=== PATIENT | female | born 1940 | race Caucasian/White ===

== ENCOUNTER 2018-02-16 16:31 | Observation (INO) | payer MEDICAID, MEDICARE ==
[2018-02-16] MEDS ORDERED: Sodium Chloride 0.9% 10 ML Syringe FLUSH PRN (17:21)
[2018-02-16] MEDS ORDERED: Sodium Chloride 0.9% 1,000 ML IV SCH (17:30)
[2018-02-16] MEDS ORDERED: Ondansetron 4 MG/2 ML SDV IV PRN (18:19)
--- NOTE | 2018-02-16 18:19 | EDM.PDOC ---
ED HPI GENERAL MEDICAL PROBLEM - General Chief Complaint: Cardiovascular Problem Stated Complaint: DIZZY,FALL Time Seen by Provider: 02/16/18 16:31 Source of Information: Reports: Patient, Family History Limitations: Reports: Physical Impairment - History of Present Illness INITIAL COMMENTS - FREE TEXT/NARRATIVE: 77 y.o.w.f with newly diagnosed Breast CA, came to the ed by EMS after she fell at home. Pt denies any pain. "i just got suddenly weak and fell on by budd and head. Before she fell she got lightheaded. Pt denied LOC denies any kind of pain. She had thsi never happen before. She lives by herself and gets meals on wheels. She take Coumadin because she had a blood clot in Her abdomen(?)10 or more years ago. She take potassium at home, denied any kidney issues. no other acute medical issues. Pt is a poor historian, poor hygiene, Daughter is present. BP 117/74 Pulse ox 95% on RA RR 18, Temp 36.8 Onset Date: 02/16/18 Onset Time: 12:00 Duration: Hour(s): Location: Reports: Back Severity: Mild Improves with: Reports: Rest Worsens with: Reports: Movement Context: Reports: Other (Fall) butt Pain Score (Numeric/FACES): 3 - Related Data Allergies Allergy/AdvReac Type Severity Reaction Status Date / Time No Known Allergies Allergy Verified 02/16/18 17:32 Home Meds: Home Meds Calcium Carbonate/Vitamin D3 [Calcium 600 + Vit D 200] 1 tab PO BID 02/16/18 [ History] Cholestyramine (With Sugar) [Cholestyramine Powder] 1 scoop PO BID 02/16/18 [ History] Diphenoxylate HCl/Atropine [Lomotil] 1 tab PO BID PRN 02/16/18 [History] Doxepin [SINEquan] 25 mg PO BEDTIME 02/16/18 [History] Doxepin [SINEquan] 100 mg PO BEDTIME 02/16/18 [History] Enalapril [Vasotec] 5 mg PO DAILY 02/16/18 [History] Hydrochlorothiazide 12.5 mg PO DAILY 02/16/18 [History] LORazepam 0.5 mg PO BEDTIME PRN 02/16/18 [History] Latanoprost 1 drop EYEBOTH BEDTIME 02/16/18 [History] Levothyroxine 112 mcg PO DAILY 02/16/18 [History] Worthing Carbonate 300 mg PO BEDTIME 02/16/18 [History] Metoprolol Succinate [Toprol Xl] 50 mg PO DAILY 02/16/18 [History] Multivitamin [Multivitamins] 1 tab PO DAILY 02/16/18 [History] Pantoprazole Sodium 40 mg PO BID 02/16/18 [History] Potassium Chloride 10 meq PO DAILY 02/16/18 [History] Triamcinolone Acetonide [Triamcinolone Acetonide 0.1% Crm] 1 applic TOP BID [History] Warfarin Sodium [Jantoven] 2.5 mg PO DAILY 02/16/18 [History] amLODIPine Besylate [Norvasc] 2.5 mg PO DAILY 02/16/18 [History] atorvaSTATin Calcium [Atorvastatin Calcium] 20 mg PO BEDTIME 02/16/18 [History] ED ROS GENERAL - Review of Systems Review Of Systems: See Below Constitutional: Reports: Weakness, Fatigue HEENT: Reports: Other (dry mucosal membrane) Respiratory: Reports: No Symptoms Cardiovascular: Reports: Lightheadedness, Palpitations, Syncope Endocrine: Reports: No Symptoms GI/Abdominal: Reports: No Symptoms : Reports: No Symptoms Musculoskeletal: Reports: No Symptoms Skin: Reports: No Symptoms Neurological: Reports: Dizziness, Other (posible near syncopy) Psychiatric: Reports: No Symptoms Hematologic/Lymphatic: Reports: No Symptoms Immunologic: Reports: No Symptoms ED EXAM, GENERAL - Physical Exam Exam: See Below Exam Limited By: Altered Mental Status General Appearance: Alert, WD/WN, Mild Distress Eye Exam: Bilateral Eye: Normal Inspection Ears: Normal External Exam Ear Exam: Bilateral Ear: Auricle Normal Throat/Mouth: Normal Lips, Normal Gums, No Airway Compromise, Other (dry mucosal mmebrane) Head: Other (tender left occiput) Neck: Supple, Non-Tender, Full Range of Motion Respiratory/Chest: No Respiratory Distress, Lungs Clear, Normal Breath Sounds Cardiovascular: Other (Mobitz Typ II arrythmia) Peripheral Pulses: 1+: Brachial (R) GI/Abdominal: Normal Bowel Sounds, Soft, Non-Tender, No Organomegaly (Female) Exam: Deferred Rectal (Female) Exam: Deferred Back Exam: Normal Inspection, Full Range of Motion Extremities: Normal Inspection, Normal Range of Motion, Non-Tender, No Pedal Edema Neurological: Alert, Oriented, CN II-XII Intact, Normal Cognition, Other ( unsteady gate) Psychiatric: Normal Affect, Anxious Skin Exam: Warm, Dry, Other (possible psoriasis abd. wall) Lymphatic: No Adenopathy EKG INTERPRETATION EKG Date: 02/16/18 Time: 17:10 Rhythm: NSR Rate (Beats/Min): 92 [place]: Normal P-Wave: Present QRS: Normal ST-T: Normal QT: Prolonged (603) Comparison: NA - No Prior EKG EKG Interpretation Comments: Mobitz Typ II arrhythmia Course - Vital Signs Text/Narrative:: 77 y.o.w.f with newly diagnosed Breast CA, came to the ed by EMS after she fell at home. Pt denies any pain. "i just got suddenly weak and fell on by budd and head. Before she fell she got lightheaded. Pt denied LOC denies any kind of pain. She had thsi never happen before. She lives by herself and gets meals on wheels. She take Coumadin because she had a blood clot in Her abdomen(?)10 or more years ago. She take potassium at home, denied any kidney issues. no other acute medical issues. Pt is a poor historian, poor hygiene, Daughter is present. BP 117/74 Pulse ox 95% on RA RR 18, Temp 36.8 PE: WNWD W F came to the ED by EMS after she had a possible near syncope at home , poor historian. Imaging: CT head: NAD CXR: NAD, official report is pending Labs: Na 137 K 2.4 Cr. 2.2 BUN 31 INR 3.99 WBC 15.3 GFR 22 CK 199 UA pos for UTI ( was pending at time of admision) Impression: Renal insuff, Hypokalemia, Hypertherapeutic INR, H/O DVT, Mobits Typ II Arrythmia, Fall. Breast CA (newly diagnosed), possible near syncope. UTI Tx: NS, Cipro (started 02/17/2018 11 am), hold Coumadine 6.08pm Consultation: Dr. Light< hospitalist: Admit pt to tele Plan: Admit Last Recorded V/S: Last Vital Signs Temp 36.5 C 02/17/18 08:19 Pulse 90 02/17/18 08:19 Resp 18 02/17/18 08:19 BP 118/66 02/17/18 08:19 Pulse Ox 93 L 02/17/18 10:16 - Orders/Labs/Meds Orders: Active Orders 24 hr Category Date Time Status Chest 1V Frontal [CR] Stat Exams 02/16/18 17:21 Taken UA W/MICROSCOPIC [URIN] Stat Lab 02/17/18 00:25 Ordered Sodium Chloride 0.9% [Saline Flush] Med 02/16/18 17:21 Active 10 ml FLUSH ASDIRECTED PRN Peripheral IV Insertion Adult [OM.PC] Routine Oth 02/16/18 17:21 Ordered EKG 12 Lead [EK] Routine Ther 02/16/18 17:00 Ordered Medication Orders Amlodipine Besylate (Norvasc) 2.5 mg PO DAILY ARYAN Last Admin: 02/17/18 10:51 Dose: 2.5 mg Doxepin HCl (Sinequan) 25 mg PO BEDTIME ARYAN Doxepin HCl (Sinequan) 100 mg PO BEDTIME ARYAN Enalapril Maleate (Vasotec) 5 mg PO DAILY ARYAN Potassium Chloride/Sodium Chloride (Normal Saline With 20 Meq Kcl) 1,000 mls @ 125 mls/hr IV ASDIRECTED ARYAN Last Admin: 02/17/18 08:25 Dose: 125 mls/hr Infusion: 02/17/18 08:23 Dose: 125 mls/hr Admin: 02/17/18 00:23 Dose: 125 mls/hr Levothyroxine Sodium (Levothyroxine) 112 mcg PO DAILY ARYAN Last Admin: 02/17/18 10:51 Dose: 112 mcg [place] Carbonate (Eskalith) 300 mg PO BEDTIME ARYAN Lorazepam (Ativan) 0.5 mg PO BEDTIME PRN PRN Reason: Insomnia Metoprolol Succinate (Toprol Xl) 50 mg PO DAILY ARYAN Ondansetron HCl (Zofran) 4 mg IV Q4H PRN PRN Reason: Nausea/Vomiting Pantoprazole Sodium (Protonix) 40 mg PO BID [facility] Potassium Chloride (Klor-Con 10) 10 meq PO DAILY [facility] Sodium Chloride (Saline Flush) 10 ml FLUSH ASDIRECTED PRN PRN Reason: Keep Vein Open Last Admin: 02/16/18 17:30 Dose: 10 ml Labs: Laboratory Tests 02/16/18 02/16/18 02/16/18 Range/Units 17:35 17:35 17:35 WBC 15.1 H (4.5-12.0) X10-3/uL RBC 4.37 (3.23-5.20) x10(6)uL Hgb 13.4 (11.5-15.5) g/dL Hct 39.2 (30.0-51.3) % MCV 89.8 (80-96) fL MCH 30.6 (27.7-33.6) pg MCHC 34.1 (32.2-35.4) g/dL RDW 14.8 (11.5-15.5) % Plt Count 402 H (125-369) X10(3)uL MPV 8.1 (7.4-10.4) fL Add Manual Diff Yes Neutrophils % (Manual) 78 (46-82) % Band Neutrophils % 5 (0-6) % Lymphocytes % (Manual) 8 L (13-37) % Monocytes % (Manual) 9 (4-12) % PT 41.4 H* (8.7-11.1) INR 3.99 H (0.89-1.13) Sodium 139 (135-145) mmol/L Potassium 2.4 L* (3.5-5.3) mmol/L Chloride 103 (100-110) mmol/L Carbon Dioxide 24 (21-32) mmol/L BUN 31 H (7-18) mg/dL Creatinine 2.2 H* (0.55-1.02) mg/dL Est Cr Clr Drug Dosing TNP Estimated GFR (MDRD) 22 L (>60) BUN/Creatinine Ratio 14.1 (9-20) Glucose 103 (80-116) mg/dL Calcium 9.5 (8.6-10.2) mg/dL Creatine Kinase 199 H (60-160) IU/L Troponin I (<0.017-0.056) ng/mL 02/16/18 Range/Units 17:35 WBC (4.5-12.0) X10-3/uL RBC (3.23-5.20) x10(6)uL Hgb (11.5-15.5) g/dL Hct (30.0-51.3) % MCV (80-96) fL MCH (27.7-33.6) pg MCHC (32.2-35.4) g/dL RDW (11.5-15.5) % Plt Count (125-369) X10(3)uL MPV (7.4-10.4) fL Add Manual Diff Neutrophils % (Manual) (46-82) % Band Neutrophils % (0-6) % Lymphocytes % (Manual) (13-37) % Monocytes % (Manual) (4-12) % PT (8.7-11.1) INR (0.89-1.13) Sodium (135-145) mmol/L Potassium (3.5-5.3) mmol/L Chloride (100-110) mmol/L Carbon Dioxide (21-32) mmol/L BUN (7-18) mg/dL Creatinine (0.55-1.02) mg/dL Est Cr Clr Drug Dosing Estimated GFR (MDRD) (>60) BUN/Creatinine Ratio (9-20) Glucose (80-116) mg/dL Calcium (8.6-10.2) mg/dL Creatine Kinase (60-160) IU/L Troponin I < 0.017 L (<0.017-0.056) ng/mL Meds: Medications Generic Name Dose Route Start Last Admin Trade Name Mary PRN Reason Stop Dose Admin Amlodipine Besylate 2.5 mg 02/17/18 10:42 02/17/18 10:51 Norvasc PO 2.5 mg DAILY ARYAN Administration Doxepin HCl 25 mg 02/17/18 21:00 Sinequan PO BEDTIME ARYAN Doxepin HCl 100 mg 02/17/18 21:00 Sinequan PO BEDTIME ARYAN Enalapril Maleate 5 mg 02/18/18 09:00 Vasotec PO DAILY ARYAN Potassium Chloride/Sodium Chloride 1,000 mls @ 125 mls/hr 02/16/18 23:30 12/06 08:25 Normal Saline With 20 Meq Kcl IV 125 mls/hr ASDIRECTED ARYAN Administration Levothyroxine Sodium 112 mcg 02/17/18 10:00 02/17/18 10:51 Levothyroxine PO 112 mcg DAILY ARYAN Administration Worthing Carbonate 300 mg 02/17/18 21:00 Eskalith PO BEDTIME ARYAN Lorazepam 0.5 mg 02/17/18 09:50 Ativan PO BEDTIME PRN Insomnia Metoprolol Succinate 50 mg 02/18/18 09:00 Toprol Xl PO DAILY [facility] Ondansetron HCl 4 mg 02/16/18 18:19 Zofran IV Q4H PRN Nausea/Vomiting Pantoprazole Sodium 40 mg 02/17/18 21:00 Protonix PO BID ARYAN Potassium Chloride 10 meq 02/18/18 09:00 Klor-Con 10 PO DAILY ARYAN Sodium Chloride 10 ml 02/16/18 17:21 02/16/18 17:30 Saline Flush FLUSH 10 ml ASDIRECTED PRN Administration Keep Vein Open Discontinued Medications Generic Name Dose Route Start Last Admin Trade Name Freq PRN Reason Stop Dose Admin Amlodipine Besylate 2.5 mg 02/17/18 10:00 02/17/18 10:54 Norvasc PO Not Given DAILY ARYAN Amlodipine Besylate Confirm 02/17/18 10:32 02/17/18 10:48 Norvasc Administered 02/17/18 10:33 Not Given Dose 5 mg .ROUTE .STK-MED ONE Ciprofloxacin 500 mg 02/17/18 10:45 02/17/18 10:51 Ciprofloxacin Hcl PO 02/17/18 10:46 500 mg ONETIME STA Administration Enalapril Maleate 5 mg 02/17/18 10:00 02/17/18 10:54 Vasotec PO Not Given DAILY [facility] Enalapril Maleate Confirm 02/17/18 10:33 02/17/18 10:48 Vasotec Administered 02/17/18 10:34 Not Given Dose 5 mg .ROUTE .STK-MED ONE Enalapril Maleate 5 mg 02/17/18 10:45 02/17/18 10:51 Vasotec PO 02/17/18 10:46 5 mg ONETIME ONE Administration Sodium Chloride 1,000 mls @ 125 mls/hr 02/16/18 17:30 02/16/18 17:30 Normal Saline IV 125 mls/hr ASDIRECTED [facility] Administration Potassium Chloride 40 meq 02/16/18 23:25 02/17/18 00:20 Klor-Con M20 PO 02/16/18 23:26 40 meq ONETIME ONE Administration Departure - Departure Time of Disposition: 19:00 Disposition: Admitted As Inpatient 67 Condition: Fair Clinical Impression: Near syncope, Palpitations, Mobitz (type) II atrioventricular block Fall Qualifiers: Encounter type: initial encounter Qualified Code(s): W19.XXXA - Unspecified fall, initial encounter - My Orders Last 24 Hours: My Active Orders 02/16/18 17:00 EKG 12 Lead [EK] Routine 02/16/18 17:21 Chest 1V Frontal [CR] Stat Sodium Chloride 0.9% [Saline Flush] 10 ml FLUSH ASDIRECTED PRN Peripheral IV Insertion Adult [OM.PC] Routine 02/17/18 00:25 UA W/MICROSCOPIC [URIN] Stat - Assessment/Plan Last 24 Hours: My Active Orders 02/16/18 17:00 EKG 12 Lead [EK] Routine 02/16/18 17:21 Chest 1V Frontal [CR] Stat Sodium Chloride 0.9% [Saline Flush] 10 ml FLUSH ASDIRECTED PRN Peripheral IV Insertion Adult [OM.PC] Routine 02/17/18 00:25 UA W/MICROSCOPIC [URIN] Stat
[2018-02-16] MEDS ORDERED: Potassium Chloride 20 MEQ Tab.ER PO ONE (23:25)
[2018-02-17] MEDS: NS + KCl 20mEq/L 1,000 ML IV SCH ×2 (00:23→08:25)
[2018-02-17] MEDS ORDERED: LORazepam 0.5 MG Tab PO PRN (09:50)
[2018-02-17] MEDS ORDERED: amLODIPine 2.5 MG Tab PO SCH (10:00)
[2018-02-17] MEDS ORDERED: Enalapril 5 MG Tab PO SCH (10:00)
[2018-02-17] MEDS ORDERED: amLODIPine 5 MG Tab ONE (10:32)
[2018-02-17] MEDS ORDERED: amLODIPine 5 MG Tab PO SCH (10:42)
[2018-02-17] MEDS ORDERED: Ciprofloxacin 500 MG Tab PO STA (10:45)
[2018-02-17] MEDS: Levothyroxine 112 MCG Tab PO SCH (10:51)
--- NOTE | 2018-02-17 13:17 | HP ---
ADMISSION DATE: 02/16/2018 HISTORY OF PRESENT ILLNESS: Verenice Marcano is a 77-year-old female from [facility]. She was seen at [place] [facility]. She had a weak spell, sense of unsteadiness, and took a fall in her home in the bathroom. Luckily, her daughter attended her through the day. She denies chest pain, respiratory difficulty, or loss of consciousness. She was seen at [place] [facility]. Chest x-ray performed, no major pathology. CT normal by my observations. Laboratory studies were reviewed revealed INR 3.99, white count 15,100, platelet count 402,000, GFR 22, creatinine 2.2. Hypokalemia was treated, was admitted to the hospital, under present therapy. MEDICATIONS: Please see med recon list at length. ALLERGIES: No medication, environmental, or latex allergies. PAST MEDICAL HISTORY: Significant for right breast mastectomy for breast cancer 18 years ago, cholecystectomy for gallbladder disease. No other operative procedures, hospitalizations, unusual childhood diseases, major injuries, or fractures. Chronic illnesses include hypertension; atrial fibrillation, rate controlled on warfarin therapy; and mood disorder. 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 Three daughters, 1 son, 14 grandchildren. Nonsmoker. No alcohol consumption. No illicit drug use. REVIEW OF SYSTEMS: Please see HPI. EYES: Wears corrective glasses. OROPHARYNX: Upper and lower dentures. CARDIOVASCULAR: Denies chest pain, palpitations, or syncope. RESPIRATORY: Denies cough, respiratory difficulty, or hemoptysis. GASTROINTESTINAL: Regular predictable stools, no blood in stools. GENITOURINARY: Good voiding pattern. No blood in urine. SKIN: No open sores or lesions. ENDOCRINE: No excessive thirst or urination. ALLERGIC: No chronic cough, wheeze, or congestion. PHYSICAL EXAMINATION: VITAL SIGNS: Stable and documented. GENERAL: Elderly, cooperative, conversant, a bit whimsical with the conversation. Speech was fluent. EYES: Funduscopic benign. Conjunctivae clear. EARS: Bright tympanic membranes. Decreased hearing. NOSE: Clear nasal discharge. MOUTH AND OROPHARYNX: Clear. No intraoral lesions. NECK: Benign. Thyroid small. No carotid bruits. CHEST: Clear in all lung spencer. No adventitious sounds. HEART: Regular without ectopy or murmur. BREASTS: Right breast absent. Surgical site with Steri-Strips. Left breast 10 o'clock reviewed. ABDOMEN: Benign. Surgical scars well healed. GENITOURINARY AND RECTAL: Deferred. EXTREMITIES: Well perfused. Reflex symmetric. LABORATORY STUDIES: As above. ASSESSMENT: Recent fall, origin undetermined, intact brain, elevated INR. PLAN: We will withhold Coumadin at this time, intervention and care, close observation. Treatment as appropriate. Expectations accordingly. /[id number] /MARTHA
[2018-02-17] MEDS: Potassium Chloride 20 MEQ Tab.ER PO SCH (20:56)
[2018-02-17] MEDS: Pantoprazole 40 MG Tab.CR PO SCH (20:57)
[2018-02-17] MEDS ORDERED: Lithium Carbonate 300 MG Cap PO SCH (21:00)
[2018-02-17] MEDS ORDERED: Doxepin 25 MG Cap PO SCH ×2 (21:00)
[2018-02-18] MEDS ORDERED: Potassium Chloride 10 MEQ Tab.ER PO SCH (09:00)
[2018-02-18] MEDS ORDERED: Metoprolol Succinate 50 MG Tab.ER PO SCH (09:00)
[2018-02-18] MEDS ORDERED: Enalapril 5 MG Tab PO SCH (09:00)
[2018-02-18] MEDS: Pantoprazole 40 MG Tab.CR PO SCH (09:25)
[2018-02-18] MEDS: Levothyroxine 112 MCG Tab PO SCH (09:25)
[2018-02-18] MEDS: Potassium Chloride 20 MEQ Tab.ER PO SCH (10:22)
[2018-02-18] MEDS ORDERED: Ciprofloxacin 500 MG Tab PO SCH (11:00)
--- NOTE | 2018-02-18 14:05 | CR ---
INDICATION: Breast CA, fall. CHEST: An AP portable view of the chest was obtained upright, 02/16/2018, and revealed the heart to be within normal limits in size to slightly prominent, emphasized by rotation of the patient to the left. The aorta is tortuous with minimal calcification in the arch. Overlying EKG leads are noted. A definite active infiltrate or effusion was not identified, with decreased density in the right lung due to rotation of the patient to the left. Evidence of exogenous obesity is noted. Axillary node dissection and evidence of breast surgery is noted on the right. No definite metastatic disease process was suggested. IMPRESSION: 1. No definite acute process. 2. Probable ASHD. 3. Findings compatible with breast CA and axillary node dissection on the right are noted without definite evidence of metastatic disease. MTDD
--- NOTE | 2018-02-19 09:28 | DISCH ---
DISCHARGE DATE: 02/18/2018 DISCHARGE DIAGNOSES: 1. Marked hyponatremia with cardiac arrhythmia. 2. Elevated pro-time/INR. 3. Fall without consequence. HOSPITAL COURSE: Verenice Marcano is a 77-year-old, female, who lives independently. She had taken a fall in her home in her bathroom, was attended to her by her daughter and brought to the hospital. Diagnostic studies were unremarkable. Chest x-ray, no major pathology. CT normal by age, markedly elevated INR at 3.99, and potassium at 2.4. She had some mild atrial dysrhythmia without pathologic findings. Admitted to the hospital for intervention. Telemetry was satisfactory, minimal bradycardia, no complicating issues. She is scheduled to have surgery for a recent biopsy-proven right breast cancer. Dr. Drew, provider of record, [facility]. Potassium was replaced, symptoms improved, rhythm was stabilized. Discharged home with potassium 3.5. On a host of blood pressure pills. Will discontinue the hydrochlorothiazide, continue potassium orally, increase high potassium foods, and intervention. PHYSICAL EXAMINATION ON DISCHARGE: VITAL SIGNS: Temperature 36.4, pulse 80, blood pressure 116/55, respirations 20, O2 saturations 98%. GENERAL: Cooperative, conversant. Soft spoken. NECK: Benign. Thyroid small. CHEST: Clear in all lung spencer. HEART: Regular without ectopy or murmur. ABDOMEN: Benign. Absent right breast, biopsy site medial aspect right breast, Steri-Strips in place. PLAN: Discharge home with recommendations as above. Followup appointment with Dr. Drew. Surgery under consideration - delayed per patient's discussion. Follow up with Dr. Molina in 2 weeks' time. Recheck hospital visit and potassium level. /[id number] /MARTHA CC: Donaldo Drew MD
== END 2018-02-18 10:55 | disposition home or self-care (01) ==
LOC: FB.ED 16:31 → FB.MS 18:19 → FB.ED 19:05
PROVIDERS: ADMIT Family Medicine; ATTEND Family Medicine
DX: E87.1 Hypo-osmolality and hyponatremia (principal); I49.9 Cardiac arrhythmia, unspecified; R79.1 Abnormal coagulation profile; E87.6 Hypokalemia; I10 Essential (primary) hypertension; I48.91 Unspecified atrial fibrillation; W19.XXXA Unspecified fall, initial encounter; Z90.11 Acquired absence of right breast and nipple; Z85.3 Personal history of malignant neoplasm of breast; Z79.01 Long term (current) use of anticoagulants; Z79.899 Other long term (current) drug therapy
CPT/HCPCS: 36415; 70450; 71045; 80048; 81001; 82550; 83605; 84132; 84484; 85025; 85610; 87086; 93005; 96360; 96361; 99285; A9270; J2405; J3480; J7040; J7050; 96375; G0378

== ENCOUNTER → 2019-10-01 | Outpatient (CLI) | payer MEDICARE, BC | LOC: FB.CLBR 08:00 | PROVIDERS: ATTEND Nurse Practitioner Family | DX: S51.851A Open bite of right forearm, initial encounter (principal); W54.0XXA Bitten by dog, initial encounter | CPT/HCPCS: 99213 ==

== ENCOUNTER 2019-11-07 15:59 | Emergency (ER) | payer MEDICARE, MEDICAID ==
--- NOTE | 2019-11-07 16:27 | EDM.PDOC ---
ED HPI GENERAL MEDICAL PROBLEM - General Chief Complaint: Cardiovascular Problem Stated Complaint: HIGH BP Time Seen by Provider: 11/07/19 16:15 Source of Information: Reports: Patient History Limitations: Reports: No Limitations - History of Present Illness INITIAL COMMENTS - FREE TEXT/NARRATIVE: 78-year-old female with history of high blood pressure who apparently was seen in clinic yesterday telemedicine psychiatry's noted to have an elevated blood pressure on 3 different readings. She was seen by the physician executive marketing assistant who consulted with Dr. Molina and it was felt that the patient was having anxiety- type problems and the patient was given Ativan as well as being placed on Seroquel. It should be noted that the patient had no chest pain, shortness of breath, headaches at that time, just elevated blood pressure. Apparently today at the [facility] living, her blood pressure was rechecked and it was noted to be elevated again in the 190-200 systolic range. She again denies any chest pain, shortness of breath, headache, abdominal pain, urinary symptoms, confusion or any other symptoms. After having 3 abnormal readings, it was recommended that she come to the emergency department for evaluation. She has been eating and drinking normally. She has been taking her medications as directed. She did take an Ativan today after her first abnormal blood pressure reading and it did not seem to have any effect. She denies any pain at present. She rates her pain as a 0/10. There are no other associated signs or symptoms. There are no other modifying factors. Onset: Other (Yesterday) Duration: Constant Location: Reports: Other (No pain. No symptoms.) Quality: Reports: Other (That applicable) Improves with: Reports: None Worsens with: Reports: None Context: Reports: Other (As above) Associated Symptoms: Reports: No Other Symptoms (No symptoms. Just elevated blood pressure.) Treatments SECRETARY RECEPTIONIST: Reports: Other Medication(s) (Ativan) - Related Data Allergies Allergy/AdvReac Type Severity Reaction Status Date / Time No Known Allergies Allergy Verified 02/24/19 09:02 Home Meds: Home Meds Cholestyramine (With Sugar) [Cholestyramine Powder] 1 scoop PO BID 02/16/18 [ History] LORazepam 0.5 mg PO DAILY PRN 02/16/18 [History] Levothyroxine 112 mcg PO DAILY 02/16/18 [History] Y[place]y Carbonate 300 mg PO BEDTIME 02/16/18 [History] Metoprolol Succinate [Toprol Xl] 25 mg PO DAILY 02/16/18 [History] Potassium Chloride 10 meq PO DAILY 02/16/18 [History] Alendronate Sodium 70 mg PO WE 10/20/18 [History] Furosemide [Lasix] 20 mg PO DAILY #20 tab 10/20/18 [Rx] Warfarin Sodium [Jantoven] 2.5 mg PO DAILY 10/20/18 [History] Anastrozole [Arimidex] 1 mg PO DAILY 11/07/19 [History] Calcium Carbonate/Vitamin D3 [Caltrate 600+D 1500 MG-400 Units] 1 tab PO DAILY 11/07/19 [History] Diphenoxylate HCl/Atropine [Lomotil] 1 tab PO DAILY PRN 11/07/19 [History] Enalapril Maleate 20 mg PO DAILY 11/07/19 [History] Latanoprost [Xalatan] 1 drop EYEBOTH BEDTIME 11/07/19 [History] Multivit-Min/FA/Lycopen/Lutein [Certavite Sr-Antioxidant Tab] 1 tab PO DAILY [History] Phytonadione [Vitamin K] 100 mg PO DAILY 11/07/19 [History] QUEtiapine Fumarate [Quetiapine Fumarate] 100 mg PO BEDTIME 11/07/19 [History] amLODIPine [Norvasc] 5 mg PO DAILY #30 tab 11/07/19 [Rx] Past Medical History Cardiovascular History: Reports: Heart Failure, High Cholesterol, Hypertension Other MENDER HAND History: Musculoskeletal History: Reports: Arthritis, Other (See Below) (Lower extremity DVTs) Endocrine/Metabolic History: Reports: Hypothyroidism Hematologic History: Reports: Anticoagulation Therapy Oncologic (Cancer) History: Reports: Breast - Infectious Disease History Infectious Disease History: Reports: Chicken Pox, Mumps, Other (See Below) Other Infectious Disease History: Unsure if she had Measles or Rubella as a child. - Past Surgical History HEENT Surgical History: Reports: Tonsillectomy GI Surgical History: Reports: Cholecystectomy Female Surgical History: Reports: Section, Mastectomy (Bilateral) Oncologic Surgical History: Reports: Mastectomy Other Oncologic Surgeries/Procedures: Right mastectomy 18 years ago. May need left breast surgery for discovery of lumps. Social & Family History - Tobacco Use Smoking Status *Q: Former Smoker (Quit 8 years ago) - Caffeine Use Caffeine Use: Reports: Coffee, Soda - Alcohol Use Alcohol Use History: No - Living Situation & Occupation Living situation: Reports: Assisted Living Occupation: Retired Social History Comment: She is here with her daughter. ED ROS GENERAL - Review of Systems Review Of Systems: See Below Constitutional: Reports: No Symptoms HEENT: Reports: No Symptoms Respiratory: Reports: No Symptoms Cardiovascular: Reports: Blood Pressure Problem (Blood pressure reading was elevated, but no symptoms.) Endocrine: Reports: No Symptoms GI/Abdominal: Reports: No Symptoms : Reports: No Symptoms Musculoskeletal: Reports: Other (Chronic edema in both legs.) Skin: Reports: No Symptoms Neurological: Reports: No Symptoms Hematologic/Lymphatic: Reports: Easy Bleeding, Easy Bruising, Other ( Chronically anticoagulated with Coumadin.) Immunologic: Reports: No Symptoms ED EXAM, GENERAL - Physical Exam Exam: See Below Exam Limited By: No Limitations General Appearance: Alert, WD/WN, No Apparent Distress Eye Exam: Bilateral Eye: EOMI, Normal Inspection Ears: Normal External Exam, Hearing Grossly Normal Ear Exam: Bilateral Ear: Auricle Normal Nose: Normal Inspection, Normal Mucosa, No Blood Throat/Mouth: Normal Inspection, Normal Lips, Normal Oropharynx, Normal Voice, No Airway Compromise Head: Atraumatic, Normocephalic Neck: Normal Inspection, Supple, Non-Tender, Full Range of Motion Respiratory/Chest: No Respiratory Distress, Lungs Clear, Normal Breath Sounds, No Accessory Muscle Use, Chest Non-Tender Cardiovascular: Normal Peripheral Pulses, Regular Rate, Rhythm, No JVD, No Murmur Peripheral Pulses: 2+: Radial (L), Radial (R) GI/Abdominal: Normal Bowel Sounds, Soft, Non-Tender, No Mass Back Exam: Normal Inspection, Full Range of Motion Extremities: Normal Range of Motion, Non-Tender, Normal Capillary Refill Neurological: Alert, Oriented, CN II-XII Intact, Normal Cognition, No Motor/ Sensory Deficits Psychiatric: Normal Affect Skin Exam: Warm, Dry, Intact, Normal Color, No Rash Course - Vital Signs Last Recorded V/S: Last Vital Signs Temp 37.1 C 11/07/19 15:59 Pulse 84 11/07/19 16:57 Resp 16 11/07/19 15:59 BP 221/91 H 11/07/19 16:57 Pulse Ox 96 11/07/19 15:59 - Orders/Labs/Meds Meds: Medications Discontinued Medications Generic Name Dose Route Start Last Admin Trade Name Mary PRN Reason Stop Dose Admin Amlodipine Besylate 5 mg 11/08/19 16:46 Norvasc PO 11/08/19 16:47 ONETIME ONE Amlodipine Besylate 5 mg 11/07/19 16:49 11/07/19 16:57 Norvasc PO 11/07/19 16:50 5 mg ONETIME ONE Administration Metoprolol Tartrate 25 mg 11/07/19 16:45 11/07/19 16:57 Lopressor PO 11/07/19 16:46 25 mg ONETIME ONE Administration - Re-Assessments/Exams Free Text/Narrative Re-Assessment/Exam: 11/07/19 16:40: I discussed the patient's case with Dr. Molina, the patient's primary provider, as he had consulted with the PA who saw the patient yesterday in clinic and he recommends placing the patient back on amlodipine 5 mg daily and increasing the patient's metoprolol to 25 mg by mouth twice daily. He does not feel that any workup is needed at this time. He recommends that the patient follow-up in clinic with them in the next week or so. He eels that the patient is safe for discharge following the above. The patient is completely asymptomatic now. I discussed this with the patient and with her daughter and they are in agreement with this plan. Departure - Departure Time of Disposition: 17:05 Disposition: Home, Self-Care 01 Condition: Good Clinical Impression: Hypertension, uncontrolled Prescriptions: amLODIPine [Norvasc] 5 mg PO DAILY #30 tab Instructions: Hypertension, [id number], Managing Your Hypertension Referrals: Giovanny Molina MD [Primary Care Provider] - Forms: ED Department Discharge Additional Instructions: Your blood pressure is elevated. I discussed your case with Dr. Molina and he recommended adding new medication for your blood pressure. Change your metoprolol to 25 mg by mouth daily (you are now taking it once daily). New medication as prescribed (amlodipine 5 mg). You were given a dose of each of these today. You should have your blood pressure checked daily and keep a record of this to take with you when you follow-up with your doctor. You will need to follow-up with your primary provider in the next 1-2 weeks for recheck. Back to the emergency department for chest pain, trouble breathing, headache, vomiting, confusion, localized area of weakness or any other concerning sign or symptom. Sepsis Event Note - Focused Exam Vital Signs: Vital Signs Temp Pulse Pulse Resp BP BP Pulse Ox 11/07/19 16:57 84 221/91 H 11/07/19 15:59 37.1 C 84 16 221/91 H 96 Date Exam was Performed: 11/07/19 Time Exam was Performed: 17:43
[2019-11-07] MEDS ORDERED: Metoprolol Tartrate 25 MG Tab PO ONE (16:45)
[2019-11-07] MEDS ORDERED: amLODIPine 5 MG Tab PO ONE (16:49)
[2019-11-08] MEDS ORDERED: amLODIPine 5 MG Tab PO ONE (16:46)
== END 2019-11-07 17:30 | disposition home or self-care (01) ==
LOC: FB.ED 15:59
DX: I11.0 Hypertensive heart disease with heart failure (principal); I50.9 Heart failure, unspecified; E78.00 Pure hypercholesterolemia, unspecified; E03.9 Hypothyroidism, unspecified; Z79.899 Other long term (current) drug therapy; Z79.890 Hormone replacement therapy; Z79.01 Long term (current) use of anticoagulants; Z87.891 Personal history of nicotine dependence
CPT/HCPCS: 99283; A9270-GY

== ENCOUNTER 2021-10-23 09:00 | Inpatient (IN) | payer BC, MEDICARE ==
--- NOTE | 2021-10-23 09:40 | EDM.PDOC ---
ED HPI GENERAL MEDICAL PROBLEM - General Chief Complaint: General Stated Complaint: FALL Time Seen by Provider: 10/23/21 09:20 Source of Information: Reports: Patient, Family History Limitations: Reports: Other (Patient is a poor historian) - History of Present Illness INITIAL COMMENTS - FREE TEXT/NARRATIVE: 80-year-old lady brought to the emergency department by her daughter after being found on the floor at [facility]. Patient was seen in the walk-in clinic at [place], [place] on 10/19/2021. Lab analysis showed that she did not have a urinary tract infection at the time. At the time that I saw her I thought that she possibly was suffering from polypharmacy including the use of lorazepam, Fosamax, amlodipine, lithium ca rbonate, and quetiapine. Patient also takes propranolol, Lasix, Mihaela. Patient was seen in the walk-in clinic with the complaint of a 2 to 3-day history of increased weakness and confusion. She had had the symptoms in the past associated with UTI but she was not found to have UTI in the walk-in clinic. She was seen again yesterday at a different walk-in clinic and was restarted on her lorazepam. This morning she was trying to empty the garbage and thinks she must of just become weak and fell to the ground. She does not remember falling, she does not remember passing out. She has no physical aches or pains and no complaints. She does have some cough and congestion. She does not have fever, nausea, vomiting, chest pain. She does not complain of head pain, neck pain and has no other orthopedic complaints. - Related Data Allergies Allergy/AdvReac Type Severity Reaction Status Date / Time No Known Allergies Allergy Verified 02/24/19 09:02 Home Meds: Home Meds Cholestyramine (With Sugar) [Cholestyramine Powder] 1 scoop PO BID 02/16/18 [History] LORazepam 0.5 mg PO BID PRN 02/16/18 [History] Levothyroxine 112 mcg PO DAILY 02/16/18 [History] [place] Carbonate 300 mg PO BEDTIME 02/16/18 [History] Potassium Chloride 10 meq PO DAILY 02/16/18 [History] Alendronate Sodium 70 mg PO WE 10/20/18 [History] Anastrozole [Arimidex] 1 mg PO DAILY 11/07/19 [History] Calcium Carbonate/Vitamin D3 [Caltrate 600+D 1500 MG-400 Units] 1 tab PO BID 11/07/19 [History] Diphenoxylate HCl/Atropine [Lomotil] 1 tab PO DAILY PRN 11/07/19 [History] Enalapril Maleate 20 mg PO DAILY 11/07/19 [History] Multivit-Min/FA/Lycopen/Lutein [Certavite Senior Tablet] 1 tab PO DAILY 11/07/19 [History] Phytonadione [Vitamin K] 100 mcg PO DAILY 11/07/19 [History] QUEtiapine Fumarate [Quetiapine Fumarate] 100 mg PO BEDTIME 11/07/19 [History] amLODIPine [Norvasc] 5 mg PO DAILY #30 tab 11/07/19 [Rx] Clobetasol [Clobetasol Propionate 0.05%] 1 applic TOP BID 10/23/21 [History] Fexofenadine [Mihaela] 180 mg PO DAILY PRN 10/23/21 [History] Fluticasone Propionate [Flonase] 2 spray DEMARCUS DAILY 10/23/21 [History] Propranolol HCl [Inderal LA] 80 mg PO DAILY 10/23/21 [History] Warfarin Sodium [Jantoven] 0 mg PO MO 10/23/21 [History] Past Medical History Cardiovascular History: Reports: Heart Failure, High Cholesterol, Hypertension DATA INPUT CLERK History: Reports: Other DATA INPUT CLERK History: Musculoskeletal History: Reports: Arthritis, Other (See Below) (Lower extremity DVTs) Endocrine/Metabolic History: Reports: Hypothyroidism Hematologic History: Reports: Anticoagulation Therapy Oncologic (Cancer) History: Reports: Breast - Infectious Disease History Infectious Disease History: Reports: Chicken Pox, Mumps, Other (See Below) Other Infectious Disease History: Unsure if she had Measles or Rubella as a child. - Past Surgical History HEENT Surgical History: Reports: Tonsillectomy GI Surgical History: Reports: Cholecystectomy Female Surgical History: Reports: Section, Mastectomy (Bilateral) Oncologic Surgical History: Reports: Mastectomy Other Oncologic Surgeries/Procedures: Right mastectomy 18 years ago. May need left breast surgery for discovery of lumps. Social & Family History - Family History Family Medical History: No Pertinent Family History - Caffeine Use Caffeine Use: Reports: Coffee, Soda - Living Situation & Occupation Living situation: Reports: Assisted Living Occupation: Retired ED ROS GENERAL - Review of Systems Review Of Systems: See Below Constitutional: Reports: Weakness HEENT: Reports: Rhinitis Respiratory: Reports: Cough Cardiovascular: Reports: No Symptoms Endocrine: Reports: No Symptoms GI/Abdominal: Reports: No Symptoms : Reports: No Symptoms Musculoskeletal: Reports: No Symptoms Skin: Reports: No Symptoms Neurological: Reports: Confusion, Difficulty Walking, Weakness Psychiatric: Reports: Other (History of bipolar) Hematologic/Lymphatic: Reports: No Symptoms Immunologic: Reports: No Symptoms ED EXAM, GENERAL - Physical Exam Exam: See Below Exam Limited By: No Limitations General Appearance: Alert, No Apparent Distress Eye Exam: Bilateral Eye: EOMI Head: Atraumatic, Normocephalic Neck: Normal Inspection, Non-Tender, Full Range of Motion Respiratory/Chest: Decreased Breath Sounds, Crackles Cardiovascular: Regular Rate, Rhythm GI/Abdominal: Normal Bowel Sounds Back Exam: Normal Inspection Extremities: Pedal Edema Neurological: Alert Psychiatric: Normal Affect, Normal Mood Skin Exam: Warm, Dry Course - Vital Signs Text/Narrative:: Review of lab analysis shows that the patient has a test that is positive for COVID-19. She also has mild acute kidney injury likely secondary to dehydration. Patient will be admitted to observation for further evaluation and treatment. - Orders/Labs/Meds Orders: Active Orders 24 hr Category Date Time Status CXR [Chest 2V] [CR] Stat Exams 10/23/21 09:27 Taken Labs: Laboratory Tests 10/23/21 10/23/21 10/23/21 Range/Units 09:45 09:45 10:19 WBC 7.3 (3.0-10.3) x10-3/uL RBC 3.92 (3.60-5.20) x10(6)uL Hgb 12.7 (11.4-15.5) g/dL Hct 38.4 (34.2-48.2) % MCV 98.0 (76.7-100.5) fL MCH 32.5 (23.9-33.9) pg MCHC 33.1 (31.9-34.8) g/dL RDW 13.7 (12.3-16.5) % Plt Count 257 (151-488) x10(3)uL MPV 6.9 L (7.1-12.4) fL Neut % (Auto) 76.0 (30.8-76.2) % Lymph % (Auto) 17.7 L (18.4-52.1) % [place] % (Auto) 5.4 (4.4-15.7) % Eos % (Auto) 0.5 L (0.6-8.1) % Baso % (Auto) 0.4 (0.2-1.5) % Neut # (Auto) 5.5 (1.5-6.3) x10-3/uL Lymph # (Auto) 1.3 (1.0-4.4) x10-3/uL [place] # (Auto) 0.4 (0.3-1.0) x10-3/uL Eos # (Auto) 0.0 (0.0-0.8) x10-3/uL Baso # (Auto) 0.0 (0.0-0.1) x10-3/uL Sodium 138 (135-145) mmol/L Potassium 3.9 (3.5-5.3) mmol/L Chloride 104 (100-110) mmol/L Carbon Dioxide 26 (21-32) mmol/L BUN 13 (7-18) mg/dL Creatinine 1.3 H (0.55-1.02) mg/dL Est Cr Clr Drug Dosing TNP Estimated GFR (MDRD) 40 L (>60) BUN/Creatinine Ratio 10.0 (9-20) Glucose 121 H (80-116) mg/dL Calcium 10.0 (8.6-10.2) mg/dL Magnesium 2.0 (1.8-2.5) mg/dL Total Bilirubin 0.3 (0.1-1.3) mg/dL AST 11 (5-25) IU/L ALT 26 D (12-36) U/L Alkaline Phosphatase 90 (56-112) IU/L Total Protein 7.0 (6.0-8.0) g/dL Albumin 3.0 L (3.2-4.6) g/dL Globulin 4.0 g/dL Albumin/Globulin Ratio 0.8 Urine Color Yellow (YELLOW) Urine Appearance Clear (CLEAR) Urine pH 5.0 (5.0-6.5) Ur Specific [place] 1.010 (1.010-1.025) Urine Protein Negative (NEGATIVE) mg/dL Urine Glucose (UA) Normal (NORMAL) mg/dL Urine Ketones Negative (NEGATIVE) mg/dL Urine Occult Blood Negative (NEGATIVE) Urine Nitrite Negative (NEGATIVE) Urine Bilirubin Negative (NEGATIVE) Urine Urobilinogen Normal (NEGATIVE) mg/dL Ur Leukocyte Esterase Negative (NEGATIVE) Urine RBC 0-5 (0-5) Urine WBC 0-5 (0-5) Ur Squamous Epith Cells Few H (NS,R,O) Urine Bacteria Occasional H (NS) SARS-CoV-2 RNA (ROBERT) (NEGATIVE) 10/23/21 Range/Units 10:19 WBC (3.0-10.3) x10-3/uL RBC (3.60-5.20) x10(6)uL Hgb (11.4-15.5) g/dL Hct (34.2-48.2) % MCV (76.7-100.5) fL MCH (23.9-33.9) pg MCHC (31.9-34.8) g/dL RDW (12.3-16.5) % Plt Count (151-488) x10(3)uL MPV (7.1-12.4) fL Neut % (Auto) (30.8-76.2) % Lymph % (Auto) (18.4-52.1) % [place] % (Auto) (4.4-15.7) % Eos % (Auto) (0.6-8.1) % Baso % (Auto) (0.2-1.5) % Neut # (Auto) (1.5-6.3) x10-3/uL Lymph # (Auto) (1.0-4.4) x10-3/uL [place] # (Auto) (0.3-1.0) x10-3/uL Eos # (Auto) (0.0-0.8) x10-3/uL Baso # (Auto) (0.0-0.1) x10-3/uL Sodium (135-145) mmol/L Potassium (3.5-5.3) mmol/L Chloride (100-110) mmol/L Carbon Dioxide (21-32) mmol/L BUN (7-18) mg/dL Creatinine (0.55-1.02) mg/dL Est Cr Clr Drug Dosing Estimated GFR (MDRD) (>60) BUN/Creatinine Ratio (9-20) Glucose (80-116) mg/dL Calcium (8.6-10.2) mg/dL Magnesium (1.8-2.5) mg/dL Total Bilirubin (0.1-1.3) mg/dL AST (5-25) IU/L ALT (12-36) U/L Alkaline Phosphatase (56-112) IU/L Total Protein (6.0-8.0) g/dL Albumin (3.2-4.6) g/dL Globulin g/dL Albumin/Globulin Ratio Urine Color (YELLOW) Urine Appearance (CLEAR) Urine pH (5.0-6.5) Ur Specific [place] (1.010-1.025) Urine Protein (NEGATIVE) mg/dL Urine Glucose (UA) (NORMAL) mg/dL Urine Ketones (NEGATIVE) mg/dL Urine Occult Blood (NEGATIVE) Urine Nitrite (NEGATIVE) Urine Bilirubin (NEGATIVE) Urine Urobilinogen (NEGATIVE) mg/dL Ur Leukocyte Esterase (NEGATIVE) Urine RBC (0-5) Urine WBC (0-5) Ur Squamous Epith Cells (NS,R,O) Urine Bacteria (NS) SARS-CoV-2 RNA (ROBERT) Positive H (NEGATIVE) Meds: Medications Discontinued Medications Generic Name Dose Route Start Last Admin Trade Name Freq PRN Reason Stop Dose Admin Lactated Ringer's 1,000 mls @ 999 mls/hr 10/23/21 11:11 Ringers, Lactated IV 10/23/21 12:11 BOLUS ONE Departure - Departure Time of Disposition: 13:35 Disposition: Refer to Observation Condition: Fair Clinical Impression: COVID, Acute kidney injury - Discharge Information *PRESCRIPTION DRUG MONITORING PROGRAM REVIEWED*: Not Applicable *COPY OF PRESCRIPTION DRUG MONITORING REPORT IN PATIENT GILMAR: Not Applicable Referrals: Lilia Burrows NP [Primary Care Provider] - Forms: ED Department Discharge - My Orders Last 24 Hours: My Active Orders 10/23/21 09:27 CXR [Chest 2V] [CR] Stat - Assessment/Plan Last 24 Hours: My Active Orders 10/23/21 09:27 CXR [Chest 2V] [CR] Stat
[2021-10-23] MEDS ORDERED: Lactated Ringers 1,000 ML IV ONE (11:11)
--- NOTE | 2021-10-23 13:16 | PCM.SN.2 ---
- Free Text/Narrative Note: [facility] Date: 10/23/2021 Time: 1204 to 1231 DX: POSSIBLE COVID needing Fluids and possible Remdesivir Infusion and Poor Peripheral Venous Access RX: Obtain Peripheral Vascular Access I was called by the ED physician about this patient. Upon arrival, the ENTRY LEVEL TRUCK DRIVER had tried without success. I tried her left hand with success but the vein ruptured when i flushed it. I found a vein in her right middle ACF area and prepped it with Chlora-Prep which dried. Using a BD Insyte AutoGuard BC Winged 22 Ga. X 1.00 In. Catheter, I inserted it times 1 attempt without complications and advanced it. I flushed it with 10 ml's of Normal Saline and applied an Op-Site dressing. I used proper COVID Possible precautions. Yoni Garcia CRNA, A
--- NOTE | 2021-10-23 16:09 | PCM.HP.2 ---
H&P History of Present Illness - General Date of Service: 10/23/21 Admit Problem/Dx: Admission Diagnosis/Problem Admission Diagnosis/Problem Weakness Source of Information: Patient, Family History Limitations: Reports: No Limitations - History of Present Illness Initial Comments - Free Text/Narative: This is a 80-year-old female patient that came to the emergency room for pr ofound weakness. She lives at [facility] and fell and was found on the floor today. She is very weak and brought in. She was seen x2 this last week at walk-in clinic and was checked for UTI which she commonly has it was negative. The doctor thought she is at problems with polypharmacy. She also is in transition for primary care. And she was out of her Ativan. She did just get it refilled. They thought maybe some of her symptoms were withdrawal. She is basically felt weak all over. She denies fevers, chills. Starting to have a cough today that is productive. She does not have any shortness of breath. The daughter says she is wheezing. She denies loss of taste or smell, fevers, chills. She does have some chronic rhinorrhea that has not changed. No sore throat. She is not immunized. He was found to have Covid and acute kidney injury. - Related Data Allergies/Adverse Reactions: Allergies Allergy/AdvReac Type Severity Reaction Status Date / Time No Known Allergies Allergy Verified 02/24/19 09:02 Home Medications: Home Meds Cholestyramine (With Sugar) [Cholestyramine Powder] 1 scoop PO BID 02/16/18 [History] LORazepam 0.5 mg PO BID PRN 02/16/18 [History] Levothyroxine 112 mcg PO DAILY 02/16/18 [History] [place] Carbonate 300 mg PO BEDTIME 02/16/18 [History] Potassium Chloride 10 meq PO DAILY 02/16/18 [History] Alendronate Sodium 70 mg PO WE 10/20/18 [History] Anastrozole [Arimidex] 1 mg PO DAILY 11/07/19 [History] Calcium Carbonate/Vitamin D3 [Caltrate 600+D 1500 MG-400 Units] 1 tab PO BID 11/07/19 [History] Diphenoxylate HCl/Atropine [Lomotil] 1 tab PO DAILY PRN 11/07/19 [History] Enalapril Maleate 20 mg PO DAILY 11/07/19 [History] Multivit-Min/FA/Lycopen/Lutein [Certavite Senior Tablet] 1 tab PO DAILY 11/07/19 [History] Phytonadione [Vitamin K] 100 mcg PO DAILY 11/07/19 [History] QUEtiapine Fumarate [Quetiapine Fumarate] 100 mg PO BEDTIME 11/07/19 [History] amLODIPine [Norvasc] 5 mg PO DAILY #30 tab 11/07/19 [Rx] Clobetasol [Clobetasol Propionate 0.05%] 1 applic TOP BID 10/23/21 [History] Fexofenadine [Mihaela] 180 mg PO DAILY PRN 10/23/21 [History] Fluticasone Propionate [Flonase] 2 spray DEMARCUS DAILY 10/23/21 [History] Propranolol HCl [Inderal LA] 80 mg PO DAILY 10/23/21 [History] Warfarin Sodium [Jantoven] 0 mg PO MO 10/23/21 [History] Past Medical History Cardiovascular History: Reports: Heart Failure, High Cholesterol, Hypertension, Other (See Below) (Hyperlipidemia) 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 - Past Surgical History HEENT Surgical History: Reports: Tonsillectomy GI Surgical History: Reports: Cholecystectomy Female Surgical History: Reports: Section, Mastectomy (Bilateral) Oncologic Surgical History: Reports: Mastectomy Other Oncologic Surgeries/Procedures: Right mastectomy 18 years ago. May need left breast surgery for discovery of lumps. Social & Family History - Family History Family Medical History: No Pertinent Family History - Caffeine Use Caffeine Use: Reports: Coffee, Soda - Living Situation & Occupation Living situation: Reports: Assisted Living Occupation: Retired H&P Review of Systems - Review of Systems: Review Of Systems: See Below General: Reports: Weakness, Decreased Appetite. Denies: Chills HEENT: Reports: Sinus Congestion Pulmonary: Reports: Wheezing, Cough, Sputum. Denies: Shortness of Breath Cardiovascular: Reports: No Symptoms Gastrointestinal: Reports: No Symptoms Genitourinary: Reports: No Symptoms Musculoskeletal: Reports: No Symptoms Skin: Reports: Rash (History of physis.) Psychiatric: Reports: No Symptoms Neurological: Reports: No Symptoms Hematologic/Lymphatic: Reports: No Symptoms Immunologic: Reports: No Symptoms Exam - Exam Exam: See Below - Vital Signs Vital Signs: Last Vital Signs Temp 98 F 10/23/21 09:00 Pulse 91 10/23/21 09:00 Resp 18 10/23/21 09:00 BP 178/88 H 10/23/21 09:00 Pulse Ox 90 L 10/23/21 09:00 Weight: 150 lb - Exam General: Alert, Oriented, Cooperative HEENT: PERRLA, Hearing Intact, Posterior Pharynx Clear, TMs Clear Neck: Supple, Trachea Midline Lungs: Clear to Auscultation, Normal Respiratory Effort. No: Crackles, Rales, Rhonchi, Wheezing Cardiovascular: Regular Rate, Regular Rhythm, Normal S1, Normal S2. No: Systolic Murmur, Diastolic Murmur GI/Abdominal Exam: Normal Bowel Sounds, Soft, Non-Tender, No Distention Back Exam: Normal Inspection Extremities: Pedal Edema (Very mild bilateral ankles) Skin: Warm, Rash Neuro Extensive - Mental Status: Alert, Oriented x3, Normal Mood/Affect Psychiatric: Alert, Normal Affect, Normal Mood - Patient Data Lab Results Last 24 hrs: Laboratory Results - last 24 hr 10/23/21 10/23/21 10/23/21 Range/Units 09:45 09:45 10:19 WBC 7.3 (3.0-10.3) x10-3/uL RBC 3.92 (3.60-5.20) x10(6)uL Hgb 12.7 (11.4-15.5) g/dL Hct 38.4 (34.2-48.2) % MCV 98.0 (76.7-100.5) fL MCH 32.5 (23.9-33.9) pg MCHC 33.1 (31.9-34.8) g/dL RDW 13.7 (12.3-16.5) % Plt Count 257 (151-488) x10(3)uL MPV 6.9 L (7.1-12.4) fL Neut % (Auto) 76.0 (30.8-76.2) % Lymph % (Auto) 17.7 L (18.4-52.1) % Crisp % (Auto) 5.4 (4.4-15.7) % Eos % (Auto) 0.5 L (0.6-8.1) % Baso % (Auto) 0.4 (0.2-1.5) % Neut # (Auto) 5.5 (1.5-6.3) x10-3/uL Lymph # (Auto) 1.3 (1.0-4.4) x10-3/uL Crisp # (Auto) 0.4 (0.3-1.0) x10-3/uL Eos # (Auto) 0.0 (0.0-0.8) x10-3/uL Baso # (Auto) 0.0 (0.0-0.1) x10-3/uL Sodium 138 (135-145) mmol/L Potassium 3.9 (3.5-5.3) mmol/L Chloride 104 (100-110) mmol/L Carbon Dioxide 26 (21-32) mmol/L BUN 13 (7-18) mg/dL Creatinine 1.3 H (0.55-1.02) mg/dL Est Cr Clr Drug Dosing TNP Estimated GFR (MDRD) 40 L (>60) BUN/Creatinine Ratio 10.0 (9-20) Glucose 121 H (80-116) mg/dL Calcium 10.0 (8.6-10.2) mg/dL Magnesium 2.0 (1.8-2.5) mg/dL Total Bilirubin 0.3 (0.1-1.3) mg/dL AST 11 (5-25) IU/L ALT 26 D (12-36) U/L Alkaline Phosphatase 90 (56-112) IU/L Total Protein 7.0 (6.0-8.0) g/dL Albumin 3.0 L (3.2-4.6) g/dL Globulin 4.0 g/dL Albumin/Globulin Ratio 0.8 Urine Color Yellow (YELLOW) Urine Appearance Clear (CLEAR) Urine pH 5.0 (5.0-6.5) Ur Specific [place] 1.010 (1.010-1.025) Urine Protein Negative (NEGATIVE) mg/dL Urine Glucose (UA) Normal (NORMAL) mg/dL Urine Ketones Negative (NEGATIVE) mg/dL Urine Occult Blood Negative (NEGATIVE) Urine Nitrite Negative (NEGATIVE) Urine Bilirubin Negative (NEGATIVE) Urine Urobilinogen Normal (NEGATIVE) mg/dL Ur Leukocyte Esterase Negative (NEGATIVE) Urine RBC 0-5 (0-5) Urine WBC 0-5 (0-5) Ur Squamous Epith Cells Few H (NS,R,O) Urine Bacteria Occasional H (NS) SARS-CoV-2 RNA (ROBERT) (NEGATIVE) 10/23/21 Range/Units 10:19 WBC (3.0-10.3) x10-3/uL RBC (3.60-5.20) x10(6)uL Hgb (11.4-15.5) g/dL Hct (34.2-48.2) % MCV (76.7-100.5) fL MCH (23.9-33.9) pg MCHC (31.9-34.8) g/dL RDW (12.3-16.5) % Plt Count (151-488) x10(3)uL MPV (7.1-12.4) fL Neut % (Auto) (30.8-76.2) % Lymph % (Auto) (18.4-52.1) % Crisp % (Auto) (4.4-15.7) % Eos % (Auto) (0.6-8.1) % Baso % (Auto) (0.2-1.5) % Neut # (Auto) (1.5-6.3) x10-3/uL Lymph # (Auto) (1.0-4.4) x10-3/uL Crisp # (Auto) (0.3-1.0) x10-3/uL Eos # (Auto) (0.0-0.8) x10-3/uL Baso # (Auto) (0.0-0.1) x10-3/uL Sodium (135-145) mmol/L Potassium (3.5-5.3) mmol/L Chloride (100-110) mmol/L Carbon Dioxide (21-32) mmol/L BUN (7-18) mg/dL Creatinine (0.55-1.02) mg/dL Est Cr Clr Drug Dosing Estimated GFR (MDRD) (>60) BUN/Creatinine Ratio (9-20) Glucose (80-116) mg/dL Calcium (8.6-10.2) mg/dL Magnesium (1.8-2.5) mg/dL Total Bilirubin (0.1-1.3) mg/dL AST (5-25) IU/L ALT (12-36) U/L Alkaline Phosphatase (56-112) IU/L Total Protein (6.0-8.0) g/dL Albumin (3.2-4.6) g/dL Globulin g/dL Albumin/Globulin Ratio Urine Color (YELLOW) Urine Appearance (CLEAR) Urine pH (5.0-6.5) Ur Specific [place] (1.010-1.025) Urine Protein (NEGATIVE) mg/dL Urine Glucose (UA) (NORMAL) mg/dL Urine Ketones (NEGATIVE) mg/dL Urine Occult Blood (NEGATIVE) Urine Nitrite (NEGATIVE) Urine Bilirubin (NEGATIVE) Urine Urobilinogen (NEGATIVE) mg/dL Ur Leukocyte Esterase (NEGATIVE) Urine RBC (0-5) Urine WBC (0-5) Ur Squamous Epith Cells (NS,R,O) Urine Bacteria (NS) SARS-CoV-2 RNA (ROBERT) Positive H (NEGATIVE) Result Diagrams: 10/23/21 09:45 10/23/21 09:45 Imaging Impressions Last 24 hrs: Covid positive Chest x-ray-poor inspiration and she is kyphotic so very difficult to see. Cannot rule out little infiltrate. Wait for radiology interpretation. Sepsis Event Note - Evaluation Sepsis Screening Result: No Definite Risk - Focused Exam Vital Signs: Vital Signs Temp Pulse Resp BP Pulse Ox 10/23/21 09:00 98 F 91 18 178/88 H 90 L - Problem List (1) Palliative care status SNOMED Code(s): 988126948 ICD Code: Z51.5 - ENCOUNTER FOR PALLIATIVE CARE Status: Acute Current Visit: Yes (2) Hypoxia SNOMED Code(s): 340056577 ICD Code: R09.02 - HYPOXEMIA Status: Acute Current Visit: Yes (3) Acute kidney injury SNOMED Code(s): 40415366, 97885684 ICD Code: N17.9 - ACUTE KIDNEY FAILURE, UNSPECIFIED Status: Acute Current Visit: Yes (4) COVID SNOMED Code(s): 145675583 ICD Code: U07.1 - COVID-19 Status: Acute Current Visit: Yes (5) Congestive heart failure SNOMED Code(s): 98159455 ICD Code: I50.9 - HEART FAILURE, UNSPECIFIED Status: Acute Current Visit: No Qualifiers: Heart failure type: diastolic Heart failure chronicity: chronic Qualified Code(s): I50.32 - Chronic diastolic (congestive) heart failure (6) Fall SNOMED Code(s): 9999147, 054111086 ICD Code: W19.XXXA - UNSPECIFIED FALL, INITIAL ENCOUNTER Status: Acute Current Visit: No Qualifiers: Encounter type: initial encounter Qualified Code(s): W19.XXXA - Unspecified fall, initial encounter (7) Hypertension SNOMED Code(s): 85900685 ICD Code: I10 - ESSENTIAL (PRIMARY) HYPERTENSION Status: Acute Current Visit: No Qualifiers: Hypertension type: renovascular hypertension Qualified Code(s): I15.0 - Renovascular hypertension (8) Hypothyroidism SNOMED Code(s): 20175373 ICD Code: E03.9 - HYPOTHYROIDISM, UNSPECIFIED Status: Acute Current Visit: No Qualifiers: Hypothyroidism type: acquired Qualified Code(s): E03.9 - Hypothyroidism, unspecified Problem List Initiated/Reviewed/Updated: Yes Orders Last 24hrs: Active Orders 24 hr Category Date Time Status Patient Status Manage Transfer [TRANSFER] Routine ADT 10/23/21 14:20 Active Patient Status [ADT] Routine ADT 10/23/21 14:27 Active Antiembolic Devices [RC] .Routine Care 10/23/21 14:28 Active Pulse Oximetry [RC] PRN Care 10/23/21 14:27 Active VTE/DVT Education [RC] Click to Edit Care 10/23/21 14:28 Active Vital Signs [RC] Q4H Care 10/23/21 14:27 Active Regular Diet [DIET] Diet 10/23/21 Dinner Ordered CXR [Chest 2V] [CR] Stat Exams 10/23/21 09:27 Taken DVT/VTE Prophylaxis Reflex [OM.PC] Per Unit Routine Oth 10/23/21 14:27 Ordered Resuscitation Status Routine Resus Stat 10/23/21 14:27 Ordered Assessment/Plan Comment:: 1. The ER doc admitted her for observation. But I am going to place her on rems then appears home and put her inpatient. 2. Check D-dimer, CRP 2. Regular diet, 3. Isolation 4. Dexamethasone 5. Continue her warfarin for anticoagulation. Pharmacy to manage 6. Up with assist. 7. PT/OT eval 8. Continue oral meds. 9. Oxygen to keep her saturations greater than 90%. - Mortality Measure Prognosis:: Good
[2021-10-23] MEDS ORDERED: REMDESIVIR 200 MG in Sodium Chloride 0.9% 250 ML IV ONE (16:12)
[2021-10-23] MEDS ORDERED: Acetaminophen 325 MG Tab PO PRN (16:12)
[2021-10-23] MEDS ORDERED: Dexamethasone 4 MG Tab PO SCH (16:15)
[2021-10-23] MEDS ORDERED: LORazepam 0.5 MG Tab PO PRN (16:17)
[2021-10-23] MEDS ORDERED: Atropine/Diphenoxylate 0.025-2.5 MG Tab PO PRN (16:17)
[2021-10-23] MEDS: Lactated Ringers 1,000 ML IV SCH (17:43)
[2021-10-23 20:23] LABS: BASE EXCESS VENOUS,POC -1 mmol/L (-2 - 3+); PCO2 VENOUS,POC 61 mmHg (41-51); PH VENOUS,POC 7.27 pH Units (7.32-7.43)
[2021-10-23] MEDS ORDERED: CLOBETASOL 0.05% TOP SCH (21:00)
[2021-10-23] MEDS ORDERED: Warfarin 5 MG Tab PO ONE (21:15)
[2021-10-23] MEDS: QUEtiapine 100 MG Tab PO SCH (21:22)
[2021-10-23] MEDS: Calcium Carbonate 500 MG Tablet PO SCH (21:22)
[2021-10-23] MEDS: Cholestyramine/Sucrose Powder 4 GM Packet PO SCH (21:22)
[2021-10-23] MEDS: Lithium Carbonate 300 MG Cap PO SCH (21:23)
[2021-10-24] MEDS: Lactated Ringers 1,000 ML IV SCH (05:45)
[2021-10-24] MEDS ORDERED: Levothyroxine 112 MCG Tab PO SCH (07:00)
[2021-10-24] MEDS ORDERED: Warfarin Sliding Scale PO ONE (08:00)
[2021-10-24] MEDS: Cholestyramine/Sucrose Powder 4 GM Packet PO SCH ×2 (08:19→20:20)
[2021-10-24] MEDS: Phytonadione 100 MCG Tab PO SCH (08:21)
[2021-10-24] MEDS: Dexamethasone 2 MG Tab PO SCH (08:21)
[2021-10-24] MEDS: Multivitamins with Iron/Calcium/Folic Acid/Minerals Tab PO SCH (08:21)
[2021-10-24] MEDS: Calcium Carbonate 500 MG Tablet PO SCH ×2 (08:21→20:23)
[2021-10-24] MEDS: Anastrozole 1 MG Tab PO SCH (08:21)
[2021-10-24] MEDS: amLODIPine 5 MG Tab PO SCH (08:22)
[2021-10-24] MEDS: Fluticasone Propionate Nasal Spray 16 GM Bottle NAS SCH (08:22)
[2021-10-24] MEDS: Potassium Chloride 10 MEQ Tab.ER PO SCH (08:22)
[2021-10-24] MEDS: Clobetasol 0.05% Crm 15 GM Tube TOP SCH ×2 (08:25→20:22)
--- NOTE | 2021-10-24 08:28 | PCM.PN ---
- General Info Date of Service: 10/24/21 Admission Dx/Problem (Free Text): Patient states she feels a little weak and off balance. But she denies fevers, chills, chest pain, shortness of breath, nausea, vomiting, body aches or loss of taste or smell. - Patient Data Vitals - Most Recent: Last Vital Signs Temp 98.9 F 10/24/21 04:00 Pulse 63 10/24/21 04:00 Resp 18 10/24/21 04:00 BP 136/74 10/24/21 08:22 Pulse Ox 95 10/24/21 04:00 Weight - Most Recent: 150 lb 14.4 oz I&O - Last 24 Hours: Intake & Output 10/23/21 10/24/21 10/24/21 22:59 06:59 14:59 Intake Total 1836 583 Balance 1836 583 Lab Results Last 24 Hours: Laboratory Results - last 24 hr 10/23/21 10/23/21 10/23/21 Range/Units 09:45 09:45 09:45 WBC 7.3 (3.0-10.3) x10-3/uL RBC 3.92 (3.60-5.20) x10(6)uL Hgb 12.7 (11.4-15.5) g/dL Hct 38.4 (34.2-48.2) % MCV 98.0 (76.7-100.5) fL MCH 32.5 (23.9-33.9) pg MCHC 33.1 (31.9-34.8) g/dL RDW 13.7 (12.3-16.5) % Plt Count 257 (151-488) x10(3)uL MPV 6.9 L (7.1-12.4) fL Neut % (Auto) 76.0 (30.8-76.2) % Lymph % (Auto) 17.7 L (18.4-52.1) % Mcminn % (Auto) 5.4 (4.4-15.7) % Eos % (Auto) 0.5 L (0.6-8.1) % Baso % (Auto) 0.4 (0.2-1.5) % Neut # (Auto) 5.5 (1.5-6.3) x10-3/uL Lymph # (Auto) 1.3 (1.0-4.4) x10-3/uL [place] # (Auto) 0.4 (0.3-1.0) x10-3/uL Eos # (Auto) 0.0 (0.0-0.8) x10-3/uL Baso # (Auto) 0.0 (0.0-0.1) x10-3/uL PT (9.0-11.1) sec INR (1.00-1.24) D-Dimer, Quantitative (0.0-0.59) mg/LFEU POC VBG pH (7.32-7.43) pH Units POC VBG pCO2 (41-51) mmHg POC VBG HCO3 (22-29) mmol/L VBG Base Excess (-2 - 3+) mmol/L O2 Delivery Device Sodium 138 (135-145) mmol/L Potassium 3.9 (3.5-5.3) mmol/L Chloride 104 (100-110) mmol/L Carbon Dioxide 26 (21-32) mmol/L BUN 13 (7-18) mg/dL Creatinine 1.3 H (0.55-1.02) mg/dL Est Cr Clr Drug Dosing TNP Estimated GFR (MDRD) 40 L (>60) BUN/Creatinine Ratio 10.0 (9-20) Glucose 121 H (80-116) mg/dL Lactic Acid (0.4-2.0) mmol/L Calcium 10.0 (8.6-10.2) mg/dL Magnesium 2.0 (1.8-2.5) mg/dL Total Bilirubin 0.3 0.3 (0.1-1.3) mg/dL Direct Bilirubin 0.13 (0.10-0.20) mg/dL AST 11 12 (5-25) IU/L ALT 26 D 27 (12-36) U/L Alkaline Phosphatase 90 91 (56-112) IU/L Lactate Dehydrogenase 160 (81-234) U/L C-Reactive Protein (0.5-0.9) mg/dL Total Protein 7.0 7.1 (6.0-8.0) g/dL Albumin 3.0 L 3.1 L (3.2-4.6) g/dL Globulin 4.0 g/dL Albumin/Globulin Ratio 0.8 Urine Color (YELLOW) Urine Appearance (CLEAR) Urine pH (5.0-6.5) Ur Specific Bow (1.010-1.025) Urine Protein (NEGATIVE) mg/dL Urine Glucose (UA) (NORMAL) mg/dL Urine Ketones (NEGATIVE) mg/dL Urine Occult Blood (NEGATIVE) Urine Nitrite (NEGATIVE) Urine Bilirubin (NEGATIVE) Urine Urobilinogen (NEGATIVE) mg/dL Ur Leukocyte Esterase (NEGATIVE) Urine RBC (0-5) Urine WBC (0-5) Ur Squamous Epith Cells (NS,R,O) Urine Bacteria (NS) SARS-CoV-2 RNA (ROBERT) (NEGATIVE) 10/23/21 10/23/21 10/23/21 Range/Units 10:19 10:19 19:55 WBC (3.0-10.3) x10-3/uL RBC (3.60-5.20) x10(6)uL Hgb (11.4-15.5) g/dL Hct (34.2-48.2) % MCV (76.7-100.5) fL MCH (23.9-33.9) pg MCHC (31.9-34.8) g/dL RDW (12.3-16.5) % Plt Count (151-488) x10(3)uL MPV (7.1-12.4) fL Neut % (Auto) (30.8-76.2) % Lymph % (Auto) (18.4-52.1) % Mcminn % (Auto) (4.4-15.7) % Eos % (Auto) (0.6-8.1) % Baso % (Auto) (0.2-1.5) % Neut # (Auto) (1.5-6.3) x10-3/uL Lymph # (Auto) (1.0-4.4) x10-3/uL Mcminn # (Auto) (0.3-1.0) x10-3/uL Eos # (Auto) (0.0-0.8) x10-3/uL Baso # (Auto) (0.0-0.1) x10-3/uL PT 24.8 H (9.0-11.1) sec INR 2.44 H (1.00-1.24) D-Dimer, Quantitative 0.28 (0.0-0.59) mg/LFEU POC VBG pH (7.32-7.43) pH Units POC VBG pCO2 (41-51) mmHg POC VBG HCO3 (22-29) mmol/L VBG Base Excess (-2 - 3+) mmol/L O2 Delivery Device Sodium (135-145) mmol/L Potassium (3.5-5.3) mmol/L Chloride (100-110) mmol/L Carbon Dioxide (21-32) mmol/L BUN (7-18) mg/dL Creatinine (0.55-1.02) mg/dL Est Cr Clr Drug Dosing Estimated GFR (MDRD) (>60) BUN/Creatinine Ratio (9-20) Glucose (80-116) mg/dL Lactic Acid (0.4-2.0) mmol/L Calcium (8.6-10.2) mg/dL Magnesium (1.8-2.5) mg/dL Total Bilirubin (0.1-1.3) mg/dL Direct Bilirubin (0.10-0.20) mg/dL AST (5-25) IU/L ALT (12-36) U/L Alkaline Phosphatase (56-112) IU/L Lactate Dehydrogenase (81-234) U/L C-Reactive Protein (0.5-0.9) mg/dL Total Protein (6.0-8.0) g/dL Albumin (3.2-4.6) g/dL Globulin g/dL Albumin/Globulin Ratio Urine Color Yellow (YELLOW) Urine Appearance Clear (CLEAR) Urine pH 5.0 (5.0-6.5) Ur Specific Bow 1.010 (1.010-1.025) Urine Protein Negative (NEGATIVE) mg/dL Urine Glucose (UA) Normal (NORMAL) mg/dL Urine Ketones Negative (NEGATIVE) mg/dL Urine Occult Blood Negative (NEGATIVE) Urine Nitrite Negative (NEGATIVE) Urine Bilirubin Negative (NEGATIVE) Urine Urobilinogen Normal (NEGATIVE) mg/dL Ur Leukocyte Esterase Negative (NEGATIVE) Urine RBC 0-5 (0-5) Urine WBC 0-5 (0-5) Ur Squamous Epith Cells Few H (NS,R,O) Urine Bacteria Occasional H (NS) SARS-CoV-2 RNA (ROBERT) Positive H (NEGATIVE) 10/23/21 10/23/21 10/24/21 Range/Units 19:55 19:55 06:55 WBC 5.4 (3.0-10.3) x10-3/uL RBC 3.98 (3.60-5.20) x10(6)uL Hgb 12.9 (11.4-15.5) g/dL Hct 39.0 (34.2-48.2) % MCV 98.1 (76.7-100.5) fL MCH 32.4 (23.9-33.9) pg MCHC 33.0 (31.9-34.8) g/dL RDW 13.6 (12.3-16.5) % Plt Count 260 (151-488) x10(3)uL MPV 7.2 (7.1-12.4) fL Neut % (Auto) 80.9 H (30.8-76.2) % Lymph % (Auto) 14.2 L (18.4-52.1) % Mcminn % (Auto) 4.8 (4.4-15.7) % Eos % (Auto) 0.0 L (0.6-8.1) % Baso % (Auto) 0.1 L (0.2-1.5) % Neut # (Auto) 4.4 (1.5-6.3) x10-3/uL Lymph # (Auto) 0.8 L (1.0-4.4) x10-3/uL Mcminn # (Auto) 0.3 (0.3-1.0) x10-3/uL Eos # (Auto) 0.0 (0.0-0.8) x10-3/uL Baso # (Auto) 0.0 (0.0-0.1) x10-3/uL PT (9.0-11.1) sec INR (1.00-1.24) D-Dimer, Quantitative (0.0-0.59) mg/LFEU POC VBG pH 7.27 L (7.32-7.43) pH Units POC VBG pCO2 61 H (41-51) mmHg POC VBG HCO3 28 (22-29) mmol/L VBG Base Excess -1 (-2 - 3+) mmol/L O2 Delivery Device Nasal cannula Sodium (135-145) mmol/L Potassium (3.5-5.3) mmol/L Chloride (100-110) mmol/L Carbon Dioxide (21-32) mmol/L BUN (7-18) mg/dL Creatinine (0.55-1.02) mg/dL Est Cr Clr Drug Dosing Estimated GFR (MDRD) (>60) BUN/Creatinine Ratio (9-20) Glucose (80-116) mg/dL Lactic Acid 1.0 (0.4-2.0) mmol/L Calcium (8.6-10.2) mg/dL Magnesium (1.8-2.5) mg/dL Total Bilirubin (0.1-1.3) mg/dL Direct Bilirubin (0.10-0.20) mg/dL AST (5-25) IU/L ALT (12-36) U/L Alkaline Phosphatase (56-112) IU/L Lactate Dehydrogenase (81-234) U/L C-Reactive Protein (0.5-0.9) mg/dL Total Protein (6.0-8.0) g/dL Albumin (3.2-4.6) g/dL Globulin g/dL Albumin/Globulin Ratio Urine Color (YELLOW) Urine Appearance (CLEAR) Urine pH (5.0-6.5) Ur Specific Bow (1.010-1.025) Urine Protein (NEGATIVE) mg/dL Urine Glucose (UA) (NORMAL) mg/dL Urine Ketones (NEGATIVE) mg/dL Urine Occult Blood (NEGATIVE) Urine Nitrite (NEGATIVE) Urine Bilirubin (NEGATIVE) Urine Urobilinogen (NEGATIVE) mg/dL Ur Leukocyte Esterase (NEGATIVE) Urine RBC (0-5) Urine WBC (0-5) Ur Squamous Epith Cells (NS,R,O) Urine Bacteria (NS) SARS-CoV-2 RNA (ROBERT) (NEGATIVE) 10/24/21 10/24/21 10/24/21 Range/Units 06:55 06:55 06:55 WBC (3.0-10.3) x10-3/uL RBC (3.60-5.20) x10(6)uL Hgb (11.4-15.5) g/dL Hct (34.2-48.2) % MCV (76.7-100.5) fL MCH (23.9-33.9) pg MCHC (31.9-34.8) g/dL RDW (12.3-16.5) % Plt Count (151-488) x10(3)uL MPV (7.1-12.4) fL Neut % (Auto) (30.8-76.2) % Lymph % (Auto) (18.4-52.1) % Mcminn % (Auto) (4.4-15.7) % Eos % (Auto) (0.6-8.1) % Baso % (Auto) (0.2-1.5) % Neut # (Auto) (1.5-6.3) x10-3/uL Lymph # (Auto) (1.0-4.4) x10-3/uL Mcminn # (Auto) (0.3-1.0) x10-3/uL Eos # (Auto) (0.0-0.8) x10-3/uL Baso # (Auto) (0.0-0.1) x10-3/uL PT 24.6 H (9.0-11.1) sec INR 2.42 H (1.00-1.24) D-Dimer, Quantitative (0.0-0.59) mg/LFEU POC VBG pH (7.32-7.43) pH Units POC VBG pCO2 (41-51) mmHg POC VBG HCO3 (22-29) mmol/L VBG Base Excess (-2 - 3+) mmol/L O2 Delivery Device Sodium 140 (135-145) mmol/L Potassium 3.8 (3.5-5.3) mmol/L Chloride 106 (100-110) mmol/L Carbon Dioxide 27 (21-32) mmol/L BUN 11 (7-18) mg/dL Creatinine 1.1 H (0.55-1.02) mg/dL Est Cr Clr Drug Dosing 29.79 Estimated GFR (MDRD) 48 L (>60) BUN/Creatinine Ratio 10.0 (9-20) Glucose 120 H (80-116) mg/dL Lactic Acid (0.4-2.0) mmol/L Calcium 9.2 (8.6-10.2) mg/dL Magnesium (1.8-2.5) mg/dL Total Bilirubin 0.2 (0.1-1.3) mg/dL Direct Bilirubin 0.12 (0.10-0.20) mg/dL AST 10 D (5-25) IU/L ALT 27 (12-36) U/L Alkaline Phosphatase 87 (56-112) IU/L Lactate Dehydrogenase (81-234) U/L C-Reactive Protein 2.6 H* (0.5-0.9) mg/dL Total Protein 6.6 (6.0-8.0) g/dL Albumin 2.8 L (3.2-4.6) g/dL Globulin 3.8 g/dL Albumin/Globulin Ratio 0.7 Urine Color (YELLOW) Urine Appearance (CLEAR) Urine pH (5.0-6.5) Ur Specific Bow (1.010-1.025) Urine Protein (NEGATIVE) mg/dL Urine Glucose (UA) (NORMAL) mg/dL Urine Ketones (NEGATIVE) mg/dL Urine Occult Blood (NEGATIVE) Urine Nitrite (NEGATIVE) Urine Bilirubin (NEGATIVE) Urine Urobilinogen (NEGATIVE) mg/dL Ur Leukocyte Esterase (NEGATIVE) Urine RBC (0-5) Urine WBC (0-5) Ur Squamous Epith Cells (NS,R,O) Urine Bacteria (NS) SARS-CoV-2 RNA (ROBERT) (NEGATIVE) Med Orders - Current: Current Medications Acetaminophen (Acetaminophen 325 Mg Tab) 650 mg PO Q4H PRN PRN Reason: Fever Greater Than 101 Alendronate Sodium (Alendronate 70 Mg Tab) 70 mg PO We@0600 [facility] Amlodipine Besylate (Amlodipine 5 Mg Tab) 5 mg PO DAILY [facility] Last Admin: 10/24/21 08:22 Dose: 5 mg Documented by: Anastrozole (Anastrozole 1 Mg Tab) 1 mg PO DAILY [facility] Last Admin: 10/24/21 08:21 Dose: 1 mg Documented by: Calcium Carbonate/Glycine (Calcium Carbonate 500 Mg Tablet) 500 mg PO BID [facility] Last Admin: 10/24/21 08:21 Dose: 500 mg Documented by: Cholestyramine Resin (Cholestyramine/Sucrose Powder 4 Gm Packet) 4 gm PO BID [facility] Last Admin: 10/24/21 08:19 Dose: 4 gm Documented by: Clobetasol Propionate (Clobetasol 0.05% Crm 15 Gm Tube) 0 gm TOP BID [facility] Dexamethasone (Dexamethasone 2 Mg Tab) 6 mg PO DAILY [facility] Stop: 11/01/21 09:01 Last Admin: 10/24/21 08:21 Dose: 6 mg Documented by: Diphenoxylate HCl/Atropine (Atropine/Diphenoxylate 0.025-2.5 Mg Tab) 1 tab PO DAILY PRN PRN Reason: Diarrhea Enalapril Maleate (Enalapril 10 Mg Tab) 20 mg PO DAILY [facility] Last Admin: 10/24/21 08:21 Dose: 20 mg Documented by: Fexofenadine HCl (Fexofenadine 180 Mg Tab) 180 mg PO DAILY PRN PRN Reason: Allergies Fluticasone Propionate (Fluticasone Propionate Nasal [place] 16 Gm Bottle) 0 gm DEMARCUS DAILY [facility] Last Admin: 10/24/21 08:22 Dose: 2 spray Documented by: Remdesivir 100 mg/ Sodium (Chloride) 100 mls @ 100 mls/hr IV Q24H [facility] Stop: 10/27/21 16:59 Lactated Ringer's (Ringers, Lactated) 1,000 mls @ 100 mls/hr IV ASDIRECTED [facility] Last Admin: 10/24/21 05:45 Dose: 100 mls/hr Documented by: Levothyroxine Sodium (Levothyroxine 125 Mcg Tab) 125 mcg PO DAILY@0700 [facility] Gibbs Carbonate (Gibbs Carbonate 300 Mg Cap) 300 mg PO BEDTIME [facility] Last Admin: 10/23/21 21:23 Dose: 300 mg Documented by: Lorazepam (Lorazepam 0.5 Mg Tab) 0.5 mg PO BID PRN PRN Reason: Anxiety Multivitamins/Minerals (Multivitamins With Iron/Calcium/Folic Acid/Minerals Tab) 1 tab PO DAILY [facility] Last Admin: 10/24/21 08:21 Dose: 1 tab Documented by: Phytonadione (Phytonadione 100 Mcg Tab) 100 mcg PO DAILY [facility] Last Admin: 10/24/21 08:21 Dose: 100 mcg Documented by: Potassium Chloride (Potassium Chloride 10 Meq Tab.Er) 10 meq PO DAILY [facility] Last Admin: 10/24/21 08:22 Dose: 10 meq Documented by: Propranolol HCl (Propranolol 80 Mg Cap.Er) 80 mg PO BEDTIME [facility] Quetiapine Fumarate (Quetiapine 100 Mg Tab) 100 mg PO BEDTIME [facility] Last Admin: 10/23/21 21:22 Dose: 100 mg Documented by: Warfarin Sodium (Warfarin Sliding Scale) 1 each PO ONETIME ONE Stop: 10/24/21 08:01 Discontinued Medications Clobetasol Propionate (Clobetasol 0.05% Crm 45 Gm Tube) 0 gm TOP BID [facility] Last Admin: 10/23/21 21:24 Dose: 1 applic Documented by: Dexamethasone (Dexamethasone 4 Mg Tab) 6 mg PO DAILY [facility] Stop: 11/01/21 09:01 Last Admin: 10/23/21 17:46 Dose: 6 mg Documented by: Lactated Ringer's (Ringers, Lactated) 1,000 mls @ 999 mls/hr IV BOLUS ONE Stop: 10/23/21 12:11 Last Infusion: 10/23/21 12:30 Dose: 125 mls/hr Documented by: Remdesivir 200 mg/ Sodium (Chloride) 250 mls @ 200 mls/hr IV ONETIME ONE Stop: 10/23/21 17:26 Last Admin: 10/23/21 20:16 Dose: 200 mls/hr Documented by: Levothyroxine Sodium (Levothyroxine 112 Mcg Tab) 112 mcg PO DAILY@0700 [facility] Last Admin: 10/24/21 06:05 Dose: 112 mcg Documented by: Warfarin Sodium (Warfarin 5 Mg Tab) 5 mg PO ONETIME ONE Stop: 10/23/21 21:16 Last Admin: 10/23/21 22:14 Dose: 5 mg Documented by: - Exam General: Alert, Oriented, Cooperative Neck: Supple Lungs: Clear to Auscultation, Normal Respiratory Effort. No: Crackles, Rales, Rhonchi Cardiovascular: Regular Rate, Regular Rhythm, No Murmurs Extremities: Pedal Edema (Very mild bilateral) - Patient Data Lab Results Last 24 hrs: Laboratory Results - last 24 hr 10/23/21 10/23/21 10/23/21 Range/Units 09:45 09:45 09:45 WBC 7.3 (3.0-10.3) x10-3/uL RBC 3.92 (3.60-5.20) x10(6)uL Hgb 12.7 (11.4-15.5) g/dL Hct 38.4 (34.2-48.2) % MCV 98.0 (76.7-100.5) fL MCH 32.5 (23.9-33.9) pg MCHC 33.1 (31.9-34.8) g/dL RDW 13.7 (12.3-16.5) % Plt Count 257 (151-488) x10(3)uL MPV 6.9 L (7.1-12.4) fL Neut % (Auto) 76.0 (30.8-76.2) % Lymph % (Auto) 17.7 L (18.4-52.1) % Mcminn % (Auto) 5.4 (4.4-15.7) % Eos % (Auto) 0.5 L (0.6-8.1) % Baso % (Auto) 0.4 (0.2-1.5) % Neut # (Auto) 5.5 (1.5-6.3) x10-3/uL Lymph # (Auto) 1.3 (1.0-4.4) x10-3/uL Mcminn # (Auto) 0.4 (0.3-1.0) x10-3/uL Eos # (Auto) 0.0 (0.0-0.8) x10-3/uL Baso # (Auto) 0.0 (0.0-0.1) x10-3/uL PT (9.0-11.1) sec INR (1.00-1.24) D-Dimer, Quantitative (0.0-0.59) mg/LFEU POC VBG pH (7.32-7.43) pH Units POC VBG pCO2 (41-51) mmHg POC VBG HCO3 (22-29) mmol/L VBG Base Excess (-2 - 3+) mmol/L O2 Delivery Device Sodium 138 (135-145) mmol/L Potassium 3.9 (3.5-5.3) mmol/L Chloride 104 (100-110) mmol/L Carbon Dioxide 26 (21-32) mmol/L BUN 13 (7-18) mg/dL Creatinine 1.3 H (0.55-1.02) mg/dL Est Cr Clr Drug Dosing TNP Estimated GFR (MDRD) 40 L (>60) BUN/Creatinine Ratio 10.0 (9-20) Glucose 121 H (80-116) mg/dL Lactic Acid (0.4-2.0) mmol/L Calcium 10.0 (8.6-10.2) mg/dL Magnesium 2.0 (1.8-2.5) mg/dL Total Bilirubin 0.3 0.3 (0.1-1.3) mg/dL Direct Bilirubin 0.13 (0.10-0.20) mg/dL AST 11 12 (5-25) IU/L ALT 26 D 27 (12-36) U/L Alkaline Phosphatase 90 91 (56-112) IU/L Lactate Dehydrogenase 160 (81-234) U/L C-Reactive Protein (0.5-0.9) mg/dL Total Protein 7.0 7.1 (6.0-8.0) g/dL Albumin 3.0 L 3.1 L (3.2-4.6) g/dL Globulin 4.0 g/dL Albumin/Globulin Ratio 0.8 Urine Color (YELLOW) Urine Appearance (CLEAR) Urine pH (5.0-6.5) Ur Specific Bow (1.010-1.025) Urine Protein (NEGATIVE) mg/dL Urine Glucose (UA) (NORMAL) mg/dL Urine Ketones (NEGATIVE) mg/dL Urine Occult Blood (NEGATIVE) Urine Nitrite (NEGATIVE) Urine Bilirubin (NEGATIVE) Urine Urobilinogen (NEGATIVE) mg/dL Ur Leukocyte Esterase (NEGATIVE) Urine RBC (0-5) Urine WBC (0-5) Ur Squamous Epith Cells (NS,R,O) Urine Bacteria (NS) SARS-CoV-2 RNA (ROBERT) (NEGATIVE) 10/23/21 10/23/21 10/23/21 Range/Units 10:19 10:19 19:55 WBC (3.0-10.3) x10-3/uL RBC (3.60-5.20) x10(6)uL Hgb (11.4-15.5) g/dL Hct (34.2-48.2) % MCV (76.7-100.5) fL MCH (23.9-33.9) pg MCHC (31.9-34.8) g/dL RDW (12.3-16.5) % Plt Count (151-488) x10(3)uL MPV (7.1-12.4) fL Neut % (Auto) (30.8-76.2) % Lymph % (Auto) (18.4-52.1) % Mcminn % (Auto) (4.4-15.7) % Eos % (Auto) (0.6-8.1) % Baso % (Auto) (0.2-1.5) % Neut # (Auto) (1.5-6.3) x10-3/uL Lymph # (Auto) (1.0-4.4) x10-3/uL Mcminn # (Auto) (0.3-1.0) x10-3/uL Eos # (Auto) (0.0-0.8) x10-3/uL Baso # (Auto) (0.0-0.1) x10-3/uL PT 24.8 H (9.0-11.1) sec INR 2.44 H (1.00-1.24) D-Dimer, Quantitative 0.28 (0.0-0.59) mg/LFEU POC VBG pH (7.32-7.43) pH Units POC VBG pCO2 (41-51) mmHg POC VBG HCO3 (22-29) mmol/L VBG Base Excess (-2 - 3+) mmol/L O2 Delivery Device Sodium (135-145) mmol/L Potassium (3.5-5.3) mmol/L Chloride (100-110) mmol/L Carbon Dioxide (21-32) mmol/L BUN (7-18) mg/dL Creatinine (0.55-1.02) mg/dL Est Cr Clr Drug Dosing Estimated GFR (MDRD) (>60) BUN/Creatinine Ratio (9-20) Glucose (80-116) mg/dL Lactic Acid (0.4-2.0) mmol/L Calcium (8.6-10.2) mg/dL Magnesium (1.8-2.5) mg/dL Total Bilirubin (0.1-1.3) mg/dL Direct Bilirubin (0.10-0.20) mg/dL AST (5-25) IU/L ALT (12-36) U/L Alkaline Phosphatase (56-112) IU/L Lactate Dehydrogenase (81-234) U/L C-Reactive Protein (0.5-0.9) mg/dL Total Protein (6.0-8.0) g/dL Albumin (3.2-4.6) g/dL Globulin g/dL Albumin/Globulin Ratio Urine Color Yellow (YELLOW) Urine Appearance Clear (CLEAR) Urine pH 5.0 (5.0-6.5) Ur Specific Bow 1.010 (1.010-1.025) Urine Protein Negative (NEGATIVE) mg/dL Urine Glucose (UA) Normal (NORMAL) mg/dL Urine Ketones Negative (NEGATIVE) mg/dL Urine Occult Blood Negative (NEGATIVE) Urine Nitrite Negative (NEGATIVE) Urine Bilirubin Negative (NEGATIVE) Urine Urobilinogen Normal (NEGATIVE) mg/dL Ur Leukocyte Esterase Negative (NEGATIVE) Urine RBC 0-5 (0-5) Urine WBC 0-5 (0-5) Ur Squamous Epith Cells Few H (NS,R,O) Urine Bacteria Occasional H (NS) SARS-CoV-2 RNA (ROBERT) Positive H (NEGATIVE) 10/23/21 10/23/21 10/24/21 Range/Units 19:55 19:55 06:55 WBC 5.4 (3.0-10.3) x10-3/uL RBC 3.98 (3.60-5.20) x10(6)uL Hgb 12.9 (11.4-15.5) g/dL Hct 39.0 (34.2-48.2) % MCV 98.1 (76.7-100.5) fL MCH 32.4 (23.9-33.9) pg MCHC 33.0 (31.9-34.8) g/dL RDW 13.6 (12.3-16.5) % Plt Count 260 (151-488) x10(3)uL MPV 7.2 (7.1-12.4) fL Neut % (Auto) 80.9 H (30.8-76.2) % Lymph % (Auto) 14.2 L (18.4-52.1) % Mcminn % (Auto) 4.8 (4.4-15.7) % Eos % (Auto) 0.0 L (0.6-8.1) % Baso % (Auto) 0.1 L (0.2-1.5) % Neut # (Auto) 4.4 (1.5-6.3) x10-3/uL Lymph # (Auto) 0.8 L (1.0-4.4) x10-3/uL Mcminn # (Auto) 0.3 (0.3-1.0) x10-3/uL Eos # (Auto) 0.0 (0.0-0.8) x10-3/uL Baso # (Auto) 0.0 (0.0-0.1) x10-3/uL PT (9.0-11.1) sec INR (1.00-1.24) D-Dimer, Quantitative (0.0-0.59) mg/LFEU POC VBG pH 7.27 L (7.32-7.43) pH Units POC VBG pCO2 61 H (41-51) mmHg POC VBG HCO3 28 (22-29) mmol/L VBG Base Excess -1 (-2 - 3+) mmol/L O2 Delivery Device Nasal cannula Sodium (135-145) mmol/L Potassium (3.5-5.3) mmol/L Chloride (100-110) mmol/L Carbon Dioxide (21-32) mmol/L BUN (7-18) mg/dL Creatinine (0.55-1.02) mg/dL Est Cr Clr Drug Dosing Estimated GFR (MDRD) (>60) BUN/Creatinine Ratio (9-20) Glucose (80-116) mg/dL Lactic Acid 1.0 (0.4-2.0) mmol/L Calcium (8.6-10.2) mg/dL Magnesium (1.8-2.5) mg/dL Total Bilirubin (0.1-1.3) mg/dL Direct Bilirubin (0.10-0.20) mg/dL AST (5-25) IU/L ALT (12-36) U/L Alkaline Phosphatase (56-112) IU/L Lactate Dehydrogenase (81-234) U/L C-Reactive Protein (0.5-0.9) mg/dL Total Protein (6.0-8.0) g/dL Albumin (3.2-4.6) g/dL Globulin g/dL Albumin/Globulin Ratio Urine Color (YELLOW) Urine Appearance (CLEAR) Urine pH (5.0-6.5) Ur Specific Bow (1.010-1.025) Urine Protein (NEGATIVE) mg/dL Urine Glucose (UA) (NORMAL) mg/dL Urine Ketones (NEGATIVE) mg/dL Urine Occult Blood (NEGATIVE) Urine Nitrite (NEGATIVE) Urine Bilirubin (NEGATIVE) Urine Urobilinogen (NEGATIVE) mg/dL Ur Leukocyte Esterase (NEGATIVE) Urine RBC (0-5) Urine WBC (0-5) Ur Squamous Epith Cells (NS,R,O) Urine Bacteria (NS) SARS-CoV-2 RNA (ROBERT) (NEGATIVE) 10/24/21 10/24/21 10/24/21 Range/Units 06:55 06:55 06:55 WBC (3.0-10.3) x10-3/uL RBC (3.60-5.20) x10(6)uL Hgb (11.4-15.5) g/dL Hct (34.2-48.2) % MCV (76.7-100.5) fL MCH (23.9-33.9) pg MCHC (31.9-34.8) g/dL RDW (12.3-16.5) % Plt Count (151-488) x10(3)uL MPV (7.1-12.4) fL Neut % (Auto) (30.8-76.2) % Lymph % (Auto) (18.4-52.1) % Mcminn % (Auto) (4.4-15.7) % Eos % (Auto) (0.6-8.1) % Baso % (Auto) (0.2-1.5) % Neut # (Auto) (1.5-6.3) x10-3/uL Lymph # (Auto) (1.0-4.4) x10-3/uL Mcminn # (Auto) (0.3-1.0) x10-3/uL Eos # (Auto) (0.0-0.8) x10-3/uL Baso # (Auto) (0.0-0.1) x10-3/uL PT 24.6 H (9.0-11.1) sec INR 2.42 H (1.00-1.24) D-Dimer, Quantitative (0.0-0.59) mg/LFEU POC VBG pH (7.32-7.43) pH Units POC VBG pCO2 (41-51) mmHg POC VBG HCO3 (22-29) mmol/L VBG Base Excess (-2 - 3+) mmol/L O2 Delivery Device Sodium 140 (135-145) mmol/L Potassium 3.8 (3.5-5.3) mmol/L Chloride 106 (100-110) mmol/L Carbon Dioxide 27 (21-32) mmol/L BUN 11 (7-18) mg/dL Creatinine 1.1 H (0.55-1.02) mg/dL Est Cr Clr Drug Dosing 29.79 Estimated GFR (MDRD) 48 L (>60) BUN/Creatinine Ratio 10.0 (9-20) Glucose 120 H (80-116) mg/dL Lactic Acid (0.4-2.0) mmol/L Calcium 9.2 (8.6-10.2) mg/dL Magnesium (1.8-2.5) mg/dL Total Bilirubin 0.2 (0.1-1.3) mg/dL Direct Bilirubin 0.12 (0.10-0.20) mg/dL AST 10 D (5-25) IU/L ALT 27 (12-36) U/L Alkaline Phosphatase 87 (56-112) IU/L Lactate Dehydrogenase (81-234) U/L C-Reactive Protein 2.6 H* (0.5-0.9) mg/dL Total Protein 6.6 (6.0-8.0) g/dL Albumin 2.8 L (3.2-4.6) g/dL Globulin 3.8 g/dL Albumin/Globulin Ratio 0.7 Urine Color (YELLOW) Urine Appearance (CLEAR) Urine pH (5.0-6.5) Ur Specific Bow (1.010-1.025) Urine Protein (NEGATIVE) mg/dL Urine Glucose (UA) (NORMAL) mg/dL Urine Ketones (NEGATIVE) mg/dL Urine Occult Blood (NEGATIVE) Urine Nitrite (NEGATIVE) Urine Bilirubin (NEGATIVE) Urine Urobilinogen (NEGATIVE) mg/dL Ur Leukocyte Esterase (NEGATIVE) Urine RBC (0-5) Urine WBC (0-5) Ur Squamous Epith Cells (NS,R,O) Urine Bacteria (NS) SARS-CoV-2 RNA (ROBERT) (NEGATIVE) Result Diagrams: 10/24/21 06:55 10/24/21 06:55 Sepsis Event Note - Evaluation Sepsis Screening Result: No Definite Risk - Focused Exam Vital Signs: Vital Signs Temp Pulse Resp BP BP Pulse Ox 10/24/21 08:22 136/74 10/24/21 08:21 136/74 10/24/21 04:00 98.9 F 63 18 134/70 95 10/24/21 00:00 98.0 F 59 L 18 136/77 97 - Problem List & Annotations (1) Palliative care status SNOMED Code(s): 100209653 Code(s): Z51.5 - ENCOUNTER FOR PALLIATIVE CARE Status: Acute Current Visit: Yes (2) Hypoxia SNOMED Code(s): 438043438 Code(s): R09.02 - HYPOXEMIA Status: Acute Current Visit: Yes (3) Acute kidney injury SNOMED Code(s): 54384944, 66332189 Code(s): N17.9 - ACUTE KIDNEY FAILURE, UNSPECIFIED Status: Acute Current Visit: Yes (4) COVID SNOMED Code(s): 475812117 Code(s): U07.1 - COVID-19 Status: Acute Current Visit: Yes (5) Congestive heart failure SNOMED Code(s): 82043580 Code(s): I50.9 - HEART FAILURE, UNSPECIFIED Status: Acute Current Visit: No Qualifiers: Heart failure type: diastolic Heart failure chronicity: chronic Qualified Code(s): I50.32 - Chronic diastolic (congestive) heart failure (6) Fall SNOMED Code(s): 4612672, 462270518 Code(s): W19.XXXA - UNSPECIFIED FALL, INITIAL ENCOUNTER Status: Acute Current Visit: No Qualifiers: Encounter type: initial encounter Qualified Code(s): W19.XXXA - Unspecified fall, initial encounter (7) Hypertension SNOMED Code(s): 13755850 Code(s): I10 - ESSENTIAL (PRIMARY) HYPERTENSION Status: Acute Current Visit: No Qualifiers: Hypertension type: renovascular hypertension Qualified Code(s): I15.0 - Renovascular hypertension (8) Hypothyroidism SNOMED Code(s): 99400041 Code(s): E03.9 - HYPOTHYROIDISM, UNSPECIFIED Status: Acute Current Visit: No Qualifiers: Hypothyroidism type: acquired Qualified Code(s): E03.9 - Hypothyroidism, unspecified - Problem List Review Problem List Initiated/Reviewed/Updated: Yes - My Orders Last 24 Hours: My Active Orders 10/23/21 16:12 Acetaminophen [TylenoL] 650 mg PO Q4H PRN Isolation [COMM] Stat 10/23/21 16:15 Patient Status [ADT] Routine 10/23/21 16:17 Atropine/Diphenoxylate [Lomotil 0.025-2.5 MG] 1 tab PO DAILY PRN Fexofenadine [Mihaela] 180 mg PO DAILY PRN LORazepam [Ativan] 0.5 mg PO BID PRN 10/23/21 17:15 Lactated Ringers [Ringers, Lactated] 1,000 ml IV ASDIRECTED 10/23/21 19:55 LITHIUM (ESKALITH(R)), SERUM Routine PROCALCITONIN Routine 10/23/21 21:00 Calcium Carbonate [Oyster Shell Calcium] 500 mg PO BID Cholestyramine/Sucrose [Cholestyramine Packet] 4 gm PO BID Gibbs Carbonate [Eskalith] 300 mg PO BEDTIME QUEtiapine [SEROqueL] 100 mg PO BEDTIME 10/24/21 02:48 Code Status [Resuscitation Status] Routine 10/24/21 08:00 Warfarin Sliding Scale [Coumadin Sliding Scale] 1 each PO ONETIME ONE 10/24/21 09:00 Anastrozole [Arimidex] 1 mg PO DAILY Clobetasol [Clobetasol Propionate 0.05%] 0 gm TOP BID Enalapril [Vasotec] 20 mg PO DAILY Fluticasone Propionate [Flonase] 0 gm DEMARCUS DAILY Multivitamins w-Iron/Ca/FA/Min [Thera M Plus] 1 tab PO DAILY Phytonadione [Vitamin K] 100 mcg PO DAILY Potassium Chloride [Klor-Con 10] 10 meq PO DAILY amLODIPine [Norvasc] 5 mg PO DAILY dexAMETHasone 6 mg PO DAILY 10/24/21 16:00 Remdesivir 100 mg Sodium Chloride 0.9% [Normal Saline] 100 ml IV Q24H 10/24/21 21:00 Propranolol [Inderal LA] 80 mg PO BEDTIME 10/25/21 07:00 Levothyroxine 125 mcg PO DAILY@0700 10/25/21 16:15 HEPATIC FUNCTION PANEL,HFP [CHEM] DAILY 10/26/21 06:00 Alendronate [Fosamax] 70 mg PO We@0600 10/26/21 16:15 HEPATIC FUNCTION PANEL,HFP [CHEM] DAILY 10/27/21 16:15 HEPATIC FUNCTION PANEL,HFP [CHEM] DAILY - Plan Plan:: 1. She was on 3 L oxygen but now is off this morning according to the nurse and she has normal O2 sats. 2. X-ray reviewed and very poor inspiration. I do not see a reason to cover antibiotics for secondary bacterial infection at this point. Wait for radiology interpretation x-ray. 3. Hold Lasix for now. 4. PT/OT for strengthening. 5. Continue anti-viral and dexamethasone. 6. ABGs reviewed pH is a little low and PCO2 is little high. Patient clinically is better so I am not can repeat ABGs at this time. 7. Repeat labs in a.m.
[2021-10-24] MEDS ORDERED: Levothyroxine 125 MCG Tab PO SCH (09:00)
[2021-10-24] MEDS: Sodium Chloride 0.9% 10 ML Syringe FLUSH PRN ×5 (14:20→17:05)
[2021-10-24] MEDS ORDERED: Warfarin 5 MG Tab PO SCH (16:00)
[2021-10-24] MEDS ORDERED: Warfarin 2.5 MG Tab PO SCH (16:00)
[2021-10-24] MEDS: REMDESIVIR 100 MG in Sodium Chloride 0.9% 100 ML IV SCH (16:06)
[2021-10-24] MEDS: Lithium Carbonate 300 MG Cap PO SCH (20:21)
[2021-10-24] MEDS: Propranolol 80 MG Cap.ER PO SCH (20:23)
[2021-10-24] MEDS: QUEtiapine 100 MG Tab PO SCH (20:24)
[2021-10-25] MEDS: Levothyroxine 125 MCG Tab PO SCH (06:10)
[2021-10-25] MEDS: Anastrozole 1 MG Tab PO SCH (08:05)
[2021-10-25] MEDS: Cholestyramine/Sucrose Powder 4 GM Packet PO SCH ×2 (08:05→20:05)
[2021-10-25] MEDS: Clobetasol 0.05% Crm 15 GM Tube TOP SCH ×2 (08:06→20:04)
[2021-10-25] MEDS: Dexamethasone 2 MG Tab PO SCH (08:06)
[2021-10-25] MEDS: Fluticasone Propionate Nasal Spray 16 GM Bottle NAS SCH (08:06)
[2021-10-25] MEDS: Potassium Chloride 10 MEQ Tab.ER PO SCH (08:07)
[2021-10-25] MEDS: amLODIPine 5 MG Tab PO SCH (08:07)
[2021-10-25] MEDS: Calcium Carbonate 500 MG Tablet PO SCH ×2 (08:08→20:06)
[2021-10-25] MEDS: Multivitamins with Iron/Calcium/Folic Acid/Minerals Tab PO SCH (08:08)
[2021-10-25] MEDS: Phytonadione 100 MCG Tab PO SCH (08:09)
--- NOTE | 2021-10-25 08:33 | PCM.PN ---
- General Info Date of Service: 10/25/21 Admission Dx/Problem (Free Text): This is 80-year-old female patient in for Covid. She has a little cough with white sputum now. She denies shortness of breath, fevers, chills, body aches, loss of taste or smell. Strength is improved. Nurses report that she transferred herself today. - Patient Data Vitals - Most Recent: Last Vital Signs Temp 98.2 F 10/25/21 04:00 Pulse 51 L 10/25/21 04:00 Resp 17 10/25/21 04:00 BP 130/78 10/25/21 08:08 Pulse Ox 92 L 10/25/21 04:00 Weight - Most Recent: 150 lb 14.4 oz Lab Results Last 24 Hours: Laboratory Results - last 24 hr 10/25/21 10/25/21 10/25/21 Range/Units 06:45 06:45 06:45 WBC 5.7 (3.0-10.3) x10-3/uL RBC 3.86 (3.60-5.20) x10(6)uL Hgb 12.4 (11.4-15.5) g/dL Hct 37.7 (34.2-48.2) % MCV 97.8 (76.7-100.5) fL MCH 32.1 (23.9-33.9) pg MCHC 32.8 (31.9-34.8) g/dL RDW 13.6 (12.3-16.5) % Plt Count 276 (151-488) x10(3)uL MPV 7.3 (7.1-12.4) fL Neut % (Auto) 74.7 (30.8-76.2) % Lymph % (Auto) 17.3 L (18.4-52.1) % Price % (Auto) 7.5 (4.4-15.7) % Eos % (Auto) 0.2 L (0.6-8.1) % Baso % (Auto) 0.3 (0.2-1.5) % Neut # (Auto) 4.3 (1.5-6.3) x10-3/uL Lymph # (Auto) 1.0 (1.0-4.4) x10-3/uL Price # (Auto) 0.4 (0.3-1.0) x10-3/uL Eos # (Auto) 0.0 (0.0-0.8) x10-3/uL Baso # (Auto) 0.0 (0.0-0.1) x10-3/uL PT (9.0-11.1) sec INR (1.00-1.24) Sodium (135-145) mmol/L Potassium (3.5-5.3) mmol/L Chloride (100-110) mmol/L Carbon Dioxide (21-32) mmol/L BUN (7-18) mg/dL Creatinine (0.55-1.02) mg/dL Est Cr Clr Drug Dosing mL/min Estimated GFR (MDRD) (>60) BUN/Creatinine Ratio (9-20) Glucose (80-116) mg/dL Calcium (8.6-10.2) mg/dL Total Bilirubin 0.2 (0.1-1.3) mg/dL Direct Bilirubin 0.06 L (0.10-0.20) mg/dL AST 11 (5-25) IU/L ALT 22 D (12-36) U/L Alkaline Phosphatase 77 (56-112) IU/L C-Reactive Protein 0.9 (0.5-0.9) mg/dL Total Protein 6.3 (6.0-8.0) g/dL Albumin 2.5 L (3.2-4.6) g/dL 10/25/21 10/25/21 Range/Units 06:45 06:45 WBC (3.0-10.3) x10-3/uL RBC (3.60-5.20) x10(6)uL Hgb (11.4-15.5) g/dL Hct (34.2-48.2) % MCV (76.7-100.5) fL MCH (23.9-33.9) pg MCHC (31.9-34.8) g/dL RDW (12.3-16.5) % Plt Count (151-488) x10(3)uL MPV (7.1-12.4) fL Neut % (Auto) (30.8-76.2) % Lymph % (Auto) (18.4-52.1) % Price % (Auto) (4.4-15.7) % Eos % (Auto) (0.6-8.1) % Baso % (Auto) (0.2-1.5) % Neut # (Auto) (1.5-6.3) x10-3/uL Lymph # (Auto) (1.0-4.4) x10-3/uL Price # (Auto) (0.3-1.0) x10-3/uL Eos # (Auto) (0.0-0.8) x10-3/uL Baso # (Auto) (0.0-0.1) x10-3/uL PT 29.2 H (9.0-11.1) sec INR 2.89 H (1.00-1.24) Sodium 143 (135-145) mmol/L Potassium 3.7 (3.5-5.3) mmol/L Chloride 108 (100-110) mmol/L Carbon Dioxide 30 (21-32) mmol/L BUN 13 (7-18) mg/dL Creatinine 1.1 H (0.55-1.02) mg/dL Est Cr Clr Drug Dosing 29.79 mL/min Estimated GFR (MDRD) 48 L (>60) BUN/Creatinine Ratio 11.8 (9-20) Glucose 83 (80-116) mg/dL Calcium 9.4 (8.6-10.2) mg/dL Total Bilirubin (0.1-1.3) mg/dL Direct Bilirubin (0.10-0.20) mg/dL AST (5-25) IU/L ALT (12-36) U/L Alkaline Phosphatase (56-112) IU/L C-Reactive Protein (0.5-0.9) mg/dL Total Protein (6.0-8.0) g/dL Albumin (3.2-4.6) g/dL Med Orders - Current: Current Medications Acetaminophen (Acetaminophen 325 Mg Tab) 650 mg PO Q4H PRN PRN Reason: Fever Greater Than 101 Alendronate Sodium (Alendronate 70 Mg Tab) 70 mg PO We@0600 [facility] Amlodipine Besylate (Amlodipine 5 Mg Tab) 5 mg PO DAILY [facility] Last Admin: 10/25/21 08:07 Dose: 5 mg Documented by: Anastrozole (Anastrozole 1 Mg Tab) 1 mg PO DAILY [facility] Last Admin: 10/25/21 08:05 Dose: 1 mg Documented by: Calcium Carbonate/Glycine (Calcium Carbonate 500 Mg Tablet) 500 mg PO BID [facility] Last Admin: 10/25/21 08:08 Dose: 500 mg Documented by: Cholestyramine Resin (Cholestyramine/Sucrose Powder 4 Gm Packet) 4 gm PO BID [facility] Last Admin: 10/25/21 08:05 Dose: 4 gm Documented by: Clobetasol Propionate (Clobetasol 0.05% Crm 15 Gm Tube) 0 gm TOP BID [facility] Last Admin: 10/25/21 08:06 Dose: 1 applic Documented by: Dexamethasone (Dexamethasone 2 Mg Tab) 6 mg PO DAILY [facility] Stop: 11/01/21 09:01 Last Admin: 10/25/21 08:06 Dose: 6 mg Documented by: Diphenoxylate HCl/Atropine (Atropine/Diphenoxylate 0.025-2.5 Mg Tab) 1 tab PO DAILY PRN PRN Reason: Diarrhea Enalapril Maleate (Enalapril 10 Mg Tab) 20 mg PO DAILY [facility] Last Admin: 10/25/21 08:08 Dose: 20 mg Documented by: Fexofenadine HCl (Fexofenadine 180 Mg Tab) 180 mg PO DAILY PRN PRN Reason: Allergies Fluticasone Propionate (Fluticasone Propionate Nasal [place] 16 Gm Bottle) 0 gm DEMARCUS DAILY [facility] Last Admin: 10/25/21 08:06 Dose: 2 spray Documented by: Remdesivir 100 mg/ Sodium (Chloride) 100 mls @ 100 mls/hr IV Q24H [facility] Stop: 10/27/21 16:59 Last Admin: 10/24/21 16:06 Dose: 100 mls/hr Documented by: Levothyroxine Sodium (Levothyroxine 125 Mcg Tab) 125 mcg PO DAILY@0700 [facility] Last Admin: 10/25/21 06:10 Dose: 125 mcg Documented by: [place] Carbonate ([place] Carbonate 300 Mg Cap) 300 mg PO BEDTIME [facility] Last Admin: 10/24/21 20:21 Dose: 300 mg Documented by: Lorazepam (Lorazepam 0.5 Mg Tab) 0.5 mg PO BID PRN PRN Reason: Anxiety Multivitamins/Minerals (Multivitamins With Iron/Calcium/Folic Acid/Minerals Tab) 1 tab PO DAILY [facility] Last Admin: 10/25/21 08:08 Dose: 1 tab Documented by: Phytonadione (Phytonadione 100 Mcg Tab) 100 mcg PO DAILY [facility] Last Admin: 10/25/21 08:09 Dose: 100 mcg Documented by: Potassium Chloride (Potassium Chloride 10 Meq Tab.Er) 10 meq PO DAILY [facility] Last Admin: 10/25/21 08:07 Dose: 10 meq Documented by: Propranolol HCl (Propranolol 80 Mg Cap.Er) 80 mg PO BEDTIME [facility] Last Admin: 10/24/21 20:23 Dose: 80 mg Documented by: Quetiapine Fumarate (Quetiapine 100 Mg Tab) 100 mg PO BEDTIME [facility] Last Admin: 10/24/21 20:24 Dose: 100 mg Documented by: Sodium Chloride (Sodium Chloride 0.9% 10 Ml Syringe) 10 ml FLUSH ASDIRECTED PRN PRN Reason: flush med Last Admin: 10/24/21 17:05 Dose: 10 ml Documented by: Warfarin Sodium (Warfarin Sliding Scale) 1 each PO ONETIME ONE Stop: 10/24/21 08:01 Warfarin Sodium (Warfarin 2.5 Mg Tab) 2.5 mg PO Mo@1600 [facility] Last Admin: 10/24/21 16:06 Dose: 2.5 mg Documented by: Warfarin Sodium (Warfarin 5 Mg Tab) 5 mg PO SuTuWeThFrSa@1600 [facility] Discontinued Medications Clobetasol Propionate (Clobetasol 0.05% Crm 45 Gm Tube) 0 gm TOP BID [facility] Last Admin: 10/23/21 21:24 Dose: 1 applic Documented by: Dexamethasone (Dexamethasone 4 Mg Tab) 6 mg PO DAILY [facility] Stop: 11/01/21 09:01 Last Admin: 10/23/21 17:46 Dose: 6 mg Documented by: Lactated Ringer's (Ringers, Lactated) 1,000 mls @ 999 mls/hr IV BOLUS ONE Stop: 10/23/21 12:11 Last Infusion: 10/23/21 12:30 Dose: 125 mls/hr Documented by: Remdesivir 200 mg/ Sodium (Chloride) 250 mls @ 200 mls/hr IV ONETIME ONE Stop: 10/23/21 17:26 Last Admin: 10/23/21 20:16 Dose: 200 mls/hr Documented by: Lactated Ringer's (Ringers, Lactated) 1,000 mls @ 100 mls/hr IV ASDIRECTED [facility] Last Admin: 10/24/21 05:45 Dose: 100 mls/hr Documented by: Levothyroxine Sodium (Levothyroxine 112 Mcg Tab) 112 mcg PO DAILY@0700 [facility] Last Admin: 10/24/21 06:05 Dose: 112 mcg Documented by: Warfarin Sodium (Warfarin 5 Mg Tab) 5 mg PO ONETIME ONE Stop: 10/23/21 21:16 Last Admin: 10/23/21 22:14 Dose: 5 mg Documented by: - Exam General: Alert, Oriented, Cooperative Lungs: Clear to Auscultation, Normal Respiratory Effort. No: Crackles, Rales, Rhonchi Cardiovascular: Regular Rate, Regular Rhythm, No Murmurs Extremities: No Pedal Edema - Patient Data Lab Results Last 24 hrs: Laboratory Results - last 24 hr 10/25/21 10/25/21 10/25/21 Range/Units 06:45 06:45 06:45 WBC 5.7 (3.0-10.3) x10-3/uL RBC 3.86 (3.60-5.20) x10(6)uL Hgb 12.4 (11.4-15.5) g/dL Hct 37.7 (34.2-48.2) % MCV 97.8 (76.7-100.5) fL MCH 32.1 (23.9-33.9) pg MCHC 32.8 (31.9-34.8) g/dL RDW 13.6 (12.3-16.5) % Plt Count 276 (151-488) x10(3)uL MPV 7.3 (7.1-12.4) fL Neut % (Auto) 74.7 (30.8-76.2) % Lymph % (Auto) 17.3 L (18.4-52.1) % Price % (Auto) 7.5 (4.4-15.7) % Eos % (Auto) 0.2 L (0.6-8.1) % Baso % (Auto) 0.3 (0.2-1.5) % Neut # (Auto) 4.3 (1.5-6.3) x10-3/uL Lymph # (Auto) 1.0 (1.0-4.4) x10-3/uL Price # (Auto) 0.4 (0.3-1.0) x10-3/uL Eos # (Auto) 0.0 (0.0-0.8) x10-3/uL Baso # (Auto) 0.0 (0.0-0.1) x10-3/uL PT (9.0-11.1) sec INR (1.00-1.24) Sodium (135-145) mmol/L Potassium (3.5-5.3) mmol/L Chloride (100-110) mmol/L Carbon Dioxide (21-32) mmol/L BUN (7-18) mg/dL Creatinine (0.55-1.02) mg/dL Est Cr Clr Drug Dosing mL/min Estimated GFR (MDRD) (>60) BUN/Creatinine Ratio (9-20) Glucose (80-116) mg/dL Calcium (8.6-10.2) mg/dL Total Bilirubin 0.2 (0.1-1.3) mg/dL Direct Bilirubin 0.06 L (0.10-0.20) mg/dL AST 11 (5-25) IU/L ALT 22 D (12-36) U/L Alkaline Phosphatase 77 (56-112) IU/L C-Reactive Protein 0.9 (0.5-0.9) mg/dL Total Protein 6.3 (6.0-8.0) g/dL Albumin 2.5 L (3.2-4.6) g/dL 10/25/21 10/25/21 Range/Units 06:45 06:45 WBC (3.0-10.3) x10-3/uL RBC (3.60-5.20) x10(6)uL Hgb (11.4-15.5) g/dL Hct (34.2-48.2) % MCV (76.7-100.5) fL MCH (23.9-33.9) pg MCHC (31.9-34.8) g/dL RDW (12.3-16.5) % Plt Count (151-488) x10(3)uL MPV (7.1-12.4) fL Neut % (Auto) (30.8-76.2) % Lymph % (Auto) (18.4-52.1) % Price % (Auto) (4.4-15.7) % Eos % (Auto) (0.6-8.1) % Baso % (Auto) (0.2-1.5) % Neut # (Auto) (1.5-6.3) x10-3/uL Lymph # (Auto) (1.0-4.4) x10-3/uL Price # (Auto) (0.3-1.0) x10-3/uL Eos # (Auto) (0.0-0.8) x10-3/uL Baso # (Auto) (0.0-0.1) x10-3/uL PT 29.2 H (9.0-11.1) sec INR 2.89 H (1.00-1.24) Sodium 143 (135-145) mmol/L Potassium 3.7 (3.5-5.3) mmol/L Chloride 108 (100-110) mmol/L Carbon Dioxide 30 (21-32) mmol/L BUN 13 (7-18) mg/dL Creatinine 1.1 H (0.55-1.02) mg/dL Est Cr Clr Drug Dosing 29.79 mL/min Estimated GFR (MDRD) 48 L (>60) BUN/Creatinine Ratio 11.8 (9-20) Glucose 83 (80-116) mg/dL Calcium 9.4 (8.6-10.2) mg/dL Total Bilirubin (0.1-1.3) mg/dL Direct Bilirubin (0.10-0.20) mg/dL AST (5-25) IU/L ALT (12-36) U/L Alkaline Phosphatase (56-112) IU/L C-Reactive Protein (0.5-0.9) mg/dL Total Protein (6.0-8.0) g/dL Albumin (3.2-4.6) g/dL Result Diagrams: 10/25/21 06:45 10/25/21 06:45 Sepsis Event Note - Evaluation Sepsis Screening Result: No Definite Risk - Focused Exam Vital Signs: Vital Signs Temp Pulse Resp BP BP Pulse Ox 10/25/21 08:08 130/78 10/25/21 08:07 130/78 10/25/21 04:00 98.2 F 51 L 17 134/77 92 L - Problem List & Annotations (1) Palliative care status SNOMED Code(s): 436772821 Code(s): Z51.5 - ENCOUNTER FOR PALLIATIVE CARE Status: Acute Current Visit: Yes (2) Hypoxia SNOMED Code(s): 606838823 Code(s): R09.02 - HYPOXEMIA Status: Acute Current Visit: Yes (3) Acute kidney injury SNOMED Code(s): 90117361, 23292007 Code(s): N17.9 - ACUTE KIDNEY FAILURE, UNSPECIFIED Status: Acute Current Visit: Yes (4) COVID SNOMED Code(s): 116801434 Code(s): U07.1 - COVID-19 Status: Acute Current Visit: Yes (5) Congestive heart failure SNOMED Code(s): 54377235 Code(s): I50.9 - HEART FAILURE, UNSPECIFIED Status: Acute Current Visit: No Qualifiers: Heart failure type: diastolic Heart failure chronicity: chronic Qualified Code(s): I50.32 - Chronic diastolic (congestive) heart failure (6) Fall SNOMED Code(s): 1760720, 157186317 Code(s): W19.XXXA - UNSPECIFIED FALL, INITIAL ENCOUNTER Status: Acute Current Visit: No Qualifiers: Encounter type: initial encounter Qualified Code(s): W19.XXXA - Unspecified fall, initial encounter (7) Hypertension SNOMED Code(s): 83900591 Code(s): I10 - ESSENTIAL (PRIMARY) HYPERTENSION Status: Acute Current Visit: No Qualifiers: Hypertension type: renovascular hypertension Qualified Code(s): I15.0 - Renovascular hypertension (8) Hypothyroidism SNOMED Code(s): 72154163 Code(s): E03.9 - HYPOTHYROIDISM, UNSPECIFIED Status: Acute Current Visit: No Qualifiers: Hypothyroidism type: acquired Qualified Code(s): E03.9 - Hypothyroidism, unspecified - Problem List Review Problem List Initiated/Reviewed/Updated: Yes - My Orders Last 24 Hours: My Active Orders 10/24/21 08:00 Warfarin Sliding Scale [Coumadin Sliding Scale] 1 each PO ONETIME ONE 10/24/21 08:28 Consult to Occupational Therapy [OT Evaluation and Treatment] [CONS] Routine Consult to Physical Therapy [PT Evaluation and Treatment] [CONS] Routine 10/24/21 09:00 Anastrozole [Arimidex] 1 mg PO DAILY Clobetasol [Clobetasol Propionate 0.05%] 0 gm TOP BID Enalapril [Vasotec] 20 mg PO DAILY Fluticasone Propionate [Flonase] 0 gm DEMARCUS DAILY Multivitamins w-Iron/Ca/FA/Min [Thera M Plus] 1 tab PO DAILY Phytonadione [Vitamin K] 100 mcg PO DAILY Potassium Chloride [Klor-Con 10] 10 meq PO DAILY amLODIPine [Norvasc] 5 mg PO DAILY dexAMETHasone 6 mg PO DAILY 10/24/21 14:17 Convert IV to Saline Lock [OM.PC] Routine 10/24/21 14:20 Sodium Chloride 0.9% [Saline Flush] 10 ml FLUSH ASDIRECTED PRN 10/24/21 16:00 Remdesivir 100 mg Sodium Chloride 0.9% [Normal Saline] 100 ml IV Q24H Warfarin [Coumadin] 2.5 mg PO Mo@1600 10/24/21 21:00 Propranolol [Inderal LA] 80 mg PO BEDTIME 10/25/21 07:00 Levothyroxine 125 mcg PO DAILY@0700 10/25/21 16:00 Warfarin [Coumadin] 5 mg PO SuTuWeThFrSa@1600 10/26/21 06:00 INR,PT,PROTHROMBIN TIME [COAG] DAILY Alendronate [Fosamax] 70 mg PO We@0600 10/26/21 16:15 HEPATIC FUNCTION PANEL,HFP [CHEM] DAILY 10/27/21 06:00 INR,PT,PROTHROMBIN TIME [COAG] DAILY 10/27/21 16:15 HEPATIC FUNCTION PANEL,HFP [CHEM] DAILY - Plan Plan:: 1. Continue the full course of aromas Denavir for the full course of 5 days which would be last day on 2 days from now. 2. Continue the dexamethasone for 5 days. 3. Start evaluating if the patient can go back to [facility] if they can do isolation or will we need to do swing bed possibly or Sunday if all goes well. 4. Still waiting for chest x-ray report. This has been reported to the head nurse who said she would call radiology and find out when we can get it.
[2021-10-25] MEDS: REMDESIVIR 100 MG in Sodium Chloride 0.9% 100 ML IV SCH (15:40)
[2021-10-25] MEDS ORDERED: Warfarin 2.5 MG Tab PO ONE (16:00)
[2021-10-25] MEDS ORDERED: Warfarin 2.5 MG Tab PO SCH (16:00)
[2021-10-25] MEDS ORDERED: Warfarin 5 MG Tab PO SCH (16:00)
[2021-10-25] MEDS: Sodium Chloride 0.9% 10 ML Syringe FLUSH PRN ×3 (16:45→16:47)
[2021-10-25] MEDS: Lithium Carbonate 300 MG Cap PO SCH (20:05)
[2021-10-25] MEDS: Propranolol 80 MG Cap.ER PO SCH (20:05)
[2021-10-25] MEDS: QUEtiapine 100 MG Tab PO SCH (20:06)
[2021-10-26] MEDS ORDERED: Alendronate 70 MG Tab PO SCH (06:00)
[2021-10-26 06:04] LABS: BASE EXCESS VENOUS,POC -1 mmol/L (-2 - 3+); PCO2 VENOUS,POC 61 mmHg (41-51); PH VENOUS,POC 7.27 pH Units (7.32-7.43)
[2021-10-26] MEDS: Levothyroxine 125 MCG Tab PO SCH (07:07)
--- NOTE | 2021-10-26 08:01 | PCM.PN ---
- General Info Date of Service: 10/26/21 Admission Dx/Problem (Free Text): States she has a little cough in the morning but it is white and clear. No shortness of breath, aches, fevers, chills, shortness of breath. Her strength is getting better. - Patient Data Vitals - Most Recent: Last Vital Signs Temp 98.7 F 10/26/21 04:00 Pulse 54 L 10/26/21 04:00 Resp 19 10/26/21 04:00 BP 128/81 10/26/21 04:00 Pulse Ox 92 L 10/26/21 04:00 Weight - Most Recent: 150 lb 14.4 oz I&O - Last 24 Hours: Intake & Output 10/25/21 10/26/21 10/26/21 22:59 06:59 14:59 Intake Total 100 Balance 100 Lab Results Last 24 Hours: Laboratory Results - last 24 hr 10/23/21 10/23/21 10/26/21 Range/Units 19:55 20:09 06:35 PT (9.0-11.1) sec INR (1.00-1.24) POC VBG pH 7.27 L (7.32-7.43) pH Units POC VBG pCO2 61 H (41-51) mmHg POC VBG HCO3 28 (22-29) mmol/L VBG Base Excess -1 (-2 - 3+) mmol/L O2 Delivery Device Nasal cannula Oxygen Flow Rate 2 LPM Total Bilirubin 0.2 (0.1-1.3) mg/dL Direct Bilirubin 0.09 L (0.10-0.20) mg/dL AST 11 (5-25) IU/L ALT 20 (12-36) U/L Alkaline Phosphatase 70 (56-112) IU/L Total Protein 6.1 (6.0-8.0) g/dL Albumin 2.5 L (3.2-4.6) g/dL [place] 0.7 (0.5-1.2) mmol/L 10/26/21 Range/Units 06:35 PT 29.5 H (9.0-11.1) sec INR 2.93 H (1.00-1.24) POC VBG pH (7.32-7.43) pH Units POC VBG pCO2 (41-51) mmHg POC VBG HCO3 (22-29) mmol/L VBG Base Excess (-2 - 3+) mmol/L O2 Delivery Device Oxygen Flow Rate LPM Total Bilirubin (0.1-1.3) mg/dL Direct Bilirubin (0.10-0.20) mg/dL AST (5-25) IU/L ALT (12-36) U/L Alkaline Phosphatase (56-112) IU/L Total Protein (6.0-8.0) g/dL Albumin (3.2-4.6) g/dL [place] (0.5-1.2) mmol/L Med Orders - Current: Current Medications Acetaminophen (Acetaminophen 325 Mg Tab) 650 mg PO Q4H PRN PRN Reason: Fever Greater Than 101 Alendronate Sodium (Alendronate 70 Mg Tab) 70 mg PO We@0600 [facility] Last Admin: 10/26/21 05:50 Dose: 70 mg Documented by: Amlodipine Besylate (Amlodipine 5 Mg Tab) 5 mg PO DAILY [facility] Last Admin: 10/25/21 08:07 Dose: 5 mg Documented by: Anastrozole (Anastrozole 1 Mg Tab) 1 mg PO DAILY [facility] Last Admin: 10/25/21 08:05 Dose: 1 mg Documented by: Calcium Carbonate/Glycine (Calcium Carbonate 500 Mg Tablet) 500 mg PO BID [facility] Last Admin: 10/25/21 20:06 Dose: 500 mg Documented by: Cholestyramine Resin (Cholestyramine/Sucrose Powder 4 Gm Packet) 4 gm PO BID [facility] Last Admin: 10/25/21 20:05 Dose: 4 gm Documented by: Clobetasol Propionate (Clobetasol 0.05% Crm 15 Gm Tube) 0 gm TOP BID [facility] Last Admin: 10/25/21 20:04 Dose: 1 applic Documented by: Dexamethasone (Dexamethasone 2 Mg Tab) 6 mg PO DAILY [facility] Stop: 11/01/21 09:01 Last Admin: 10/25/21 08:06 Dose: 6 mg Documented by: Diphenoxylate HCl/Atropine (Atropine/Diphenoxylate 0.025-2.5 Mg Tab) 1 tab PO DAILY PRN PRN Reason: Diarrhea Enalapril Maleate (Enalapril 10 Mg Tab) 20 mg PO DAILY [facility] Last Admin: 10/25/21 08:08 Dose: 20 mg Documented by: Fexofenadine HCl (Fexofenadine 180 Mg Tab) 180 mg PO DAILY PRN PRN Reason: Allergies Fluticasone Propionate (Fluticasone Propionate Nasal [place] 16 Gm Bottle) 0 gm DEMARCUS DAILY [facility] Last Admin: 10/25/21 08:06 Dose: 2 spray Documented by: Remdesivir 100 mg/ Sodium (Chloride) 100 mls @ 100 mls/hr IV Q24H [facility] Stop: 10/27/21 16:59 Last Admin: 10/25/21 15:40 Dose: 100 mls/hr Documented by: Levothyroxine Sodium (Levothyroxine 125 Mcg Tab) 125 mcg PO DAILY@0700 [facility] Last Admin: 10/26/21 07:07 Dose: 125 mcg Documented by: [place] Carbonate ([place] Carbonate 300 Mg Cap) 300 mg PO BEDTIME [facility] Last Admin: 10/25/21 20:05 Dose: 300 mg Documented by: Lorazepam (Lorazepam 0.5 Mg Tab) 0.5 mg PO BID PRN PRN Reason: Anxiety Multivitamins/Minerals (Multivitamins With Iron/Calcium/Folic Acid/Minerals Tab) 1 tab PO DAILY [facility] Last Admin: 10/25/21 08:08 Dose: 1 tab Documented by: Phytonadione (Phytonadione 100 Mcg Tab) 100 mcg PO DAILY [facility] Last Admin: 10/25/21 08:09 Dose: 100 mcg Documented by: Potassium Chloride (Potassium Chloride 10 Meq Tab.Er) 10 meq PO DAILY [facility] Last Admin: 10/25/21 08:07 Dose: 10 meq Documented by: Propranolol HCl (Propranolol 80 Mg Cap.Er) 80 mg PO BEDTIME [facility] Last Admin: 10/25/21 20:05 Dose: 80 mg Documented by: Quetiapine Fumarate (Quetiapine 100 Mg Tab) 100 mg PO BEDTIME [facility] Last Admin: 10/25/21 20:06 Dose: 100 mg Documented by: Sodium Chloride (Sodium Chloride 0.9% 10 Ml Syringe) 10 ml FLUSH ASDIRECTED PRN PRN Reason: flush med Last Admin: 10/25/21 16:47 Dose: 10 ml Documented by: Warfarin Sodium (Warfarin Sliding Scale) 1 each PO ONETIME ONE Stop: 10/24/21 08:01 Warfarin Sodium (Warfarin 2.5 Mg Tab) 2.5 mg PO Mo@1600 [facility] Last Admin: 10/24/21 16:06 Dose: 2.5 mg Documented by: Warfarin Sodium (Warfarin 5 Mg Tab) 5 mg PO SuTuWeThFrSa@1600 [facility] Discontinued Medications Clobetasol Propionate (Clobetasol 0.05% Crm 45 Gm Tube) 0 gm TOP BID [facility] Last Admin: 10/23/21 21:24 Dose: 1 applic Documented by: Dexamethasone (Dexamethasone 4 Mg Tab) 6 mg PO DAILY [facility] Stop: 11/01/21 09:01 Last Admin: 10/23/21 17:46 Dose: 6 mg Documented by: Lactated Ringer's (Ringers, Lactated) 1,000 mls @ 999 mls/hr IV BOLUS ONE Stop: 10/23/21 12:11 Last Infusion: 10/23/21 12:30 Dose: 125 mls/hr Documented by: Remdesivir 200 mg/ Sodium (Chloride) 250 mls @ 200 mls/hr IV ONETIME ONE Stop: 10/23/21 17:26 Last Admin: 10/23/21 20:16 Dose: 200 mls/hr Documented by: Lactated Ringer's (Ringers, Lactated) 1,000 mls @ 100 mls/hr IV ASDIRECTED [facility] Last Admin: 10/24/21 05:45 Dose: 100 mls/hr Documented by: Levothyroxine Sodium (Levothyroxine 112 Mcg Tab) 112 mcg PO DAILY@0700 [facility] Last Admin: 10/24/21 06:05 Dose: 112 mcg Documented by: Warfarin Sodium (Warfarin 5 Mg Tab) 5 mg PO ONETIME ONE Stop: 10/23/21 21:16 Last Admin: 10/23/21 22:14 Dose: 5 mg Documented by: Warfarin Sodium (Warfarin 2.5 Mg Tab) 2.5 mg PO ONETIME@1600 [facility] Stop: 10/25/21 16:01 Last Admin: 10/25/21 15:41 Dose: 2.5 mg Documented by: - Exam General: Alert, Oriented, Cooperative Neck: Supple Lungs: Clear to Auscultation, Normal Respiratory Effort Cardiovascular: Regular Rate, Regular Rhythm, No Murmurs Extremities: No Pedal Edema - Patient Data Lab Results Last 24 hrs: Laboratory Results - last 24 hr 10/23/21 10/23/21 10/26/21 Range/Units 19:55 20:09 06:35 PT (9.0-11.1) sec INR (1.00-1.24) POC VBG pH 7.27 L (7.32-7.43) pH Units POC VBG pCO2 61 H (41-51) mmHg POC VBG HCO3 28 (22-29) mmol/L VBG Base Excess -1 (-2 - 3+) mmol/L O2 Delivery Device Nasal cannula Oxygen Flow Rate 2 LPM Total Bilirubin 0.2 (0.1-1.3) mg/dL Direct Bilirubin 0.09 L (0.10-0.20) mg/dL AST 11 (5-25) IU/L ALT 20 (12-36) U/L Alkaline Phosphatase 70 (56-112) IU/L Total Protein 6.1 (6.0-8.0) g/dL Albumin 2.5 L (3.2-4.6) g/dL [place] 0.7 (0.5-1.2) mmol/L 10/26/21 Range/Units 06:35 PT 29.5 H (9.0-11.1) sec INR 2.93 H (1.00-1.24) POC VBG pH (7.32-7.43) pH Units POC VBG pCO2 (41-51) mmHg POC VBG HCO3 (22-29) mmol/L VBG Base Excess (-2 - 3+) mmol/L O2 Delivery Device Oxygen Flow Rate LPM Total Bilirubin (0.1-1.3) mg/dL Direct Bilirubin (0.10-0.20) mg/dL AST (5-25) IU/L ALT (12-36) U/L Alkaline Phosphatase (56-112) IU/L Total Protein (6.0-8.0) g/dL Albumin (3.2-4.6) g/dL [place] (0.5-1.2) mmol/L Result Diagrams: 10/25/21 06:45 10/25/21 06:45 Sepsis Event Note - Evaluation Sepsis Screening Result: No Definite Risk - Focused Exam Vital Signs: Vital Signs Temp Pulse Resp BP Pulse Ox 10/26/21 04:00 98.7 F 54 L 19 128/81 92 L 10/26/21 00:00 98.2 F 60 18 138/72 94 L 10/25/21 20:00 98 F 60 18 141/79 H 94 L - Problem List & Annotations (1) Palliative care status SNOMED Code(s): 090708105 Code(s): Z51.5 - ENCOUNTER FOR PALLIATIVE CARE Status: Acute Current Visit: Yes (2) Hypoxia SNOMED Code(s): 941970135 Code(s): R09.02 - HYPOXEMIA Status: Acute Current Visit: Yes (3) Acute kidney injury SNOMED Code(s): 24336360, 36084191 Code(s): N17.9 - ACUTE KIDNEY FAILURE, UNSPECIFIED Status: Acute Current Visit: Yes (4) COVID SNOMED Code(s): 160547315 Code(s): U07.1 - COVID-19 Status: Acute Current Visit: Yes (5) Congestive heart failure SNOMED Code(s): 41895011 Code(s): I50.9 - HEART FAILURE, UNSPECIFIED Status: Acute Current Visit: No Qualifiers: Heart failure type: diastolic Heart failure chronicity: chronic Qualified Code(s): I50.32 - Chronic diastolic (congestive) heart failure (6) Fall SNOMED Code(s): 4678814, 825741513 Code(s): W19.XXXA - UNSPECIFIED FALL, INITIAL ENCOUNTER Status: Acute Current Visit: No Qualifiers: Encounter type: initial encounter Qualified Code(s): W19.XXXA - Unspecified fall, initial encounter (7) Hypertension SNOMED Code(s): 04133014 Code(s): I10 - ESSENTIAL (PRIMARY) HYPERTENSION Status: Acute Current Visit: No Qualifiers: Hypertension type: renovascular hypertension Qualified Code(s): I15.0 - Renovascular hypertension (8) Hypothyroidism SNOMED Code(s): 03351085 Code(s): E03.9 - HYPOTHYROIDISM, UNSPECIFIED Status: Acute Current Visit: No Qualifiers: Hypothyroidism type: acquired Qualified Code(s): E03.9 - Hypothyroidism, unspecified - Problem List Review Problem List Initiated/Reviewed/Updated: Yes - My Orders Last 24 Hours: My Active Orders 10/25/21 07:00 Levothyroxine 125 mcg PO DAILY@0710/25/21 16:00 Warfarin [Coumadin] 5 mg PO SuTuWeThFrSa@1600 10/26/21 06:00 Alendronate [Fosamax] 70 mg PO We@0600 10/27/21 06:00 INR,PT,PROTHROMBIN TIME [COAG] DAILY 10/27/21 16:15 HEPATIC FUNCTION PANEL,HFP [CHEM] DAILY - Plan Plan:: 1. Continue the full course of aromas Demsenavir for the full course of 5 days which would be last day on 1 days from now. 2. Continue the dexamethasone for 5 days. 3. Start evaluating if the patient can go back to [facility] if they can do isolation or will we need to do swing bed possibly or Sunday if all goes well. 4. Still waiting for chest x-ray report. This has been reported to the head nurse who said she would call radiology and find out when we can get it.
[2021-10-26] MEDS: Clobetasol 0.05% Crm 15 GM Tube TOP SCH ×2 (08:19→19:59)
[2021-10-26] MEDS: Anastrozole 1 MG Tab PO SCH (08:19)
[2021-10-26] MEDS: Cholestyramine/Sucrose Powder 4 GM Packet PO SCH ×2 (08:19→19:59)
[2021-10-26] MEDS: Fluticasone Propionate Nasal Spray 16 GM Bottle NAS SCH (08:20)
[2021-10-26] MEDS: Dexamethasone 2 MG Tab PO SCH (08:20)
[2021-10-26] MEDS: Potassium Chloride 10 MEQ Tab.ER PO SCH (08:21)
[2021-10-26] MEDS: amLODIPine 5 MG Tab PO SCH (08:21)
[2021-10-26] MEDS: Calcium Carbonate 500 MG Tablet PO SCH ×2 (08:22→20:00)
[2021-10-26] MEDS: Phytonadione 100 MCG Tab PO SCH (08:22)
[2021-10-26] MEDS: Multivitamins with Iron/Calcium/Folic Acid/Minerals Tab PO SCH (08:22)
[2021-10-26] MEDS ORDERED: Warfarin 2.5 MG Tab PO ONE (16:00)
[2021-10-26] MEDS: REMDESIVIR 100 MG in Sodium Chloride 0.9% 100 ML IV SCH (16:06)
[2021-10-26] MEDS: Sodium Chloride 0.9% 10 ML Syringe FLUSH PRN ×4 (16:06→17:02)
[2021-10-26] MEDS: Lithium Carbonate 300 MG Cap PO SCH (20:00)
[2021-10-26] MEDS: Propranolol 80 MG Cap.ER PO SCH (20:00)
[2021-10-26] MEDS: QUEtiapine 100 MG Tab PO SCH (20:00)
[2021-10-27] MEDS: Levothyroxine 125 MCG Tab PO SCH (06:00)
[2021-10-27] MEDS: Cholestyramine/Sucrose Powder 4 GM Packet PO SCH (08:00)
[2021-10-27] MEDS: Clobetasol 0.05% Crm 15 GM Tube TOP SCH (08:00)
[2021-10-27] MEDS: Anastrozole 1 MG Tab PO SCH (08:00)
[2021-10-27] MEDS: Fluticasone Propionate Nasal Spray 16 GM Bottle NAS SCH (08:01)
[2021-10-27] MEDS: Dexamethasone 2 MG Tab PO SCH (08:01)
[2021-10-27] MEDS: Potassium Chloride 10 MEQ Tab.ER PO SCH (08:01)
[2021-10-27] MEDS: Phytonadione 100 MCG Tab PO SCH (08:02)
[2021-10-27] MEDS: Multivitamins with Iron/Calcium/Folic Acid/Minerals Tab PO SCH (08:02)
[2021-10-27] MEDS: Calcium Carbonate 500 MG Tablet PO SCH (08:02)
[2021-10-27] MEDS: amLODIPine 5 MG Tab PO SCH (08:02)
--- NOTE | 2021-10-27 08:23 | PCM.PN ---
- General Info Date of Service: 10/27/21 Admission Dx/Problem (Free Text): She has little cough. No shortness of breath, runny nose, fevers, chills or loss of taste or smell. Strength is getting better. - Patient Data Vitals - Most Recent: Last Vital Signs Temp 98.4 F 10/27/21 00:00 Pulse 60 10/27/21 00:00 Resp 18 10/27/21 00:00 BP 144/81 H 10/27/21 08:03 Pulse Ox 91 L 10/27/21 00:00 Weight - Most Recent: 150 lb 14.4 oz Lab Results Last 24 Hours: Laboratory Results - last 24 hr 10/23/21 10/27/21 10/27/21 Range/Units 19:55 06:10 06:10 PT 29.7 H (9.0-11.1) sec INR 2.95 H (1.00-1.24) Total Bilirubin 0.3 (0.1-1.3) mg/dL Direct Bilirubin 0.09 L (0.10-0.20) mg/dL AST 8 D (5-25) IU/L ALT 24 D (12-36) U/L Alkaline Phosphatase 75 (56-112) IU/L Total Protein 6.4 (6.0-8.0) g/dL Albumin 2.6 L (3.2-4.6) g/dL Procalcitonin 0.09 H (0.00-0.08) ng/mL Med Orders - Current: Current Medications Acetaminophen (Acetaminophen 325 Mg Tab) 650 mg PO Q4H PRN PRN Reason: Fever Greater Than 101 Alendronate Sodium (Alendronate 70 Mg Tab) 70 mg PO We@0600 [facility] Last Admin: 10/26/21 05:50 Dose: 70 mg Documented by: Amlodipine Besylate (Amlodipine 5 Mg Tab) 5 mg PO DAILY [facility] Last Admin: 10/27/21 08:02 Dose: 5 mg Documented by: Anastrozole (Anastrozole 1 Mg Tab) 1 mg PO DAILY [facility] Last Admin: 10/27/21 08:00 Dose: 1 mg Documented by: Calcium Carbonate/Glycine (Calcium Carbonate 500 Mg Tablet) 500 mg PO BID [facility] Last Admin: 10/27/21 08:02 Dose: 500 mg Documented by: Cholestyramine Resin (Cholestyramine/Sucrose Powder 4 Gm Packet) 4 gm PO BID [facility] Last Admin: 10/27/21 08:00 Dose: 4 gm Documented by: Clobetasol Propionate (Clobetasol 0.05% Crm 15 Gm Tube) 0 gm TOP BID [facility] Last Admin: 10/27/21 08:00 Dose: 1 applic Documented by: Dexamethasone (Dexamethasone 2 Mg Tab) 6 mg PO DAILY [facility] Stop: 11/01/21 09:01 Last Admin: 10/27/21 08:01 Dose: 6 mg Documented by: Diphenoxylate HCl/Atropine (Atropine/Diphenoxylate 0.025-2.5 Mg Tab) 1 tab PO DAILY PRN PRN Reason: Diarrhea Enalapril Maleate (Enalapril 10 Mg Tab) 20 mg PO DAILY [facility] Last Admin: 10/27/21 08:03 Dose: 20 mg Documented by: Fexofenadine HCl (Fexofenadine 180 Mg Tab) 180 mg PO DAILY PRN PRN Reason: Allergies Fluticasone Propionate (Fluticasone Propionate Nasal [place] 16 Gm Bottle) 0 gm DEMARCUS DAILY [facility] Last Admin: 10/27/21 08:01 Dose: 2 spray Documented by: Remdesivir 100 mg/ Sodium (Chloride) 100 mls @ 100 mls/hr IV Q24H [facility] Stop: 10/27/21 10:59 Levothyroxine Sodium (Levothyroxine 125 Mcg Tab) 125 mcg PO DAILY@0700 [facility] Last Admin: 10/27/21 06:00 Dose: 125 mcg Documented by: [place] Carbonate ([place] Carbonate 300 Mg Cap) 300 mg PO BEDTIME [facility] Last Admin: 10/26/21 20:00 Dose: 300 mg Documented by: Lorazepam (Lorazepam 0.5 Mg Tab) 0.5 mg PO BID PRN PRN Reason: Anxiety Multivitamins/Minerals (Multivitamins With Iron/Calcium/Folic Acid/Minerals Tab) 1 tab PO DAILY [facility] Last Admin: 10/27/21 08:02 Dose: 1 tab Documented by: Phytonadione (Phytonadione 100 Mcg Tab) 100 mcg PO DAILY [facility] Last Admin: 10/27/21 08:02 Dose: 100 mcg Documented by: Potassium Chloride (Potassium Chloride 10 Meq Tab.Er) 10 meq PO DAILY [facility] Last Admin: 10/27/21 08:01 Dose: 10 meq Documented by: Propranolol HCl (Propranolol 80 Mg Cap.Er) 80 mg PO BEDTIME [facility] Last Admin: 10/26/21 20:00 Dose: 80 mg Documented by: Quetiapine Fumarate (Quetiapine 100 Mg Tab) 100 mg PO BEDTIME [facility] Last Admin: 10/26/21 20:00 Dose: 100 mg Documented by: Sodium Chloride (Sodium Chloride 0.9% 10 Ml Syringe) 10 ml FLUSH ASDIRECTED PRN PRN Reason: flush med Last Admin: 10/26/21 17:02 Dose: 10 ml Documented by: Warfarin Sodium (Warfarin Sliding Scale) 1 each PO ONETIME ONE Stop: 10/24/21 08:01 Warfarin Sodium (Warfarin 2.5 Mg Tab) 2.5 mg PO Mo@1600 [facility] Last Admin: 10/24/21 16:06 Dose: 2.5 mg Documented by: Warfarin Sodium (Warfarin 5 Mg Tab) 5 mg PO SuTuWeThFrSa@1600 [facility] Discontinued Medications Clobetasol Propionate (Clobetasol 0.05% Crm 45 Gm Tube) 0 gm TOP BID [facility] Last Admin: 10/23/21 21:24 Dose: 1 applic Documented by: Dexamethasone (Dexamethasone 4 Mg Tab) 6 mg PO DAILY [facility] Stop: 11/01/21 09:01 Last Admin: 10/23/21 17:46 Dose: 6 mg Documented by: Lactated Ringer's (Ringers, Lactated) 1,000 mls @ 999 mls/hr IV BOLUS ONE Stop: 10/23/21 12:11 Last Infusion: 10/23/21 12:30 Dose: 125 mls/hr Documented by: Remdesivir 200 mg/ Sodium (Chloride) 250 mls @ 200 mls/hr IV ONETIME ONE Stop: 10/23/21 17:26 Last Admin: 10/23/21 20:16 Dose: 200 mls/hr Documented by: Remdesivir 100 mg/ Sodium (Chloride) 100 mls @ 100 mls/hr IV Q24H [facility] Stop: 10/26/21 17:00 Last Admin: 10/26/21 16:06 Dose: 100 mls/hr Documented by: Lactated Ringer's (Ringers, Lactated) 1,000 mls @ 100 mls/hr IV ASDIRECTED [facility] Last Admin: 10/24/21 05:45 Dose: 100 mls/hr Documented by: Levothyroxine Sodium (Levothyroxine 112 Mcg Tab) 112 mcg PO DAILY@0700 [facility] Last Admin: 10/24/21 06:05 Dose: 112 mcg Documented by: Warfarin Sodium (Warfarin 5 Mg Tab) 5 mg PO ONETIME ONE Stop: 10/23/21 21:16 Last Admin: 10/23/21 22:14 Dose: 5 mg Documented by: Warfarin Sodium (Warfarin 2.5 Mg Tab) 2.5 mg PO ONETIME@1600 [facility] Stop: 10/25/21 16:01 Last Admin: 10/25/21 15:41 Dose: 2.5 mg Documented by: Warfarin Sodium (Warfarin 2.5 Mg Tab) 1.25 mg PO ONETIME ONE Stop: 10/26/21 16:01 Last Admin: 10/26/21 16:06 Dose: 1.25 mg Documented by: - Exam General: Alert, Oriented Neck: Supple Lungs: Clear to Auscultation, Normal Respiratory Effort - Patient Data Lab Results Last 24 hrs: Laboratory Results - last 24 hr 10/23/21 10/27/21 10/27/21 Range/Units 19:55 06:10 06:10 PT 29.7 H (9.0-11.1) sec INR 2.95 H (1.00-1.24) Total Bilirubin 0.3 (0.1-1.3) mg/dL Direct Bilirubin 0.09 L (0.10-0.20) mg/dL AST 8 D (5-25) IU/L ALT 24 D (12-36) U/L Alkaline Phosphatase 75 (56-112) IU/L Total Protein 6.4 (6.0-8.0) g/dL Albumin 2.6 L (3.2-4.6) g/dL Procalcitonin 0.09 H (0.00-0.08) ng/mL Result Diagrams: 10/25/21 06:45 10/25/21 06:45 Sepsis Event Note - Evaluation Sepsis Screening Result: No Definite Risk - Focused Exam Vital Signs: Vital Signs Temp Pulse Resp BP BP Pulse Ox 10/27/21 08:03 144/81 H 10/27/21 08:02 144/81 H 10/27/21 00:00 98.4 F 60 18 142/80 H 91 L - Problem List & Annotations (1) Palliative care status SNOMED Code(s): 066802549 Code(s): Z51.5 - ENCOUNTER FOR PALLIATIVE CARE Status: Acute Current Visit: Yes (2) Hypoxia SNOMED Code(s): 965397701 Code(s): R09.02 - HYPOXEMIA Status: Acute Current Visit: Yes (3) Acute kidney injury SNOMED Code(s): 86319836, 23182667 Code(s): N17.9 - ACUTE KIDNEY FAILURE, UNSPECIFIED Status: Acute Current Visit: Yes (4) COVID SNOMED Code(s): 455841261 Code(s): U07.1 - COVID-19 Status: Acute Current Visit: Yes (5) Congestive heart failure SNOMED Code(s): 63166630 Code(s): I50.9 - HEART FAILURE, UNSPECIFIED Status: Acute Current Visit: No Qualifiers: Heart failure type: diastolic Heart failure chronicity: chronic Qualified Code(s): I50.32 - Chronic diastolic (congestive) heart failure (6) Fall SNOMED Code(s): 5221603, 072303703 Code(s): W19.XXXA - UNSPECIFIED FALL, INITIAL ENCOUNTER Status: Acute Current Visit: No Qualifiers: Encounter type: initial encounter Qualified Code(s): W19.XXXA - Unspecified fall, initial encounter (7) Hypertension SNOMED Code(s): 20218292 Code(s): I10 - ESSENTIAL (PRIMARY) HYPERTENSION Status: Acute Current Visit: No Qualifiers: Hypertension type: renovascular hypertension Qualified Code(s): I15.0 - Renovascular hypertension (8) Hypothyroidism SNOMED Code(s): 05621760 Code(s): E03.9 - HYPOTHYROIDISM, UNSPECIFIED Status: Acute Current Visit: No Qualifiers: Hypothyroidism type: acquired Qualified Code(s): E03.9 - Hypothyroidism, unspecified - Problem List Review Problem List Initiated/Reviewed/Updated: Yes - My Orders Last 24 Hours: My Active Orders 10/27/21 10:00 Remdesivir 100 mg Sodium Chloride 0.9% [Normal Saline] 100 ml IV Q24H - Plan Plan:: 1. Give her last infusion of the antiviral at 10 AM today. 2. Discharged to [facility] quarantine. 3. Recheck with Lilia Trinidad in 1 week.
--- NOTE | 2021-10-27 08:29 | PCM.DCSUM1 ---
Discharge Summary - Hospital Course Free Text/Narrative:: Hospital course-initially the patient was mildly hypoxic and a sat of 89%. We started some oxygen and after the steroid and the antiviral started patient's oxygen improved and we got her oxygen. She was eating and drinking so we stopped her IV fluids. She was very fatigued and initially could barely stand up out of the chair. Physical therapy and Occupational Therapy worked with her and she has stronger and stronger. Her respiratory symptoms never got worse and actually got better. She was never short of breath after she was in a couple days. We did the antiviral for 5 days and determine she could go home on isolation. She will need PT/OT at home. Brief History: This is a 80-year-old female patient that came to the emergency room for profound weakness. She lives at [facility] and fell and was found on the floor today. She is very weak and brought in. She was seen x2 this last week at walk-in clinic and was checked for UTI which she commonly has it was negative. The doctor thought she is at problems with polypharmacy. She also is in transition for primary care. And she was out of her Ativan. She did just get it refilled. They thought maybe some of her symptoms were withdrawal. She is basically felt weak all over. She denies fevers, chills. Starting to have a cough today that is productive. She does not have any shortness of breath. The daughter says she is wheezing. She denies loss of taste or smell, fevers, chills. She does have some chronic rhinorrhea that has not changed. No sore throat. She is not immunized. He was found to have Covid and acute kidney injury. Diagnosis: Stroke: No - Discharge Data Discharge Date: 10/27/21 Discharge Disposition: DC/Tfer to Custodial Care 63 Condition: Good - Referral to Home Health Date of Face to Face Encounter: 10/27/21 Reason for Homebound Status: Covid infection. aren Primary Care Physician: Lilia Burrows NP Skilled Need: 1. PT/OT. 2. Nurse for medication management, disease teaching. - Discharge Diagnosis/Problem(s) (1) Palliative care status SNOMED Code(s): 187129131 ICD Code: Z51.5 - ENCOUNTER FOR PALLIATIVE CARE Status: Acute Current Visit: Yes (2) Hypoxia SNOMED Code(s): 218760085 ICD Code: R09.02 - HYPOXEMIA Status: Acute Current Visit: Yes (3) Acute kidney injury SNOMED Code(s): 94974849, 39263733 ICD Code: N17.9 - ACUTE KIDNEY FAILURE, UNSPECIFIED Status: Acute Current Visit: Yes (4) COVID SNOMED Code(s): 411938615 ICD Code: U07.1 - COVID-19 Status: Acute Current Visit: Yes (5) Congestive heart failure SNOMED Code(s): 58968629 ICD Code: I50.9 - HEART FAILURE, UNSPECIFIED Status: Acute Current Visit: No Qualifiers: Heart failure type: diastolic Heart failure chronicity: chronic Qualified Code(s): I50.32 - Chronic diastolic (congestive) heart failure (6) Fall SNOMED Code(s): 2870959, 612752708 ICD Code: W19.XXXA - UNSPECIFIED FALL, INITIAL ENCOUNTER Status: Acute Current Visit: No Qualifiers: Encounter type: initial encounter Qualified Code(s): W19.XXXA - Unspecified fall, initial encounter (7) Hypertension SNOMED Code(s): 94155878 ICD Code: I10 - ESSENTIAL (PRIMARY) HYPERTENSION Status: Acute Current Visit: No Qualifiers: Hypertension type: renovascular hypertension Qualified Code(s): I15.0 - Renovascular hypertension (8) Hypothyroidism SNOMED Code(s): 75803844 ICD Code: E03.9 - HYPOTHYROIDISM, UNSPECIFIED Status: Acute Current Visit: No Qualifiers: Hypothyroidism type: acquired Qualified Code(s): E03.9 - Hypothyroidism, unspecified - Patient Summary/Data Consults: Consultations 10/24/21 08:28 Consult to Occupational Therapy [OT Evaluation and Treatment] [CONS] Routine Please Evaluate and Treat. OT Reason for Consult: Strengthening This query below is only for informational purposes and is not editable. Admission Diagnosis/Problem: Weakness Consult to Physical Therapy [PT Evaluation and Treatment] [CONS] Routine Please Evaluate and Treat. PT Reason for Consult: Strengthening This query below is only for informational purposes and is not editable. Admission Diagnosis/Problem: Weakness - Patient Instructions Diet: Regular Diet as Tolerated Activity: As Tolerated Driving: Do Not Drive Showering/Bathing: May Shower Other/Special Instructions: 1. Quarantine per CDC recommendations. 2. Recheck with primary provider in 1 week to the quarantine is over. - Discharge Plan *PRESCRIPTION DRUG MONITORING PROGRAM REVIEWED*: Not Applicable *COPY OF PRESCRIPTION DRUG MONITORING REPORT IN PATIENT GILMAR: Not Applicable Home Medications: Home Meds Cholestyramine (With Sugar) [Cholestyramine Powder] 1 scoop PO BID 02/16/18 [History] LORazepam 0.5 mg PO BID PRN 02/16/18 [History] [place] Carbonate 300 mg PO BEDTIME 02/16/18 [History] Potassium Chloride 10 meq PO DAILY 02/16/18 [History] Alendronate Sodium 70 mg PO WE 10/20/18 [History] Anastrozole [Arimidex] 1 mg PO DAILY 11/07/19 [History] Calcium Carbonate/Vitamin D3 [Caltrate 600+D 1500 MG-400 Units] 1 tab PO BID 11/07/19 [History] Diphenoxylate HCl/Atropine [Lomotil] 1 tab PO BID PRN 11/07/19 [History] Enalapril Maleate 20 mg PO DAILY 11/07/19 [History] Phytonadione [Vitamin K] 100 mcg PO DAILY 11/07/19 [History] QUEtiapine Fumarate [Quetiapine Fumarate] 100 mg PO BEDTIME 11/07/19 [History] amLODIPine [Norvasc] 5 mg PO DAILY #30 tab 11/07/19 [Rx] Clobetasol [Clobetasol Propionate 0.05%] 1 applic TOP BID 10/23/21 [History] Fexofenadine [Mihaela] 180 mg PO DAILY PRN 10/23/21 [History] Fluticasone Propionate [Flonase] 2 spray DEMARCUS DAILY 10/23/21 [History] Propranolol HCl [Inderal LA] 80 mg PO BEDTIME 10/23/21 [History] Warfarin Sodium [Jantoven] 0 mg PO MO 10/23/21 [History] Furosemide 40 mg PO DAILY 10/24/21 [History] Levothyroxine 125 mcg PO DAILY 10/24/21 [History] Warfarin [Coumadin] 2.5 mg PO Mo@1600 tablet 10/27/21 [Rx] Warfarin [Coumadin] 5 mg PO SuTuWeThFrSa@1600 tablet 10/27/21 [Rx] Patient Handouts: COVID-19: What Your Test Results Mean - [facility] (04/17/2020), COVID-19 Vaccine Information, COVID-19: Quarantine vs. Isolation - [facility] (11/04/2020), Fall Prevention in Hospitals, Adult, Venous Thromboembolism Prevention Forms: ED Department Discharge Referrals: Lilia Burrows NP [Primary Care Provider] - - Discharge Summary/Plan Comment DC Time >30 min.: Yes Total # of Minutes for Discharge Time: 15 minutes - Patient Data Vitals - Most Recent: Last Vital Signs Temp 98.4 F 10/27/21 00:00 Pulse 60 10/27/21 00:00 Resp 18 10/27/21 00:00 BP 144/81 H 10/27/21 08:03 Pulse Ox 91 L 10/27/21 00:00 Weight - Most Recent: 150 lb 14.4 oz Lab Results - Last 24 hrs: Laboratory Results - last 24 hr 10/23/21 10/27/21 10/27/21 Range/Units 19:55 06:10 06:10 PT 29.7 H (9.0-11.1) sec INR 2.95 H (1.00-1.24) Total Bilirubin 0.3 (0.1-1.3) mg/dL Direct Bilirubin 0.09 L (0.10-0.20) mg/dL AST 8 D (5-25) IU/L ALT 24 D (12-36) U/L Alkaline Phosphatase 75 (56-112) IU/L Total Protein 6.4 (6.0-8.0) g/dL Albumin 2.6 L (3.2-4.6) g/dL Procalcitonin 0.09 H (0.00-0.08) ng/mL Med Orders - Current: Current Medications Acetaminophen (Acetaminophen 325 Mg Tab) 650 mg PO Q4H PRN PRN Reason: Fever Greater Than 101 Alendronate Sodium (Alendronate 70 Mg Tab) 70 mg PO We@0600 [facility] Last Admin: 10/26/21 05:50 Dose: 70 mg Documented by: Amlodipine Besylate (Amlodipine 5 Mg Tab) 5 mg PO DAILY [facility] Last Admin: 10/27/21 08:02 Dose: 5 mg Documented by: Anastrozole (Anastrozole 1 Mg Tab) 1 mg PO DAILY [facility] Last Admin: 10/27/21 08:00 Dose: 1 mg Documented by: Calcium Carbonate/Glycine (Calcium Carbonate 500 Mg Tablet) 500 mg PO BID [facility] Last Admin: 10/27/21 08:02 Dose: 500 mg Documented by: Cholestyramine Resin (Cholestyramine/Sucrose Powder 4 Gm Packet) 4 gm PO BID [facility] Last Admin: 10/27/21 08:00 Dose: 4 gm Documented by: Clobetasol Propionate (Clobetasol 0.05% Crm 15 Gm Tube) 0 gm TOP BID [facility] Last Admin: 10/27/21 08:00 Dose: 1 applic Documented by: Dexamethasone (Dexamethasone 2 Mg Tab) 6 mg PO DAILY [facility] Stop: 11/01/21 09:01 Last Admin: 10/27/21 08:01 Dose: 6 mg Documented by: Diphenoxylate HCl/Atropine (Atropine/Diphenoxylate 0.025-2.5 Mg Tab) 1 tab PO DAILY PRN PRN Reason: Diarrhea Enalapril Maleate (Enalapril 10 Mg Tab) 20 mg PO DAILY [facility] Last Admin: 10/27/21 08:03 Dose: 20 mg Documented by: Fexofenadine HCl (Fexofenadine 180 Mg Tab) 180 mg PO DAILY PRN PRN Reason: Allergies Fluticasone Propionate (Fluticasone Propionate Nasal [place] 16 Gm Bottle) 0 gm DEMARCUS DAILY [facility] Last Admin: 10/27/21 08:01 Dose: 2 spray Documented by: Remdesivir 100 mg/ Sodium (Chloride) 100 mls @ 100 mls/hr IV Q24H [facility] Stop: 10/27/21 10:59 Levothyroxine Sodium (Levothyroxine 125 Mcg Tab) 125 mcg PO DAILY@0700 [facility] Last Admin: 10/27/21 06:00 Dose: 125 mcg Documented by: [place] Carbonate ([place] Carbonate 300 Mg Cap) 300 mg PO BEDTIME [facility] Last Admin: 10/26/21 20:00 Dose: 300 mg Documented by: Lorazepam (Lorazepam 0.5 Mg Tab) 0.5 mg PO BID PRN PRN Reason: Anxiety Multivitamins/Minerals (Multivitamins With Iron/Calcium/Folic Acid/Minerals Tab) 1 tab PO DAILY [facility] Last Admin: 10/27/21 08:02 Dose: 1 tab Documented by: Phytonadione (Phytonadione 100 Mcg Tab) 100 mcg PO DAILY [facility] Last Admin: 10/27/21 08:02 Dose: 100 mcg Documented by: Potassium Chloride (Potassium Chloride 10 Meq Tab.Er) 10 meq PO DAILY [facility] Last Admin: 10/27/21 08:01 Dose: 10 meq Documented by: Propranolol HCl (Propranolol 80 Mg Cap.Er) 80 mg PO BEDTIME [facility] Last Admin: 10/26/21 20:00 Dose: 80 mg Documented by: Quetiapine Fumarate (Quetiapine 100 Mg Tab) 100 mg PO BEDTIME [facility] Last Admin: 10/26/21 20:00 Dose: 100 mg Documented by: Sodium Chloride (Sodium Chloride 0.9% 10 Ml Syringe) 10 ml FLUSH ASDIRECTED PRN PRN Reason: flush med Last Admin: 10/26/21 17:02 Dose: 10 ml Documented by: Warfarin Sodium (Warfarin Sliding Scale) 1 each PO ONETIME ONE Stop: 10/24/21 08:01 Warfarin Sodium (Warfarin 2.5 Mg Tab) 2.5 mg PO Mo@1600 [facility] Last Admin: 10/24/21 16:06 Dose: 2.5 mg Documented by: Warfarin Sodium (Warfarin 5 Mg Tab) 5 mg PO SuTuWeThFrSa@1600 [facility] Discontinued Medications Clobetasol Propionate (Clobetasol 0.05% Crm 45 Gm Tube) 0 gm TOP BID [facility] Last Admin: 10/23/21 21:24 Dose: 1 applic Documented by: Dexamethasone (Dexamethasone 4 Mg Tab) 6 mg PO DAILY [facility] Stop: 11/01/21 09:01 Last Admin: 10/23/21 17:46 Dose: 6 mg Documented by: Lactated Ringer's (Ringers, Lactated) 1,000 mls @ 999 mls/hr IV BOLUS ONE Stop: 10/23/21 12:11 Last Infusion: 10/23/21 12:30 Dose: 125 mls/hr Documented by: Remdesivir 200 mg/ Sodium (Chloride) 250 mls @ 200 mls/hr IV ONETIME ONE Stop: 10/23/21 17:26 Last Admin: 10/23/21 20:16 Dose: 200 mls/hr Documented by: Remdesivir 100 mg/ Sodium (Chloride) 100 mls @ 100 mls/hr IV Q24H [facility] Stop: 10/26/21 17:00 Last Admin: 10/26/21 16:06 Dose: 100 mls/hr Documented by: Lactated Ringer's (Ringers, Lactated) 1,000 mls @ 100 mls/hr IV ASDIRECTED [facility] Last Admin: 10/24/21 05:45 Dose: 100 mls/hr Documented by: Levothyroxine Sodium (Levothyroxine 112 Mcg Tab) 112 mcg PO DAILY@0700 [facility] Last Admin: 10/24/21 06:05 Dose: 112 mcg Documented by: Warfarin Sodium (Warfarin 5 Mg Tab) 5 mg PO ONETIME ONE Stop: 10/23/21 21:16 Last Admin: 10/23/21 22:14 Dose: 5 mg Documented by: Warfarin Sodium (Warfarin 2.5 Mg Tab) 2.5 mg PO ONETIME@1600 ONE Stop: 10/25/21 16:01 Last Admin: 10/25/21 15:41 Dose: 2.5 mg Documented by: Warfarin Sodium (Warfarin 2.5 Mg Tab) 1.25 mg PO ONETIME ONE Stop: 10/26/21 16:01 Last Admin: 10/26/21 16:06 Dose: 1.25 mg Documented by:
[2021-10-27] MEDS ORDERED: REMDESIVIR 100 MG in Sodium Chloride 0.9% 100 ML IV SCH (10:00)
== END 2021-10-27 11:15 | DRG 178 ==
LOC: FB.ED 09:00 → FB.MS 14:33
PROVIDERS: ADMIT Family Medicine; ATTEND Family Medicine
PROC: XW033E5 Introduction of Remdesivir Anti-infective into Peripheral Vein, Percutaneous Approach, New Technology Group 5 (ICD-10-PCS; principal; 2021-10-23)
PROC: 8E0ZXY6 Isolation (ICD-10-PCS; 2021-10-23)
PROC: 3E0DX3Z Introduction of Anti-inflammatory into Mouth and Pharynx, External Approach (ICD-10-PCS; 2021-10-23)
DX: U07.1 COVID-19 (principal); N17.9 Acute kidney failure, unspecified; I50.9 Heart failure, unspecified; I50.32 Chronic diastolic (congestive) heart failure; I11.0 Hypertensive heart disease with heart failure; E03.9 Hypothyroidism, unspecified; E78.00 Pure hypercholesterolemia, unspecified; Z85.3 Personal history of malignant neoplasm of breast; Z86.718 Personal history of other venous thrombosis and embolism; E78.5 Hyperlipidemia, unspecified; W19.XXXA Unspecified fall, initial encounter; Z79.890 Hormone replacement therapy; M19.90 Unspecified osteoarthritis, unspecified site; E86.0 Dehydration; Z51.5 Encounter for palliative care; Z79.01 Long term (current) use of anticoagulants; Z79.899 Other long term (current) drug therapy; Z90.49 Acquired absence of other specified parts of digestive tract; Z90.13 Acquired absence of bilateral breasts and nipples
CPT/HCPCS: 31500; 36415; 71046; 80048; 80053; 80076; 80178; 81001; 82248; 83605; 83615; 83735; 84145; 85025; 85379; 85610; 86140; 94150; 97110-GO; 97110-GP; 97116-GP; 97161-GP; 97165-GO; 97530-GO; 99285-25; A9270-GY; J7050; J7120; J8540; U0002

== ENCOUNTER 2021-11-13 19:18 | Emergency (ER) | payer MEDICARE ==
--- NOTE | 2021-11-13 19:56 | EDM.PDOC ---
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 Presents today with worsenig generalized weakness, diarrhea, decreased appetite as well as dysuria. Symptoms have been worsening over the past 1 week. No chest pain, fever, cough, SOB. Denies any abdominal pain. Patient presented to the ER for further evaluation Onset: Gradual Duration: Week(s): (1 week gradual onset weakness) Associated Symptoms: Reports: Loss of Appetite, Malaise, Weakness - Related Data Allergies Allergy/AdvReac Type Severity Reaction Status Date / Time No Known Allergies Allergy Verified 02/24/19 09:02 Home Meds: Home Meds Cholestyramine (With Sugar) [Cholestyramine Powder] 1 scoop PO BID 02/16/18 [History] LORazepam 0.5 mg PO BID PRN 02/16/18 [History] [place] Carbonate 300 mg PO BEDTIME 02/16/18 [History] Potassium Chloride 10 meq PO DAILY 02/16/18 [History] Alendronate Sodium 70 mg PO WE 10/20/18 [History] Anastrozole [Arimidex] 1 mg PO DAILY 11/07/19 [History] Calcium Carbonate/Vitamin D3 [Caltrate 600+D 1500 MG-400 Units] 1 tab PO BID 11/07/19 [History] Diphenoxylate HCl/Atropine [Lomotil] 1 tab PO BID PRN 11/07/19 [History] Enalapril Maleate 20 mg PO DAILY 11/07/19 [History] Phytonadione [Vitamin K] 100 mcg PO DAILY 11/07/19 [History] QUEtiapine Fumarate [Quetiapine Fumarate] 100 mg PO BEDTIME 11/07/19 [History] amLODIPine [Norvasc] 5 mg PO DAILY #30 tab 11/07/19 [Rx] Clobetasol [Clobetasol Propionate 0.05%] 1 applic TOP BID 10/23/21 [History] Fexofenadine [Mihaela] 180 mg PO DAILY PRN 10/23/21 [History] Fluticasone Propionate [Flonase] 2 spray DEMARCUS DAILY 10/23/21 [History] Propranolol HCl [Inderal LA] 80 mg PO BEDTIME 10/23/21 [History] Warfarin Sodium [Jantoven] 0 mg PO MO 10/23/21 [History] Furosemide 40 mg PO DAILY 10/24/21 [History] Levothyroxine 125 mcg PO DAILY 10/24/21 [History] Warfarin [Coumadin] 2.5 mg PO Mo@1600 tablet 10/27/21 [Rx] Warfarin [Coumadin] 5 mg PO SuTuWeThFrSa@1600 tablet 10/27/21 [Rx] cephALEXin [Keflex] 500 mg PO Q8H 7 Days #21 cap 11/13/21 [Rx] Past Medical History HEENT History: Reports: Allergic Rhinitis, Glaucoma, Impaired Vision, Other (See Below) Other HEENT History: sialoadenitis Cardiovascular History: Reports: Heart Failure, High Cholesterol, Hypertension, Other (See Below) (Hyperlipidemia) Other Cardiovascular History: varices Respiratory History: Reports: None Gastrointestinal History: Reports: None, Diverticulosis, GERD ROUTE MANAGER History: Reports: Other ROUTE MANAGER History: Musculoskeletal History: Reports: Arthritis, Other (See Below) Psychiatric History: Reports: Anxiety, Bipolar, Depression Endocrine/Metabolic History: Reports: Hypothyroidism, Other (See Below) Other Endocrine/Metabolic History: vitamin b12 deficiency Hematologic History: Reports: Anticoagulation Therapy Oncologic (Cancer) History: Reports: Breast - Infectious Disease History Infectious Disease History: Reports: Chicken Pox, Measles, Mumps Other Infectious Disease History: Unsure if she had Measles or Rubella as a child. - Past Surgical History HEENT Surgical History: Reports: Tonsillectomy GI Surgical History: Reports: Cholecystectomy Female Surgical History: Reports: Section, Mastectomy (Bilateral) Oncologic Surgical History: Reports: Mastectomy Other Oncologic Surgeries/Procedures: Right mastectomy 18 years ago. May need l eft breast surgery for discovery of lumps. Social & Family History - Family History Family Medical History: No Pertinent Family History - Caffeine Use Caffeine Use: Reports: Tea Caffeine Use Comment: decaf coffee - Living Situation & Occupation Living situation: Reports: Assisted Living Occupation: Retired ED ROS GENERAL - Review of Systems Review Of Systems: See Below Constitutional: Reports: No Symptoms HEENT: Reports: No Symptoms Respiratory: Reports: No Symptoms Cardiovascular: Reports: No Symptoms Endocrine: Reports: No Symptoms GI/Abdominal: Reports: No Symptoms : Reports: No Symptoms Musculoskeletal: Reports: No Symptoms Skin: Reports: No Symptoms Neurological: Reports: No Symptoms Psychiatric: Reports: No Symptoms Hematologic/Lymphatic: Reports: No Symptoms Immunologic: Reports: No Symptoms ED EXAM, GENERAL - Physical Exam Exam: See Below Exam Limited By: No Limitations General Appearance: Alert, WD/WN, No Apparent Distress Ears: Normal External Exam, Normal Canal, Hearing Grossly Normal, Normal TMs Ear Exam: Bilateral Ear: Auricle Normal, Canal Normal, TM normal Nose: Normal Inspection, Normal Mucosa, No Blood Throat/Mouth: Normal Inspection, Normal Lips, Normal Teeth, Normal Gums, Normal Oropharynx, Normal Voice, No Airway Compromise Head: Atraumatic, Normocephalic Neck: Normal Inspection, Supple, Non-Tender, Full Range of Motion Respiratory/Chest: No Respiratory Distress, Lungs Clear, Normal Breath Sounds, No Accessory Muscle Use, Chest Non-Tender Cardiovascular: Normal Peripheral Pulses, Regular Rate, Rhythm, No Edema, No Gallop, No JVD, No Murmur, No Rub GI/Abdominal: Normal Bowel Sounds, Soft, Non-Tender, No Organomegaly, No Diste ntion, No Abnormal Bruit, No Mass Back Exam: Normal Inspection, Full Range of Motion, NT Extremities: Normal Inspection, Normal Range of Motion, Non-Tender, Normal Capillary Refill, No Pedal Edema Neurological: Alert, Oriented, CN II-XII Intact, Normal Cognition, Normal Gait, Normal Reflexes, No Motor/Sensory Deficits Psychiatric: Normal Affect, Normal Mood Skin Exam: Warm, Dry, Intact, Normal Color, No Rash Lymphatic: No Adenopathy Course - Vital Signs Last Recorded V/S: Last Vital Signs Temp 37.3 C 11/13/21 19:18 Pulse 98 11/13/21 19:18 Resp 16 11/13/21 19:18 BP 107/63 11/13/21 19:18 Pulse Ox 95 11/13/21 19:18 - Orders/Labs/Meds Orders: Active Orders 24 hr Category Date Time Status CXR [Chest 2V] [CR] Stat Exams 11/13/21 20:03 Taken Labs: Laboratory Tests 11/13/21 11/13/21 11/13/21 Range/Units 20:13 20:13 20:13 WBC 9.0 (3.0-10.3) x10-3/uL RBC 3.88 (3.60-5.20) x10(6)uL Hgb 12.4 (11.4-15.5) g/dL Hct 37.8 (34.2-48.2) % MCV 97.3 (76.7-100.5) fL MCH 31.8 (23.9-33.9) pg MCHC 32.7 (31.9-34.8) g/dL RDW 13.6 (12.3-16.5) % Plt Count 488 (151-488) x10(3)uL MPV 7.2 (7.1-12.4) fL Neut % (Auto) 79.0 H (30.8-76.2) % Lymph % (Auto) 9.4 L (18.4-52.1) % Nance % (Auto) 9.4 (4.4-15.7) % Eos % (Auto) 1.9 (0.6-8.1) % Baso % (Auto) 0.3 (0.2-1.5) % Neut # (Auto) 7.1 H (1.5-6.3) x10-3/uL Lymph # (Auto) 0.8 L (1.0-4.4) x10-3/uL Nance # (Auto) 0.8 (0.3-1.0) x10-3/uL Eos # (Auto) 0.2 (0.0-0.8) x10-3/uL Baso # (Auto) 0.0 (0.0-0.1) x10-3/uL Sodium 135 (135-145) mmol/L Potassium 3.8 (3.5-5.3) mmol/L Chloride 100 D (100-110) mmol/L Carbon Dioxide 30 (21-32) mmol/L BUN 20 H (7-18) mg/dL Creatinine 1.4 H (0.55-1.02) mg/dL Est Cr Clr Drug Dosing 23.40 mL/min Estimated GFR (MDRD) 36 L (>60) BUN/Creatinine Ratio 14.3 (9-20) Glucose 108 (80-116) mg/dL Calcium 12.7 H D (8.6-10.2) mg/dL Magnesium 2.3 (1.8-2.5) mg/dL Total Bilirubin 0.5 (0.1-1.3) mg/dL AST 6 D (5-25) IU/L ALT 17 D (12-36) U/L Alkaline Phosphatase 127 H (56-112) IU/L Total Protein 7.0 (6.0-8.0) g/dL Albumin 2.7 L (3.2-4.6) g/dL Globulin 4.3 g/dL Albumin/Globulin Ratio 0.6 Urine Color (YELLOW) Urine Appearance (CLEAR) Urine pH (5.0-6.5) Ur Specific [place] (1.010-1.025) Urine Protein (NEGATIVE) mg/dL Urine Glucose (UA) (NORMAL) mg/dL Urine Ketones (NEGATIVE) mg/dL Urine Occult Blood (NEGATIVE) Urine Nitrite (NEGATIVE) Urine Bilirubin (NEGATIVE) Urine Urobilinogen (NEGATIVE) mg/dL Ur Leukocyte Esterase (NEGATIVE) Urine RBC (0-5) Urine WBC (0-5) Ur Squamous Epith Cells (NS,R,O) Urine Bacteria (NS) 11/13/21 Range/Units 20:50 WBC (3.0-10.3) x10-3/uL RBC (3.60-5.20) x10(6)uL Hgb (11.4-15.5) g/dL Hct (34.2-48.2) % MCV (76.7-100.5) fL MCH (23.9-33.9) pg MCHC (31.9-34.8) g/dL RDW (12.3-16.5) % Plt Count (151-488) x10(3)uL MPV (7.1-12.4) fL Neut % (Auto) (30.8-76.2) % Lymph % (Auto) (18.4-52.1) % Nance % (Auto) (4.4-15.7) % Eos % (Auto) (0.6-8.1) % Baso % (Auto) (0.2-1.5) % Neut # (Auto) (1.5-6.3) x10-3/uL Lymph # (Auto) (1.0-4.4) x10-3/uL Nance # (Auto) (0.3-1.0) x10-3/uL Eos # (Auto) (0.0-0.8) x10-3/uL Baso # (Auto) (0.0-0.1) x10-3/uL Sodium (135-145) mmol/L Potassium (3.5-5.3) mmol/L Chloride (100-110) mmol/L Carbon Dioxide (21-32) mmol/L BUN (7-18) mg/dL Creatinine (0.55-1.02) mg/dL Est Cr Clr Drug Dosing mL/min Estimated GFR (MDRD) (>60) BUN/Creatinine Ratio (9-20) Glucose (80-116) mg/dL Calcium (8.6-10.2) mg/dL Magnesium (1.8-2.5) mg/dL Total Bilirubin (0.1-1.3) mg/dL AST (5-25) IU/L ALT (12-36) U/L Alkaline Phosphatase (56-112) IU/L Total Protein (6.0-8.0) g/dL Albumin (3.2-4.6) g/dL Globulin g/dL Albumin/Globulin Ratio Urine Color Yellow (YELLOW) Urine Appearance Cloudy (CLEAR) Urine pH 5.0 (5.0-6.5) Ur Specific [place] 1.020 (1.010-1.025) Urine Protein Trace (NEGATIVE) mg/dL Urine Glucose (UA) Normal (NORMAL) mg/dL Urine Ketones Negative (NEGATIVE) mg/dL Urine Occult Blood Large H (NEGATIVE) Urine Nitrite Negative (NEGATIVE) Urine Bilirubin Small H (NEGATIVE) Urine Urobilinogen Normal (NEGATIVE) mg/dL Ur Leukocyte Esterase Large H (NEGATIVE) Urine RBC 5-10 H (0-5) Urine WBC >100 H (0-5) Ur Squamous Epith Cells Few H (NS,R,O) Urine Bacteria Many H (NS) Meds: Medications Discontinued Medications Generic Name Dose Route Start Last Admin Trade Name Freq PRN Reason Stop Dose Admin Cephalexin 500 mg 11/13/21 21:29 Cephalexin 500 Mg Cap PO 11/13/21 21:30 ONETIME ONE Sodium Chloride 1,000 mls @ 1,000 mls/hr 11/13/21 20:04 11/13/21 20:40 Normal Saline IV 11/13/21 21:03 1,000 mls/hr .BOLUS ONE Administration Departure - Departure Time of Disposition: 21:29 Disposition: Home, Self-Care 01 Condition: Good Clinical Impression: Viral gastroenteritis, Dehydration, UTI, Urinary tract infectious disease UTI (urinary tract infection) Qualifiers: Urinary tract infection type: acute cystitis Hematuria presence: without hematuria Qualified Code(s): N30.00 - Acute cystitis without hematuria - Discharge Information *PRESCRIPTION DRUG MONITORING PROGRAM REVIEWED*: Not Applicable *COPY OF PRESCRIPTION DRUG MONITORING REPORT IN PATIENT GILMAR: Not Applicable Prescriptions: cephALEXin [Keflex] 500 mg PO Q8H 7 Days #21 cap Instructions: Viral Gastroenteritis, Adult, Urinary Tract Infection, Adult, [place], Rehydration, Adult Referrals: Lilia Burrows NP [Primary Care Provider] - Forms: ED Department Discharge Sepsis Event Note (ED) - Focused Exam Vital Signs: Vital Signs Temp Pulse Resp BP Pulse Ox 11/13/21 19:18 37.3 C 98 16 107/63 95 - My Orders Last 24 Hours: My Active Orders 11/13/21 20:03 CXR [Chest 2V] [CR] Stat - Assessment/Plan Last 24 Hours: My Active Orders 11/13/21 20:03 CXR [Chest 2V] [CR] Stat
[2021-11-13] MEDS ORDERED: Sodium Chloride 0.9% 1,000 ML IV ONE (20:04)
[2021-11-13] MEDS ORDERED: Cephalexin 500 MG Cap PO ONE (21:29)
== END 2021-11-13 22:20 | disposition home or self-care (01) ==
LOC: FB.ED 19:18
DX: A08.4 Viral intestinal infection, unspecified (principal); N30.00 Acute cystitis without hematuria; E86.0 Dehydration; I11.0 Hypertensive heart disease with heart failure; I50.9 Heart failure, unspecified; E03.9 Hypothyroidism, unspecified; K21.9 Gastro-esophageal reflux disease without esophagitis; Z79.899 Other long term (current) drug therapy; Z79.01 Long term (current) use of anticoagulants
CPT/HCPCS: 36415; 71046; 80053; 81001; 83735; 85025; 87086; 87088; 87186; 99284-25; A9270-GY; J7030

== ENCOUNTER 2021-11-14 16:20 | Inpatient (IN) | payer MEDICARE ==
[2021-11-14] MEDS ORDERED: Sodium Chloride 0.9% 1,000 ML IV SCH (16:45)
[2021-11-14] MEDS ORDERED: Loperamide 2 MG Cap PO PRN (17:53)
[2021-11-14] MEDS ORDERED: Fluticasone Propionate Nasal Spray 16 GM Bottle NAS PRN (17:53)
[2021-11-14] MEDS ORDERED: Warfarin Sliding Scale PO SCH ×3 (18:00→20:00)
[2021-11-14] MEDS ORDERED: cefTRIAXone 1 GM in Sodium Chloride 0.9% 50 ML IV SCH (18:15)
--- NOTE | 2021-11-14 18:15 | PCM.HP.2 ---
H&P History of Present Illness - General Date of Service: 11/14/21 Admit Problem/Dx: Admission Diagnosis/Problem Admission Diagnosis/Problem Weakness Source of Information: Patient, Family - History of Present Illness Initial Comments - Free Text/Narative: 80-year-old lady was brought to the emergency department by her family due to severe weakness. Review of her past medical record shows that she tested positive for COVID-19 on 10/23/2021. She was admitted to the hospital and treated until discharge until 10/27/2021. She returned to the emergency department on 11/13/2021 due to weakness, anorexia, dysuria, nausea, diarrhea. She is found to have a urinary tract infection and treated with Keflex and sent home. She was also given 1 L of fluid. She returned to the emergency department today due to significant weakness. In the emergency department today she is found to have a very mild acute kidney injury. Urinalysis shows likely urinary tract infection. Cardiac enzymes show a normal troponin but an elevated BNP. Patient will be given gentle hydration, IV antibiotics, evaluated with OT/PT. Patient admitted to inpatient for further treatment and evaluation. - Related Data Allergies/Adverse Reactions: Allergies Allergy/AdvReac Type Severity Reaction Status Date / Time No Known Allergies Allergy Verified 02/24/19 09:02 Home Medications: Home Meds [place]oley Carbonate 300 mg PO BEDTIME 02/16/18 [History] Potassium Chloride 10 meq PO DAILY 02/16/18 [History] Alendronate Sodium 70 mg PO WE 10/20/18 [History] Anastrozole [Arimidex] 1 mg PO DAILY 11/07/19 [History] Calcium Carbonate/Vitamin D3 [Caltrate 600+D 1500 MG-400 Units] 1 tab PO BIDMEALS 11/07/19 [History] Phytonadione [Vitamin K] 100 mcg PO DAILY 11/07/19 [History] QUEtiapine Fumarate [Quetiapine Fumarate] 100 mg PO BEDTIME 11/07/19 [History] Fluticasone Propionate [Flonase] 2 spray DEMARCUS BID PRN 10/23/21 [History] Furosemide 40 mg PO DAILY 10/24/21 [History] Levothyroxine 125 mcg PO DAILY 10/24/21 [History] cephALEXin [Keflex] 500 mg PO Q8H 7 Days #21 cap 11/13/21 [Rx] Cyanocobalamin (Vitamin B-12) [Vitamin B-12] 1,000 mcg PO DAILY 11/14/21 [History] Enalapril [Vasotec] 10 mg PO DAILY 11/14/21 [History] Loperamide [Imodium] 2 mg PO ASDIRECTED PRN 11/14/21 [History] Multivitamin/Iron/Folic Acid [Certavite-Antioxidant Tablet] 1 tab PO DAILY 11/14/21 [History] Warfarin [Coumadin] 2.5 mg PO SUTUWETHSA@1600 11/14/21 [History] Warfarin [Coumadin] 5 mg PO MOFR@1600 11/14/21 [History] Past Medical History HEENT History: Reports: Allergic Rhinitis, Glaucoma, Impaired Vision, Other (See Below) Other HEENT History: sialoadenitis Cardiovascular History: Reports: Heart Failure, High Cholesterol, Hypertension, Other (See Below) Other Cardiovascular History: varices Respiratory History: Reports: None Gastrointestinal History: Reports: None, Diverticulosis, GERD [employer] History: Reports: Other OB/BYN History: Musculoskeletal History: Reports: Arthritis, Other (See Below) Psychiatric History: Reports: Anxiety, Bipolar, Depression Endocrine/Metabolic History: Reports: Hypothyroidism, Other (See Below) Other Endocrine/Metabolic History: vitamin b12 deficiency Hematologic History: Reports: Anticoagulation Therapy Oncologic (Cancer) History: Reports: Breast - Infectious Disease History Infectious Disease History: Reports: Chicken Pox, Measles, Mumps, Novel Coronavirus Other Infectious Disease History: Unsure if she had Measles or Rubella as a child. - Past Surgical History HEENT Surgical History: Reports: Tonsillectomy GI Surgical History: Reports: Cholecystectomy Female Surgical History: Reports: Section, Mastectomy (Bilateral) Oncologic Surgical History: Reports: Mastectomy Other Oncologic Surgeries/Procedures: Right mastectomy 18 years ago. May need left breast surgery for discovery of lumps. Social & Family History - Family History Family Medical History: No Pertinent Family History - Tobacco Use Tobacco Use Status *Q: Never Tobacco User - Caffeine Use Caffeine Use: Reports: Soda Caffeine Use Comment: decaf coffee - Recreational Drug Use Recreational Drug Use: No - Living Situation & Occupation Living situation: Reports: Assisted Living Occupation: Retired H&P Review of Systems - Review of Systems: Review Of Systems: See Below General: Reports: Chills, Malaise, Weakness HEENT: Reports: No Symptoms Pulmonary: Reports: No Symptoms Cardiovascular: Reports: No Symptoms Gastrointestinal: Reports: Anorexia, Diarrhea, Nausea Genitourinary: Reports: Dysuria Musculoskeletal: Reports: No Symptoms Skin: Reports: No Symptoms Psychiatric: Reports: No Symptoms Neurological: Reports: Difficulty Walking, Weakness Hematologic/Lymphatic: Reports: No Symptoms Immunologic: Reports: No Symptoms Exam - Exam Exam: See Below - Vital Signs Vital Signs: Last Vital Signs Temp 36.6 C 11/14/21 16:20 Pulse 67 11/14/21 16:20 Resp 18 11/14/21 16:20 BP 117/66 11/14/21 16:20 Pulse Ox 90 L 11/14/21 16:20 Weight: 70.307 kg - Exam Quality Assessment: Supplemental Oxygen, DVT Prophylaxis General: Alert, Oriented, Cooperative HEENT: EOMI Neck: Supple Lungs: Crackles Cardiovascular: Regular Rate, Regular Rhythm, Systolic Murmur GI/Abdominal Exam: Normal Bowel Sounds, Soft Back Exam: Other (Kyphosis). No: CVA Tenderness (R), CVA Tenderness (L) Extremities: Normal Inspection Peripheral Pulses: 2+: Radial (L), Radial (R), Dorsalis Pedis (L), Dorsalis Pedis (R) Skin: Cool Neurological: Cranial Nerves Intact Neuro Extensive - Mental Status: Alert, Oriented x3, Normal Mood/Affect, Normal Cognition Neuro Extensive - Motor, Sensory, Reflexes: CN II-XII Intact Psychiatric: Alert, Normal Affect, Normal Mood - Patient Data Lab Results Last 24 hrs: Laboratory Results - last 24 hr 11/14/21 11/14/21 Range/Units 17:00 17:00 PT 29.2 H (9.0-11.1) sec INR 2.89 H (1.00-1.24) Troponin I 5.8 (4.0-60.3) pg/mL NT-Pro-B Natriuret Pep 913 H (<=450) pg/mL Sepsis Event Note - Evaluation Sepsis Screening Result: No Definite Risk - Focused Exam Vital Signs: Vital Signs Temp Pulse Resp BP Pulse Ox 11/14/21 16:20 36.6 C 67 18 117/66 90 L - Problem List (1) Acute exacerbation of congestive heart failure SNOMED Code(s): 048070787, 31215985252382 ICD Code: I50.9 - HEART FAILURE, UNSPECIFIED Status: Acute Current Visit: Yes (2) Acute kidney injury SNOMED Code(s): 00672450, 37797131 ICD Code: N17.9 - ACUTE KIDNEY FAILURE, UNSPECIFIED Status: Acute Current Visit: No (3) Coronary disease SNOMED Code(s): 63731997 ICD Code: I25.10 - ATHSCL HEART DISEASE OF [place] CORONARY ARTERY W/O ANG PCTRS Status: Chronic Current Visit: No (4) Edentulous SNOMED Code(s): 208941584 ICD Code: 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.0 - ANODONTIA Status: Chronic Current Visit: No (5) Hypertension SNOMED Code(s): 06196390 ICD Code: I10 - ESSENTIAL (PRIMARY) HYPERTENSION Status: Chronic Current Visit: No (6) Hypothyroidism SNOMED Code(s): 27611725 ICD Code: E03.9 - HYPOTHYROIDISM, UNSPECIFIED Status: Chronic Current Visit: No (7) Palliative care status SNOMED Code(s): 603432521 ICD Code: Z51.5 - ENCOUNTER FOR PALLIATIVE CARE Status: Chronic Current Visit: No (8) UTI (urinary tract infection) SNOMED Code(s): 75561679 ICD Code: N39.0 - URINARY TRACT INFECTION, SITE NOT SPECIFIED Status: Acute Current Visit: No Problem List Initiated/Reviewed/Updated: Yes Orders Last 24hrs: Active Orders 24 hr Category Date Time Status Patient Status Manage Transfer [TRANSFER] Routine ADT 11/14/21 17:50 Active Patient Status [ADT] Routine ADT 11/14/21 17:52 Active Antiembolic Devices [RC] .Routine Care 11/14/21 17:52 Active EKG Documentation Completion [RC] ASDIRECTED Care 11/14/21 16:29 Active Pulse Oximetry [RC] PRN Care 11/14/21 17:52 Active VTE/DVT Education [RC] Click to Edit Care 11/14/21 17:52 Active Vital Signs [RC] Q4H Care 11/14/21 17:52 Active OT Evaluation and Treatment [CONS] Routine Cons 11/14/21 18:04 Active PT Evaluation and Treatment [CONS] Routine Cons 11/14/21 18:04 Active Regular Diet [DIET] Diet 11/15/21 Breakfast Ordered CXR [Chest 1V Frontal] [CR] Stat Exams 11/14/21 16:28 Stop Req CORONAVIRUS COVID-19 ROBERT [MOLEC] Stat Lab 11/14/21 16:26 Ordered Alendronate [Fosamax] Med 11/16/21 17:53 Active 70 mg PO WE Anastrozole [Arimidex] Med 11/15/21 09:00 Active 1 mg PO DAILY Enalapril [Vasotec] Med 11/15/21 09:00 Active 10 mg PO DAILY Fluticasone Propionate [Flonase] Med 11/14/21 17:53 Active 0 gm DEMARCUS BID PRN Furosemide [Lasix] Med 11/15/21 09:00 Active 40 mg PO DAILY Levothyroxine Med 11/15/21 09:00 Active 125 mcg PO DAILY Boley Carbonate [Eskalith] Med 11/14/21 21:00 Active 300 mg PO BEDTIME Loperamide [Imodium] Med 11/14/21 17:53 Active 2 mg PO ASDIRECTED PRN QUEtiapine [SEROqueL] Med 11/14/21 21:00 Active 100 mg PO BEDTIME Sodium Chloride 0.9% [Normal Saline] 1,000 ml Med 11/14/21 16:45 Active IV ASDIRECTED Sodium Chloride 0.9% [Saline Flush] Med 11/14/21 16:31 Active 10 ml FLUSH ASDIRECTED PRN Warfarin Sliding Scale [Coumadin Sliding Scale] Med 11/14/21 18:00 Active 1 each PO ASDIRECTED cefTRIAXone [Rocephin] 1 gm Med 11/14/21 18:15 Active Sodium Chloride 0.9% [Normal Saline] 50 ml IV Q24H DVT/VTE Prophylaxis Reflex [OM.PC] Per Unit Routine Oth 11/14/21 17:52 Ordered Saline Lock Insert [OM.PC] Routine Oth 11/14/21 16:31 Ordered Resuscitation Status Routine Resus Stat 11/14/21 17:52 Ordered EKG 12 Lead [EK] Routine Ther 11/14/21 16:28 Ordered Medication Orders Alendronate Sodium (Alendronate 70 Mg Tab) 70 mg PO WE ARYAN Anastrozole (Anastrozole 1 Mg Tab) 1 mg PO DAILY ARYAN Enalapril Maleate (Enalapril 10 Mg Tab) 10 mg PO DAILY ARYAN Fluticasone Propionate (Fluticasone Propionate Nasal [place] 16 Gm Bottle) 0 gm DEMARCUS BID PRN PRN Reason: Allergies Furosemide (Furosemide 40 Mg Tab) 40 mg PO DAILY ARYAN Sodium Chloride (Normal Saline) 1,000 mls @ 100 mls/hr IV ASDIRECTED ARYAN Ceftriaxone Sodium 1 gm/ (Sodium Chloride) 50 mls @ 200 mls/hr IV Q24H ARYAN Levothyroxine Sodium (Levothyroxine 125 Mcg Tab) 125 mcg PO DAILY ARYAN Boley Carbonate ([place] Carbonate 300 Mg Cap) 300 mg PO BEDTIME ARYAN Loperamide HCl (Loperamide 2 Mg Cap) 2 mg PO ASDIRECTED PRN PRN Reason: Diarrhea Quetiapine Fumarate (Quetiapine 100 Mg Tab) 100 mg PO BEDTIME ARYAN Sodium Chloride (Sodium Chloride 0.9% 10 Ml Syringe) 10 ml FLUSH ASDIRECTED PRN PRN Reason: Keep Vein Open Warfarin Sodium (Warfarin Sliding Scale) 1 each PO ASDIRECTED [facility] Assessment/Plan Comment:: 1. Admit patient to inpatient status. Patient has never really fully recovered from her Covid illness. Patient and family state that she just never really got back to her baseline and has continued to get more more weak over the last several days to week or more. Other recommendations based on treatment efficacy and evaluation and recommendations from OT/PT. 2. UTI/acute kidney injury: She will be given gentle hydration secondary to acute exacerbation of congestive heart failure, trend electrolytes and renal function, ceftriaxone 1 g IV daily 3. Acute exacerbation of congestive heart failure: Despite gentle hydration patient will be continued on her home medication including aromatase inhibitor, Lasix, potassium replacement, trend electrolytes monitor patient for signs of increasing congestive heart failure 4. Weakness: Evaluation and treatment with OT/PT 5. DVT prophylaxis: Continue patient's home warfarin 6. Prophylaxis: Heart healthy diet 7. Disposition: Patient has been chronically weak and getting weaker for the last 2+ weeks. If patient does not recover well from this UTI she will likely need some sort of acute rehabilitation and/or custodial placement. Likely 3 or more days
[2021-11-14] MEDS ORDERED: Warfarin 2.5 MG Tab PO ONE (20:15)
[2021-11-14] MEDS: Sodium Chloride 0.9% 10 ML Syringe FLUSH PRN ×2 (21:00→21:30)
[2021-11-14] MEDS: cefTRIAXone 1 GM Vial IV SCH (21:30)
[2021-11-14] MEDS: QUEtiapine 100 MG Tab PO SCH (21:31)
[2021-11-14] MEDS: Lithium Carbonate 300 MG Cap PO SCH (21:53)
[2021-11-15] MEDS: Anastrozole 1 MG Tab PO SCH (08:32)
[2021-11-15] MEDS: Levothyroxine 125 MCG Tab PO SCH (08:32)
[2021-11-15] MEDS ORDERED: Furosemide 40 MG Tab PO SCH (09:00)
--- NOTE | 2021-11-15 11:07 | CR ---
CHEST TWO VIEWS INDICATION: Hypoxia. FINDINGS: AP and two lateral sitting views of the chest 11/15/21 were compared with 11/13/21 and 10/23/21. Very poor inspiration is noted emphasizing markings. The heart appears enlarged with prominence of upper lung field pulmonary vasculature raising question of CHF. There also appear to be some interstitial changes, which may be fibrotic in nature or possibly due to interstitial lung edema in a patient with CHF. Extensive postsurgical changes are noted in both axillae and in the area of the right breast. No definite consolidating pneumonia or effusion was seen. Findings compatible with COPD are noted. Findings compatible with osteoporosis and probable compression fractures with accentuated dorsal kyphosis in the lower middle thoracic spine are again noted. The thoracic spine was not ideally visualized making it difficult to determine the presence of compression fractures compared with the previous study. IMPRESSION: 1. CHF with probable interstitial lung edema. 2. COPD. 3. ASHD with cardiomegaly. 4. Osteoporosis with accentuated kyphosis. MTDD
--- NOTE | 2021-11-15 11:35 | PCM.PN ---
- General Info Date of Service: 11/15/21 Admission Dx/Problem (Free Text): Admission Diagnosis/Problem Admission Diagnosis/Problem Weakness Subjective Update: Patient has no new complaints today, she continues to be very weak. Functional Status: Reports: Pain Controlled, Tolerating Diet, Urinating - Review of Systems General: Reports: Weakness HEENT: Reports: No Symptoms Pulmonary: Reports: No Symptoms Cardiovascular: Reports: No Symptoms Gastrointestinal: Reports: No Symptoms Genitourinary: Reports: No Symptoms Musculoskeletal: Reports: No Symptoms Skin: Reports: No Symptoms Neurological: Reports: Difficulty Walking, Weakness Psychiatric: Reports: No Symptoms - Patient Data Vitals - Most Recent: Last Vital Signs Temp 36.6 C 11/15/21 04:00 Pulse 67 11/15/21 04:00 Resp 16 11/15/21 04:00 BP 129/63 11/15/21 08:33 Pulse Ox 93 L 11/15/21 04:00 Weight - Most Recent: 64.127 kg I&O - Last 24 Hours: Intake & Output 11/14/21 11/15/21 11/15/21 22:59 06:59 14:59 Intake Total 300 700 Balance 300 700 Lab Results Last 24 Hours: Laboratory Results - last 24 hr 11/14/21 11/14/21 11/15/21 Range/Units 17:00 17:00 06:20 PT 29.2 H 22.4 H (9.0-11.1) sec INR 2.89 H 2.18 H (1.00-1.24) Troponin I 5.8 (4.0-60.3) pg/mL NT-Pro-B Natriuret Pep 913 H (<=450) pg/mL Med Orders - Current: Current Medications Alendronate Sodium (Alendronate 70 Mg Tab) 70 mg PO We@0630 COUNT INCLUDES THE [facility] Anastrozole (Anastrozole 1 Mg Tab) 1 mg PO DAILY COUNT INCLUDES THE [facility] Last Admin: 11/15/21 08:32 Dose: 1 mg Documented by: Ceftriaxone Sodium (Ceftriaxone 1 Gm Vial) 1 gm IV Q24H ARYAN Last Admin: 11/14/21 21:30 Dose: 1 gm Documented by: Enalapril Maleate (Enalapril 10 Mg Tab) 10 mg PO DAILY COUNT INCLUDES THE [facility] Last Admin: 11/15/21 08:33 Dose: 10 mg Documented by: Fluticasone Propionate (Fluticasone Propionate Nasal [place] 16 Gm Bottle) 0 gm DEMARCUS BID PRN PRN Reason: Allergies Furosemide (Furosemide 40 Mg Tab) 40 mg PO DAILY COUNT INCLUDES THE [facility] Last Admin: 11/15/21 08:32 Dose: 40 mg Documented by: Levothyroxine Sodium (Levothyroxine 125 Mcg Tab) 125 mcg PO ACBREAKFAST COUNT INCLUDES THE [facility] Last Admin: 11/15/21 08:32 Dose: 125 mcg Documented by: [place] Carbonate ([place] Carbonate 300 Mg Cap) 300 mg PO BEDTIME COUNT INCLUDES THE [facility] Last Admin: 11/14/21 21:53 Dose: 300 mg Documented by: Loperamide HCl (Loperamide 2 Mg Cap) 2 mg PO ASDIRECTED PRN PRN Reason: Diarrhea Quetiapine Fumarate (Quetiapine 100 Mg Tab) 100 mg PO BEDTIME COUNT INCLUDES THE [facility] Last Admin: 11/14/21 21:31 Dose: 100 mg Documented by: Sodium Chloride (Sodium Chloride 0.9% 10 Ml Syringe) 10 ml FLUSH ASDIRECTED PRN PRN Reason: Keep Vein Open Last Admin: 11/14/21 21:30 Dose: 10 ml Documented by: Warfarin Sodium (Warfarin Sliding Scale) 1 each PO ASDIRECTED COUNT INCLUDES THE [facility] Warfarin Sodium (Warfarin 2.5 Mg Tab) 2.5 mg PO SuTuWeThSa@1600 COUNT INCLUDES THE [facility] Warfarin Sodium (Warfarin 5 Mg Tab) 5 mg PO MoFr@1600 COUNT INCLUDES THE [facility] Discontinued Medications Sodium Chloride (Normal Saline) 1,000 mls @ 100 mls/hr IV ASDIRECTED COUNT INCLUDES THE [facility] Last Admin: 11/14/21 18:30 Dose: 100 mls/hr Documented by: Ceftriaxone Sodium 1 gm/ (Sodium Chloride) 50 mls @ 200 mls/hr IV Q24H COUNT INCLUDES THE [facility] Last Admin: 11/15/21 01:02 Dose: Not Given Documented by: Warfarin Sodium (Warfarin Sliding Scale) 1 each PO ASDIRECTED COUNT INCLUDES THE [facility] Warfarin Sodium (Warfarin Sliding Scale) 1 each PO ASDIRECTED COUNT INCLUDES THE [facility] Warfarin Sodium (Warfarin 2.5 Mg Tab) 2.5 mg PO ONETIME ONE Stop: 11/14/21 20:16 Last Admin: 11/14/21 21:30 Dose: 2.5 mg Documented by: Comments:: Patient is sitting in bed, awake, alert, cooperative - Exam Quality Assessment: Supplemental Oxygen, DVT Prophylaxis General: Alert, Oriented, Cooperative, No Acute Distress HEENT: EOMI Neck: Supple Lungs: Crackles Cardiovascular: Regular Rate, Regular Rhythm GI/Abdominal Exam: Normal Bowel Sounds, Non-Tender Back Exam: Normal Inspection Extremities: Pedal Edema Peripheral Pulses: 1+: Dorsalis Pedis (L), Dorsalis Pedis (R), 2+: Radial (L), Radial (R) Skin: Warm, Dry Neurological: No New Focal Deficit Psy/Mental Status: Alert, Normal Affect, Normal Mood - Patient Data Lab Results Last 24 hrs: Laboratory Results - last 24 hr 11/14/21 11/14/21 11/15/21 Range/Units 17:00 17:00 06:20 PT 29.2 H 22.4 H (9.0-11.1) sec INR 2.89 H 2.18 H (1.00-1.24) Troponin I 5.8 (4.0-60.3) pg/mL NT-Pro-B Natriuret Pep 913 H (<=450) pg/mL Sepsis Event Note - Evaluation Sepsis Screening Result: No Definite Risk - Focused Exam Vital Signs: Vital Signs Temp Pulse Resp BP BP Pulse Ox 11/15/21 08:33 129/63 11/15/21 04:00 36.6 C 67 16 97/59 L 93 L 11/15/21 00:00 36.7 C 76 16 104/55 L 91 L - Problem List & Annotations (1) Acute exacerbation of congestive heart failure SNOMED Code(s): 589087456, 38269123300988 Code(s): I50.9 - HEART FAILURE, UNSPECIFIED Status: Acute Current Visit: Yes (2) Acute kidney injury SNOMED Code(s): 86878022, 87651827 Code(s): N17.9 - ACUTE KIDNEY FAILURE, UNSPECIFIED Status: Acute Current Visit: No (3) Coronary disease SNOMED Code(s): 48415999 Code(s): I25.10 - ATHSCL HEART DISEASE OF [place] CORONARY ARTERY W/O ANG PCTRS Status: Chronic Current Visit: No (4) Edentulous SNOMED Code(s): 041600298 Code(s): K00.0 - ANODONTIA Status: Chronic Current Visit: No (5) Hypertension SNOMED Code(s): 97991290 Code(s): I10 - ESSENTIAL (PRIMARY) HYPERTENSION Status: Chronic Current Visit: No (6) Hypothyroidism SNOMED Code(s): 25661265 Code(s): E03.9 - HYPOTHYROIDISM, UNSPECIFIED Status: Chronic Current Visit: No (7) Palliative care status SNOMED Code(s): 969016263 Code(s): Z51.5 - ENCOUNTER FOR PALLIATIVE CARE Status: Chronic Current Visit: No (8) UTI (urinary tract infection) SNOMED Code(s): 55169003 Code(s): N39.0 - URINARY TRACT INFECTION, SITE NOT SPECIFIED Status: Acute Current Visit: No - Problem List Review Problem List Initiated/Reviewed/Updated: Yes - My Orders Last 24 Hours: My Active Orders 11/14/21 17:52 Patient Status [ADT] Routine Antiembolic Devices [RC] .Routine Pulse Oximetry [RC] 08 VTE/DVT Education [RC] Click to Edit Vital Signs [RC] 00,04,08,12,16,20 DVT/VTE Prophylaxis Reflex [OM.PC] Per Unit Routine Resuscitation Status Routine 11/14/21 17:53 Fluticasone Propionate [Flonase] 0 gm DEMARCUS BID PRN Loperamide [Imodium] 2 mg PO ASDIRECTED PRN 11/14/21 18:04 OT Evaluation and Treatment [CONS] Routine PT Evaluation and Treatment [CONS] Routine 11/14/21 20:00 Warfarin Sliding Scale [Coumadin Sliding Scale] 1 each PO ASDIRECTED cefTRIAXone [Rocephin] 1 gm IV Q24H 11/14/21 21:00 [place] Carbonate [Eskalith] 300 mg PO BEDTIME QUEtiapine [SEROqueL] 100 mg PO BEDTIME 11/15/21 07:30 Levothyroxine 125 mcg PO ACBREAKFAST 11/15/21 09:00 Anastrozole [Arimidex] 1 mg PO DAILY Enalapril [Vasotec] 10 mg PO DAILY Furosemide [Lasix] 40 mg PO DAILY 11/15/21 11:22 Admission Status [Patient Status] [ADT] Routine 11/15/21 16:00 Warfarin [Coumadin] 2.5 mg PO SuTuWeThSa@1600 11/16/21 06:30 Alendronate [Fosamax] 70 mg PO We@0630 11/16/21 07:43 INR,PT,PROTHROMBIN TIME [COAG] DAILY 11/17/21 07:43 INR,PT,PROTHROMBIN TIME [COAG] DAILY 11/18/21 07:43 INR,PT,PROTHROMBIN TIME [COAG] DAILY 11/18/21 16:00 Warfarin [Coumadin] 5 mg PO MoFr@1600 11/19/21 07:43 INR,PT,PROTHROMBIN TIME [COAG] DAILY 11/20/21 07:43 INR,PT,PROTHROMBIN TIME [COAG] DAILY 11/21/21 07:43 INR,PT,PROTHROMBIN TIME [COAG] DAILY 11/22/21 07:43 INR,PT,PROTHROMBIN TIME [COAG] DAILY - Plan Plan:: 1. Admit patient to inpatient status. Patient has never really fully recovered from her Covid illness. Patient and family state that she just never really got back to her baseline and has continued to get more more weak over the last several days to week or more. Other recommendations based on treatment efficacy and evaluation and recommendations from OT/PT. 2. UTI/acute kidney injury: ceftriaxone 1 g IV daily, encourage oral intake 3. Acute exacerbation of congestive heart failure: Patient will be continued on her home medication including aromatase inhibitor, Lasix, potassium replacement, trend electrolytes monitor patient for signs of increasing congestive heart failure 4. Weakness: Evaluation and treatment with OT/PT 5. DVT prophylaxis: Continue patient's home warfarin 6. Prophylaxis: Heart healthy diet 7. Disposition: Patient has been chronically weak and getting weaker for the last 2+ weeks. If patient does not recover well from this UTI she will likely need some sort of acute rehabilitation and/or shelter placement. Likely 2- 3 or more days
[2021-11-15] MEDS: Warfarin 2.5 MG Tab PO SCH (17:22)
[2021-11-15] MEDS: cefTRIAXone 1 GM Vial IV SCH (20:05)
[2021-11-15] MEDS: QUEtiapine 100 MG Tab PO SCH (20:05)
[2021-11-15] MEDS: Lithium Carbonate 300 MG Cap PO SCH (20:05)
[2021-11-16] MEDS: Levothyroxine 125 MCG Tab PO SCH (06:29)
[2021-11-16] MEDS ORDERED: Alendronate 70 MG Tab PO SCH (06:30)
[2021-11-16] MEDS ORDERED: Potassium Chloride 20 MEQ Tab.ER PO ONE (07:30)
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
[2021-11-16] MEDS: Sodium Chloride 0.9% 1,000 ML IV SCH ×2 (07:42→21:29)
[2021-11-16] MEDS: Anastrozole 1 MG Tab PO SCH (08:16)
[2021-11-16] MEDS: Phytonadione 100 MCG Tab PO SCH (10:26)
[2021-11-16] MEDS: Warfarin 2.5 MG Tab PO SCH (17:09)
[2021-11-16] MEDS: cefTRIAXone 1 GM Vial IV SCH (20:51)
[2021-11-16] MEDS: Lithium Carbonate 300 MG Cap PO SCH (21:29)
[2021-11-17] MEDS: Levothyroxine 125 MCG Tab PO SCH (06:30)
--- NOTE | 2021-11-17 07:13 | PCM.PN ---
- General Info Date of Service: 11/17/21 Admission Dx/Problem (Free Text): Admission Diagnosis/Problem Admission Diagnosis/Problem Weakness Subjective Update: Patient states that she feels better today, she slept well last night, she has no acute complaints Functional Status: Reports: Pain Controlled, Tolerating Diet, Urinating - Review of Systems General: Reports: Weakness HEENT: Reports: No Symptoms Pulmonary: Reports: No Symptoms Cardiovascular: Reports: No Symptoms Gastrointestinal: Reports: No Symptoms Genitourinary: Reports: No Symptoms Musculoskeletal: Reports: No Symptoms Skin: Reports: No Symptoms Neurological: Reports: Difficulty Walking, Weakness Psychiatric: Reports: Confusion - Patient Data Vitals - Most Recent: Last Vital Signs Temp 36.7 C 11/17/21 04:00 Pulse 83 11/17/21 04:00 Resp 18 11/17/21 04:00 BP 104/50 L 11/17/21 04:00 Pulse Ox 96 11/17/21 04:00 Weight - Most Recent: 65.499 kg I&O - Last 24 Hours: Intake & Output 11/16/21 11/17/21 11/17/21 22:59 06:59 14:59 Intake Total 785 721 Balance 785 721 Lab Results Last 24 Hours: Laboratory Results - last 24 hr 11/16/21 11/16/21 11/16/21 Range/Units 06:40 06:40 06:40 WBC (3.0-10.3) x10-3/uL RBC (3.60-5.20) x10(6)uL Hgb (11.4-15.5) g/dL Hct (34.2-48.2) % MCV (76.7-100.5) fL MCH (23.9-33.9) pg MCHC (31.9-34.8) g/dL RDW (12.3-16.5) % Plt Count (151-488) x10(3)uL MPV (7.1-12.4) fL Neut % (Auto) (30.8-76.2) % Lymph % (Auto) (18.4-52.1) % [place] % (Auto) (4.4-15.7) % Eos % (Auto) (0.6-8.1) % Baso % (Auto) (0.2-1.5) % Neut # (Auto) (1.5-6.3) x10-3/uL Lymph # (Auto) (1.0-4.4) x10-3/uL [place] # (Auto) (0.3-1.0) x10-3/uL Eos # (Auto) (0.0-0.8) x10-3/uL Baso # (Auto) (0.0-0.1) x10-3/uL PT 24.9 H (9.0-11.1) sec INR 2.45 H (1.00-1.24) Sodium (135-145) mmol/L Potassium (3.5-5.3) mmol/L Chloride (100-110) mmol/L Carbon Dioxide (21-32) mmol/L BUN (7-18) mg/dL Creatinine (0.55-1.02) mg/dL Est Cr Clr Drug Dosing mL/min Estimated GFR (MDRD) (>60) BUN/Creatinine Ratio (9-20) Glucose (80-116) mg/dL Calcium (8.6-10.2) mg/dL Magnesium 2.1 (1.8-2.5) mg/dL NT-Pro-B Natriuret Pep 656 H (<=450) pg/mL 11/17/21 11/17/21 11/17/21 Range/Units 06:05 06:05 06:05 WBC 6.9 (3.0-10.3) x10-3/uL RBC 3.18 L (3.60-5.20) x10(6)uL Hgb 10.2 L (11.4-15.5) g/dL Hct 30.9 L (34.2-48.2) % MCV 97.3 (76.7-100.5) fL MCH 32.2 (23.9-33.9) pg MCHC 33.1 (31.9-34.8) g/dL RDW 13.4 (12.3-16.5) % Plt Count 397 (151-488) x10(3)uL MPV 7.3 (7.1-12.4) fL Neut % (Auto) 76.0 (30.8-76.2) % Lymph % (Auto) 7.8 L (18.4-52.1) % [place] % (Auto) 7.9 (4.4-15.7) % Eos % (Auto) 5.2 (0.6-8.1) % Baso % (Auto) 3.1 H (0.2-1.5) % Neut # (Auto) 5.3 (1.5-6.3) x10-3/uL Lymph # (Auto) 0.5 L (1.0-4.4) x10-3/uL [place] # (Auto) 0.5 (0.3-1.0) x10-3/uL Eos # (Auto) 0.4 (0.0-0.8) x10-3/uL Baso # (Auto) 0.2 H (0.0-0.1) x10-3/uL PT 22.5 H (9.0-11.1) sec INR 2.19 H (1.00-1.24) Sodium 142 (135-145) mmol/L Potassium 3.2 L (3.5-5.3) mmol/L Chloride 110 D (100-110) mmol/L Carbon Dioxide 28 (21-32) mmol/L BUN 16 (7-18) mg/dL Creatinine 1.1 H (0.55-1.02) mg/dL Est Cr Clr Drug Dosing 29.79 mL/min Estimated GFR (MDRD) 48 L (>60) BUN/Creatinine Ratio 14.5 (9-20) Glucose 93 (80-116) mg/dL Calcium 9.3 (8.6-10.2) mg/dL Magnesium (1.8-2.5) mg/dL NT-Pro-B Natriuret Pep (<=450) pg/mL Med Orders - Current: Current Medications Alendronate Sodium (Alendronate 70 Mg Tab) 70 mg PO We@0630 [facility] Last Admin: 11/16/21 06:29 Dose: 70 mg Documented by: Anastrozole (Anastrozole 1 Mg Tab) 1 mg PO DAILY [facility] Last Admin: 11/16/21 08:16 Dose: 1 mg Documented by: Ceftriaxone Sodium (Ceftriaxone 1 Gm Vial) 1 gm IV Q24H [facility] Last Admin: 11/16/21 20:51 Dose: 1 gm Documented by: Enalapril Maleate (Enalapril 10 Mg Tab) 10 mg PO DAILY [facility] Last Admin: 11/16/21 08:23 Dose: Not Given Documented by: Fluticasone Propionate (Fluticasone Propionate Nasal [place] 16 Gm Bottle) 0 gm DEMARCUS BID PRN PRN Reason: Allergies Sodium Chloride (Normal Saline) 1,000 mls @ 75 mls/hr IV ASDIRECTED [facility] Last Admin: 11/16/21 21:29 Dose: 75 mls/hr Documented by: Levothyroxine Sodium (Levothyroxine 125 Mcg Tab) 125 mcg PO ACBREAKFAST [facility] Last Admin: 11/17/21 06:30 Dose: 125 mcg Documented by: [place] Carbonate ([place] Carbonate 300 Mg Cap) 300 mg PO BEDTIME [facility] Last Admin: 11/16/21 21:29 Dose: 300 mg Documented by: Loperamide HCl (Loperamide 2 Mg Cap) 2 mg PO ASDIRECTED PRN PRN Reason: Diarrhea Phytonadione (Phytonadione 100 Mcg Tab) 100 mcg PO DAILY [facility] Last Admin: 11/16/21 10:26 Dose: 100 mcg Documented by: Quetiapine Fumarate (Quetiapine 50 Mg Tab) 50 mg PO BEDTIME [facility] Last Admin: 11/16/21 21:29 Dose: 50 mg Documented by: Sodium Chloride (Sodium Chloride 0.9% 10 Ml Syringe) 10 ml FLUSH ASDIRECTED PRN PRN Reason: Keep Vein Open Last Admin: 11/14/21 21:30 Dose: 10 ml Documented by: Warfarin Sodium (Warfarin Sliding Scale) 1 each PO ASDIRECTED [facility] Warfarin Sodium (Warfarin 2.5 Mg Tab) 2.5 mg PO SuTuWeThSa@1600 [facility] Last Admin: 11/16/21 17:09 Dose: 2.5 mg Documented by: Warfarin Sodium (Warfarin 5 Mg Tab) 5 mg PO MoFr@1600 [facility] Discontinued Medications Furosemide (Furosemide 40 Mg Tab) 40 mg PO DAILY [facility] Last Admin: 11/15/21 08:32 Dose: 40 mg Documented by: Sodium Chloride (Normal Saline) 1,000 mls @ 100 mls/hr IV ASDIRECTED [facility] Last Admin: 11/14/21 18:30 Dose: 100 mls/hr Documented by: Ceftriaxone Sodium 1 gm/ (Sodium Chloride) 50 mls @ 200 mls/hr IV Q24H [facility] Last Admin: 11/15/21 01:02 Dose: Not Given Documented by: Potassium Chloride (Potassium Chloride 20 Meq Tab.Er) 20 meq PO ONETIME ONE Stop: 11/16/21 07:31 Last Admin: 11/16/21 08:15 Dose: 20 meq Documented by: Quetiapine Fumarate (Quetiapine 100 Mg Tab) 100 mg PO BEDTIME [facility] Last Admin: 11/15/21 20:05 Dose: 100 mg Documented by: Warfarin Sodium (Warfarin Sliding Scale) 1 each PO ASDIRECTED [facility] Warfarin Sodium (Warfarin Sliding Scale) 1 each PO ASDIRECTED [facility] Warfarin Sodium (Warfarin 2.5 Mg Tab) 2.5 mg PO ONETIME ONE Stop: 11/14/21 20:16 Last Admin: 11/14/21 21:30 Dose: 2.5 mg Documented by: Comments:: Patient was lying in the bed supine, with her legs propped up on pillows, awake, alert, cooperative - Exam Quality Assessment: Supplemental Oxygen, DVT Prophylaxis General: Alert, Cooperative, No Acute Distress, Lethargic HEENT: EOMI Neck: Supple Lungs: Crackles Cardiovascular: Regular Rate, Murmurs GI/Abdominal Exam: Soft, Non-Tender, Other (Active bowel sounds, no tympanic sounds) Back Exam: Normal Inspection Extremities: Pedal Edema Peripheral Pulses: 1+: Dorsalis Pedis (L), Dorsalis Pedis (R), 2+: Radial (L), Radial (R) Skin: Warm, Dry Neurological: No New Focal Deficit Psy/Mental Status: Alert, Labile Mood, Anxious - Patient Data Lab Results Last 24 hrs: Laboratory Results - last 24 hr 11/16/21 11/16/21 11/16/21 Range/Units 06:40 06:40 06:40 WBC (3.0-10.3) x10-3/uL RBC (3.60-5.20) x10(6)uL Hgb (11.4-15.5) g/dL Hct (34.2-48.2) % MCV (76.7-100.5) fL MCH (23.9-33.9) pg MCHC (31.9-34.8) g/dL RDW (12.3-16.5) % Plt Count (151-488) x10(3)uL MPV (7.1-12.4) fL Neut % (Auto) (30.8-76.2) % Lymph % (Auto) (18.4-52.1) % [place] % (Auto) (4.4-15.7) % Eos % (Auto) (0.6-8.1) % Baso % (Auto) (0.2-1.5) % Neut # (Auto) (1.5-6.3) x10-3/uL Lymph # (Auto) (1.0-4.4) x10-3/uL [place] # (Auto) (0.3-1.0) x10-3/uL Eos # (Auto) (0.0-0.8) x10-3/uL Baso # (Auto) (0.0-0.1) x10-3/uL PT 24.9 H (9.0-11.1) sec INR 2.45 H (1.00-1.24) Sodium (135-145) mmol/L Potassium (3.5-5.3) mmol/L Chloride (100-110) mmol/L Carbon Dioxide (21-32) mmol/L BUN (7-18) mg/dL Creatinine (0.55-1.02) mg/dL Est Cr Clr Drug Dosing mL/min Estimated GFR (MDRD) (>60) BUN/Creatinine Ratio (9-20) Glucose (80-116) mg/dL Calcium (8.6-10.2) mg/dL Magnesium 2.1 (1.8-2.5) mg/dL NT-Pro-B Natriuret Pep 656 H (<=450) pg/mL 11/17/21 11/17/21 11/17/21 Range/Units 06:05 06:05 06:05 WBC 6.9 (3.0-10.3) x10-3/uL RBC 3.18 L (3.60-5.20) x10(6)uL Hgb 10.2 L (11.4-15.5) g/dL Hct 30.9 L (34.2-48.2) % MCV 97.3 (76.7-100.5) fL MCH 32.2 (23.9-33.9) pg MCHC 33.1 (31.9-34.8) g/dL RDW 13.4 (12.3-16.5) % Plt Count 397 (151-488) x10(3)uL MPV 7.3 (7.1-12.4) fL Neut % (Auto) 76.0 (30.8-76.2) % Lymph % (Auto) 7.8 L (18.4-52.1) % [place] % (Auto) 7.9 (4.4-15.7) % Eos % (Auto) 5.2 (0.6-8.1) % Baso % (Auto) 3.1 H (0.2-1.5) % Neut # (Auto) 5.3 (1.5-6.3) x10-3/uL Lymph # (Auto) 0.5 L (1.0-4.4) x10-3/uL [place] # (Auto) 0.5 (0.3-1.0) x10-3/uL Eos # (Auto) 0.4 (0.0-0.8) x10-3/uL Baso # (Auto) 0.2 H (0.0-0.1) x10-3/uL PT 22.5 H (9.0-11.1) sec INR 2.19 H (1.00-1.24) Sodium 142 (135-145) mmol/L Potassium 3.2 L (3.5-5.3) mmol/L Chloride 110 D (100-110) mmol/L Carbon Dioxide 28 (21-32) mmol/L BUN 16 (7-18) mg/dL Creatinine 1.1 H (0.55-1.02) mg/dL Est Cr Clr Drug Dosing 29.79 mL/min Estimated GFR (MDRD) 48 L (>60) BUN/Creatinine Ratio 14.5 (9-20) Glucose 93 (80-116) mg/dL Calcium 9.3 (8.6-10.2) mg/dL Magnesium (1.8-2.5) mg/dL NT-Pro-B Natriuret Pep (<=450) pg/mL Result Diagrams: 11/17/21 06:05 11/17/21 06:05 Sepsis Event Note - Evaluation Sepsis Screening Result: No Definite Risk - Focused Exam Vital Signs: Vital Signs Temp Pulse Resp BP Pulse Ox 11/17/21 04:00 36.7 C 83 18 104/50 L 96 11/17/21 00:00 36.9 C 82 16 120/63 94 L - Problem List & Annotations (1) Acute exacerbation of congestive heart failure SNOMED Code(s): 641699365, 84838463471878 Code(s): I50.9 - HEART FAILURE, UNSPECIFIED Status: Acute Current Visit: Yes (2) Acute kidney injury SNOMED Code(s): 83149702, 48986569 Code(s): N17.9 - ACUTE KIDNEY FAILURE, UNSPECIFIED Status: Acute Current Visit: No (3) Coronary disease SNOMED Code(s): 47731808 Code(s): I25.10 - ATHSCL HEART DISEASE OF [place] CORONARY ARTERY W/O ANG PCTRS Status: Chronic Current Visit: No (4) Edentulous SNOMED Code(s): 725941409 Code(s): K00.0 - ANODONTIA Status: Chronic Current Visit: No (5) Hypertension SNOMED Code(s): 45055856 Code(s): I10 - ESSENTIAL (PRIMARY) HYPERTENSION Status: Chronic Current Visit: No (6) Hypothyroidism SNOMED Code(s): 69913931 Code(s): E03.9 - HYPOTHYROIDISM, UNSPECIFIED Status: Chronic Current Visit: No (7) Palliative care status SNOMED Code(s): 294914871 Code(s): Z51.5 - ENCOUNTER FOR PALLIATIVE CARE Status: Chronic Current Visit: No (8) UTI (urinary tract infection) SNOMED Code(s): 18841084 Code(s): N39.0 - URINARY TRACT INFECTION, SITE NOT SPECIFIED Status: Acute Current Visit: No (9) Hypokalemia SNOMED Code(s): 59704302 Code(s): E87.6 - HYPOKALEMIA Status: Acute Current Visit: Yes - Problem List Review Problem List Initiated/Reviewed/Updated: Yes - My Orders Last 24 Hours: My Active Orders 11/16/21 06:30 Alendronate [Fosamax] 70 mg PO We@62911/16/21 07:30 Sodium Chloride 0.9% [Normal Saline] 1,000 ml IV ASDIRECTED 11/16/21 07:39 Intake and Output Strict [RC] 06,14,22 11/16/21 07:46 Supplement (Dietary) [Dietary Supplements] [RC] WITHMEALSANDBED 11/16/21 09:00 Phytonadione [Vitamin K] 100 mcg PO DAILY 11/16/21 11:20 LITHIUM (ESKALITH(R)), SERUM Urgent 11/16/21 21:00 QUEtiapine [SEROquel] 50 mg PO BEDTIME 11/18/21 07:43 INR,PT,PROTHROMBIN TIME [COAG] DAILY 11/18/21 16:00 Warfarin [Coumadin] 5 mg PO MoFr@1600 11/19/21 07:43 INR,PT,PROTHROMBIN TIME [COAG] DAILY 11/20/21 07:43 INR,PT,PROTHROMBIN TIME [COAG] DAILY 11/21/21 07:43 INR,PT,PROTHROMBIN TIME [COAG] DAILY 11/22/21 07:43 INR,PT,PROTHROMBIN TIME [COAG] DAILY - Plan Plan:: 1. Admit patient to inpatient status. Patient has never really fully recovered from her Covid illness. Patient and family state that she just never really got back to her baseline and has continued to get more more weak over the last several days to week or more. Other recommendations based on treatment efficacy and evaluation and recommendations from OT/PT. I did reduce her Seroquel from 100 mg to 50 mg last night. This may have helped or just possible improvement may be a result of better renal function. 2. UTI/acute kidney injury: ceftriaxone 1 g IV daily, encourage oral intake. Reading improved to 1.1 this morning, reduce fluids to KVO, again, encourage oral intake 3. Acute exacerbation of congestive heart failure: BNP improved but we had to restart fluids due to kidney injury. We will get a BNP tomorrow and restart Lasix today. 4. Weakness: Evaluation and treatment with OT/PT 5. DVT prophylaxis: Continue patient's home warfarin 6. GI Prophylaxis: Heart healthy diet 7. Disposition: Patient has been chronically weak and getting weaker for the last 2+ weeks. If patient does not recover well from this UTI she will likely need some sort of acute rehabilitation and/or [place] [facility] placement. Patient seems to have improved cognition this morning and seems to be a little stronger. We will continue to monitor for congestive heart failure and resolution of UTI. Likely 1 to 2 days
[2021-11-17] MEDS: Anastrozole 1 MG Tab PO SCH (09:01)
[2021-11-17] MEDS: Phytonadione 100 MCG Tab PO SCH (09:01)
[2021-11-17] MEDS: Amoxicillin/Clavulanate K 875-125 MG Tab PO SCH ×2 (10:53→21:03)
--- NOTE | 2021-11-17 11:53 | EDM.PDOC ---
ED HPI GENERAL MEDICAL PROBLEM - General Chief Complaint: General Stated Complaint: WEAK Time Seen by Provider: 11/14/21 16:30 Source of Information: Reports: Patient, Family History Limitations: Reports: No Limitations - History of Present Illness INITIAL COMMENTS - FREE TEXT/NARRATIVE: Patient presented to the Ed because of weakness, dyspnea since she was diagnose with Covid on 10/23/21. She was then hospitalized and discharged on 10/27/21. Since then she was her health is gradually deteriorating. there is no fever, chills, cough/cold. No N/V/D but has poor oral intake. DENIES ANY PAIN WHEN ASKED AT PRESENT TIME. Pain Score (Numeric/FACES): 0 - Related Data Allergies Allergy/AdvReac Type Severity Reaction Status Date / Time No Known Allergies Allergy Verified 02/24/19 09:02 Home Meds: Home Meds Barrett Carbonate 300 mg PO BEDTIME 02/16/18 [History] Potassium Chloride 10 meq PO DAILY 02/16/18 [History] Alendronate Sodium 70 mg PO WE 10/20/18 [History] Anastrozole [Arimidex] 1 mg PO DAILY 11/07/19 [History] Calcium Carbonate/Vitamin D3 [Caltrate 600+D 1500 MG-400 Units] 1 tab PO BIDMEALS 11/07/19 [History] Phytonadione [Vitamin K] 100 mcg PO DAILY 11/07/19 [History] QUEtiapine Fumarate [Quetiapine Fumarate] 100 mg PO BEDTIME 11/07/19 [History] Fluticasone Propionate [Flonase] 2 spray DEMARCUS BID PRN 10/23/21 [History] Furosemide 40 mg PO DAILY 10/24/21 [History] Levothyroxine 125 mcg PO DAILY 10/24/21 [History] cephALEXin [Keflex] 500 mg PO Q8H 7 Days #21 cap 11/13/21 [Rx] Cyanocobalamin (Vitamin B-12) [Vitamin B-12] 1,000 mcg PO DAILY 11/14/21 [History] Enalapril [Vasotec] 10 mg PO DAILY 11/14/21 [History] Loperamide [Imodium] 2 mg PO ASDIRECTED PRN 11/14/21 [History] Multivitamin/Iron/Folic Acid [Certavite-Antioxidant Tablet] 1 tab PO DAILY 11/14/21 [History] Warfarin [Coumadin] 2.5 mg PO SUTUWETHSA@1600 11/14/21 [History] Warfarin [Coumadin] 5 mg PO MOFR@1600 11/14/21 [History] Past Medical History HEENT History: Reports: Allergic Rhinitis, Cataract, Glaucoma, Impaired Vision, Other (See Below) Other HEENT History: sialoadenitis Cardiovascular History: Reports: Heart Failure, High Cholesterol, Hypertension, Other (See Below) Other Cardiovascular History: varices Respiratory History: Reports: None Gastrointestinal History: Reports: None, Diverticulosis, GERD BULK FOLDER History: Reports: Other BULK FOLDER History: Musculoskeletal History: Reports: Arthritis, Other (See Below) Neurological History: Reports: None Psychiatric History: Reports: Anxiety, Bipolar, Depression Endocrine/Metabolic History: Reports: Hypothyroidism, Other (See Below) Other Endocrine/Metabolic History: vitamin b12 deficiency Hematologic History: Reports: Anticoagulation Therapy Oncologic (Cancer) History: Reports: Breast Dermatologic History: Reports: None - Infectious Disease History Infectious Disease History: Reports: Chicken Pox, Measles, Mumps, Novel Coronavirus Other Infectious Disease History: Unsure if she had Measles or Rubella as a child. - Past Surgical History HEENT Surgical History: Reports: Tonsillectomy Cardiovascular Surgical History: Reports: None Respiratory Surgical History: Reports: None GI Surgical History: Reports: Cholecystectomy Female Surgical History: Reports: Section, Mastectomy Oncologic Surgical History: Reports: Mastectomy Other Oncologic Surgeries/Procedures: Right mastectomy 18 years ago. May need left breast surgery for discovery of lumps. Social & Family History - Family History Family Medical History: No Pertinent Family History - Tobacco Use Tobacco Use Status *Q: Never Tobacco User Second Hand Smoke Exposure: No - Caffeine Use Caffeine Use: Reports: Coffee Caffeine Use Comment: tea and decaf coffee - Recreational Drug Use Recreational Drug Use: No - Living Situation & Occupation Living situation: Reports: Assisted Living Occupation: Retired ED ROS GENERAL - Review of Systems Review Of Systems: See Below Constitutional: Reports: Weakness HEENT: Reports: No Symptoms Respiratory: Reports: No Symptoms Cardiovascular: Reports: No Symptoms Endocrine: Reports: No Symptoms GI/Abdominal: Reports: No Symptoms : Reports: No Symptoms Musculoskeletal: Reports: No Symptoms Skin: Reports: No Symptoms Neurological: Reports: Weakness Psychiatric: Reports: No Symptoms ED EXAM, GENERAL - Physical Exam Exam: See Below Exam Limited By: No Limitations General Appearance: Alert, No Apparent Distress Ears: Normal External Exam, Normal Canal Nose: Normal Inspection, Normal Mucosa, No Blood Throat/Mouth: Normal Inspection, Normal Lips, Normal Teeth Head: Atraumatic, Normocephalic Neck: Normal Inspection, Supple, Non-Tender, Full Range of Motion Respiratory/Chest: No Respiratory Distress, Lungs Clear, Normal Breath Sounds, No Accessory Muscle Use, Chest Non-Tender Cardiovascular: Normal Peripheral Pulses, Regular Rate, Rhythm, No Edema, No Gallop, No JVD, No Murmur, No Rub Peripheral Pulses: 1+: Dorsalis Pedis (L), Dorsalis Pedis (R), 2+: Radial (L), Radial (R) GI/Abdominal: Soft, Non-Tender, Other (Active bowel sounds, no tympanic sounds) Back Exam: Normal Inspection Extremities: Pedal Edema #1 Interpretation EKG Date: 11/14/21 Time: 17:11 Rhythm: NSR Rate (Beats/Min): 66 Cerulean: Normal P-Wave: Present QRS: Normal ST-T: Normal QT: Normal [place]/PQ Interval: 199 Comparison: No Change EKG Interpretation Comments: NSR old anterior and inferior infarct Course - Vital Signs Text/Narrative:: Lab/EKG result was reviewed and discussed with patient Last Recorded V/S: Last Vital Signs Temp 37.4 C 11/17/21 07:45 Pulse 89 11/17/21 07:45 Resp 18 11/17/21 07:45 BP 124/66 11/17/21 09:01 Pulse Ox 91 L 11/17/21 07:45 - Orders/Labs/Meds Orders: Medication Orders Alendronate Sodium (Alendronate 70 Mg Tab) 70 mg PO We@0630 [facility] Last Admin: 11/16/21 06:29 Dose: 70 mg Documented by: COURTNEY Amoxicillin/Clavulanate Potassium (Amoxicillin/Clavulanate K 875-125 Mg Tab) 1 tab PO Q12H [facility] Stop: 11/19/21 23:00 Last Admin: 11/17/21 10:53 Dose: 1 tab Documented by: SHANT Anastrozole (Anastrozole 1 Mg Tab) 1 mg PO DAILY [facility] Last Admin: 11/17/21 09:01 Dose: 1 mg Documented by: Admin: 11/16/21 08:16 Dose: 1 mg Documented by: [id number] Admin: 11/15/21 08:32 Dose: 1 mg Documented by: [email or web address] Enalapril Maleate (Enalapril 10 Mg Tab) 10 mg PO DAILY [facility] Last Admin: 11/17/21 09:01 Dose: 10 mg Documented by: Admin: 11/16/21 08:23 Dose: Not Given Documented by: [id number] Admin: 11/15/21 08:33 Dose: 10 mg Documented by: [id number] Fluticasone Propionate (Fluticasone Propionate Nasal [place] 16 Gm Bottle) 0 gm DEMARCUS BID PRN PRN Reason: Allergies Sodium Chloride (Normal Saline) 1,000 mls @ 0 mls/hr IV ASDIRECTED [facility] Last Infusion: 11/17/21 08:59 Dose: 30 mls/hr Documented by: Admin: 11/16/21 21:29 Dose: 75 mls/hr Documented by: Infusion: 11/16/21 21:02 Dose: 75 mls/hr Documented by: Admin: 11/16/21 07:42 Dose: 75 mls/hr Documented by: [email or web address] Levothyroxine Sodium (Levothyroxine 125 Mcg Tab) 125 mcg PO ACBREAKFAST [facility] Last Admin: 11/17/21 06:30 Dose: 125 mcg Documented by: Admin: 11/16/21 06:29 Dose: 125 mcg Documented by: Admin: 11/15/21 08:32 Dose: 125 mcg Documented by: [id number] Barrett Carbonate (Barrett Carbonate 300 Mg Cap) 300 mg PO BEDTIME [facility] Last Admin: 11/16/21 21:29 Dose: 300 mg Documented by: Admin: 11/15/21 20:05 Dose: 300 mg Documented by: Admin: 11/14/21 21:53 Dose: 300 mg Documented by: JANNETH Loperamide HCl (Loperamide 2 Mg Cap) 2 mg PO ASDIRECTED PRN PRN Reason: Diarrhea Phytonadione (Phytonadione 100 Mcg Tab) 100 mcg PO DAILY [facility] Last Admin: 11/17/21 09:01 Dose: 100 mcg Documented by: Admin: 11/16/21 10:26 Dose: 100 mcg Documented by: [email or web address] Quetiapine Fumarate (Quetiapine 50 Mg Tab) 50 mg PO BEDTIME [facility] Last Admin: 11/16/21 21:29 Dose: 50 mg Documented by: ANDEING Sodium Chloride (Sodium Chloride 0.9% 10 Ml Syringe) 10 ml FLUSH ASDIRECTED PRN PRN Reason: Keep Vein Open Last Admin: 11/14/21 21:30 Dose: 10 ml Documented by: Admin: 11/14/21 21:00 Dose: 10 ml Documented by: JANNETH Tuberculin PPD (Tuberculin, Ppd 5 Units/0.1 Ml 1 Ml Mdv) 5 unit IDERM ONETIME ONE Stop: 11/21/21 08:01 Warfarin Sodium (Warfarin Sliding Scale) 1 each PO ASDIRECTED [facility] Warfarin Sodium (Warfarin 2.5 Mg Tab) 2.5 mg PO SuTuWeThSa@1600 [facility] Last Admin: 11/16/21 17:09 Dose: 2.5 mg Documented by: [id number] Admin: 11/15/21 17:22 Dose: 2.5 mg Documented by: [id number] Warfarin Sodium (Warfarin 5 Mg Tab) 5 mg PO MoFr@1600 [facility] Labs: Laboratory Tests 11/14/21 11/14/21 Range/Units 17:00 17:00 PT 29.2 H (9.0-11.1) sec INR 2.89 H (1.00-1.24) Troponin I 5.8 (4.0-60.3) pg/mL NT-Pro-B Natriuret Pep 913 H (<=450) pg/mL Meds: Medications Generic Name Dose Route Start Last Admin Trade Name Freq PRN Reason Stop Dose Admin Alendronate Sodium 70 mg 11/16/21 06:30 11/16/21 06:29 Alendronate 70 Mg Tab PO 70 mg We@0630 [facility] Administration Amoxicillin/Clavulanate Potassium 1 tab 11/17/21 10:00 11/17/21 10:53 Amoxicillin/Clavulanate K 875-125 Mg Tab PO 11/19/21 23:00 1 tab Q12H ARYAN Administration Anastrozole 1 mg 11/15/21 09:00 11/17/21 09:01 Anastrozole 1 Mg Tab PO 1 mg DAILY ARYAN Administration Enalapril Maleate 10 mg 11/15/21 09:00 11/17/21 09:01 Enalapril 10 Mg Tab PO 10 mg DAILY ARYAN Administration Fluticasone Propionate 0 gm 11/14/21 17:53 Fluticasone Propionate Nasal [place] 16 Gm Bottle DEMARCUS BID PRN Allergies Sodium Chloride 1,000 mls @ 0 mls/hr 11/16/21 07:30 11/17/21 08:59 Normal Saline IV 30 mls/hr ASDIRECTED ARYAN Infusion KVO Levothyroxine Sodium 125 mcg 11/15/21 07:30 11/17/21 06:30 Levothyroxine 125 Mcg Tab PO 125 mcg ACBREAKFAST ARYAN Administration Barrett Carbonate 300 mg 11/14/21 21:00 11/16/21 21:29 Barrett Carbonate 300 Mg Cap PO 300 mg BEDTIME ARYAN Administration Loperamide HCl 2 mg 11/14/21 17:53 Loperamide 2 Mg Cap PO ASDIRECTED PRN Diarrhea Phytonadione 100 mcg 11/16/21 09:00 11/17/21 09:01 Phytonadione 100 Mcg Tab PO 100 mcg DAILY ARYAN Administration Quetiapine Fumarate 50 mg 11/16/21 21:00 11/16/21 21:29 Quetiapine 50 Mg Tab PO 50 mg BEDTIME ARYAN Administration Sodium Chloride 10 ml 11/14/21 16:31 11/14/21 21:30 Sodium Chloride 0.9% 10 Ml Syringe FLUSH 10 ml ASDIRECTED PRN Administration Keep Vein Open Tuberculin PPD 5 unit 11/21/21 08:00 Tuberculin, Ppd 5 Units/0.1 Ml 1 Ml Mdv IDERM 11/21/21 08:01 ONETIME ONE Warfarin Sodium 1 each 11/14/21 20:00 Warfarin Sliding Scale PO ASDIRECTED ARYAN Warfarin Sodium 2.5 mg 11/15/21 16:00 11/16/21 17:09 Warfarin 2.5 Mg Tab PO 2.5 mg SuTuWeThSa@1600 ARYAN Administration Warfarin Sodium 5 mg 11/18/21 16:00 Warfarin 5 Mg Tab PO MoFr@1600 [facility] Discontinued Medications Generic Name Dose Route Start Last Admin Trade Name Freq PRN Reason Stop Dose Admin Ceftriaxone Sodium 1 gm 11/14/21 20:00 11/16/21 20:51 Ceftriaxone 1 Gm Vial IV 1 gm Q24H ARYAN Administration Furosemide 40 mg 11/15/21 09:00 11/15/21 08:32 Furosemide 40 Mg Tab PO 40 mg DAILY ARYAN Administration Sodium Chloride 1,000 mls @ 100 mls/hr 11/14/21 16:45 11/14/21 18:30 Normal Saline IV 100 mls/hr ASDIRECTED ARYAN Administration Ceftriaxone Sodium 1 gm/ 50 mls @ 200 mls/hr 11/14/21 18:15 11/15/21 01:02 Sodium Chloride IV Not Given Q24H ARYAN Potassium Chloride 20 meq 11/16/21 07:30 11/16/21 08:15 Potassium Chloride 20 Meq Tab.Er PO 11/16/21 07:31 20 meq ONETIME ONE Administration Quetiapine Fumarate 100 mg 11/14/21 21:00 11/15/21 20:05 Quetiapine 100 Mg Tab PO 100 mg BEDTIME ARYAN Administration Warfarin Sodium 1 each 11/14/21 18:00 Warfarin Sliding Scale PO ASDIRECTED ARYAN Warfarin Sodium 1 each 11/14/21 20:00 Warfarin Sliding Scale PO ASDIRECTED ARYAN Warfarin Sodium 2.5 mg 11/14/21 20:15 11/14/21 21:30 Warfarin 2.5 Mg Tab PO 11/14/21 20:16 2.5 mg ONETIME ONE Administration Departure - Departure Time of Disposition: 17:35 Disposition: Admitted As Inpatient 67 Condition: Good Clinical Impression: CHF exacerbation, HTN (hypertension) - Discharge Information Sepsis Event Note (ED) - Evaluation Sepsis Screening Result: No Definite Risk
[2021-11-17] MEDS: Sodium Chloride 0.9% 1,000 ML IV SCH (13:45)
[2021-11-17] MEDS: Warfarin 2.5 MG Tab PO SCH (16:50)
[2021-11-18] MEDS: Levothyroxine 125 MCG Tab PO SCH (06:40)
[2021-11-18] MEDS: Anastrozole 1 MG Tab PO SCH (09:27)
[2021-11-18] MEDS: Phytonadione 100 MCG Tab PO SCH (09:27)
[2021-11-18] MEDS: Amoxicillin/Clavulanate K 875-125 MG Tab PO SCH ×2 (09:28→21:00)
[2021-11-18] MEDS ORDERED: Potassium Chloride 20 MEQ Tab.ER PO ONE (09:53)
--- NOTE | 2021-11-18 09:53 | PCM.PN ---
- General Info Date of Service: 11/18/21 Subjective Update: Patient states that she feels better today, she slept well last night, she has no acute complaints. Denies dysuria. Functional Status: Reports: Pain Controlled - Review of Systems HEENT: Reports: No Symptoms Pulmonary: Reports: No Symptoms Cardiovascular: Reports: No Symptoms - Patient Data Vitals - Most Recent: Last Vital Signs Temp 99.7 F 11/18/21 08:00 Pulse 88 11/18/21 08:00 Resp 18 11/18/21 08:00 BP 147/86 H 11/18/21 09:27 Pulse Ox 94 L 11/18/21 08:00 Weight - Most Recent: 66.877 kg I&O - Last 24 Hours: Intake & Output 11/17/21 11/18/21 11/18/21 22:59 06:59 14:59 Intake Total 223 260 Balance 223 260 Lab Results Last 24 Hours: Laboratory Results - last 24 hr 11/18/21 11/18/21 11/18/21 Range/Units 06:10 06:10 06:10 PT 18.6 H (9.0-11.1) sec INR 1.79 H (1.00-1.24) Sodium 141 (135-145) mmol/L Potassium 3.2 L (3.5-5.3) mmol/L Chloride 109 (100-110) mmol/L Carbon Dioxide 26 (21-32) mmol/L BUN 9 (7-18) mg/dL Creatinine 0.9 (0.55-1.02) mg/dL Est Cr Clr Drug Dosing 36.41 mL/min Estimated GFR (MDRD) > 60 (>60) BUN/Creatinine Ratio 10.0 (9-20) Glucose 92 (80-116) mg/dL Calcium 9.2 (8.6-10.2) mg/dL NT-Pro-B Natriuret Pep 1004 H* (<=450) pg/mL Med Orders - Current: Current Medications Alendronate Sodium (Alendronate 70 Mg Tab) 70 mg PO We@0630 [facility] Last Admin: 11/16/21 06:29 Dose: 70 mg Documented by: Amoxicillin/Clavulanate Potassium (Amoxicillin/Clavulanate K 875-125 Mg Tab) 1 tab PO Q12H [facility] Stop: 11/19/21 23:00 Last Admin: 11/18/21 09:28 Dose: 1 tab Documented by: Anastrozole (Anastrozole 1 Mg Tab) 1 mg PO DAILY [facility] Last Admin: 11/18/21 09:27 Dose: 1 mg Documented by: Enalapril Maleate (Enalapril 10 Mg Tab) 10 mg PO DAILY [facility] Last Admin: 11/18/21 09:27 Dose: 10 mg Documented by: Fluticasone Propionate (Fluticasone Propionate Nasal [place] 16 Gm Bottle) 0 gm DEMARCUS BID PRN PRN Reason: Allergies Levothyroxine Sodium (Levothyroxine 125 Mcg Tab) 125 mcg PO ACBREAKFAST [facility] Last Admin: 11/18/21 06:40 Dose: 125 mcg Documented by: Drew Carbonate (Drew Carbonate 300 Mg Cap) 300 mg PO BEDTIME [facility] Last Admin: 11/16/21 21:29 Dose: 300 mg Documented by: Loperamide HCl (Loperamide 2 Mg Cap) 2 mg PO ASDIRECTED PRN PRN Reason: Diarrhea Phytonadione (Phytonadione 100 Mcg Tab) 100 mcg PO DAILY [facility] Last Admin: 11/18/21 09:27 Dose: 100 mcg Documented by: Quetiapine Fumarate (Quetiapine 50 Mg Tab) 50 mg PO BEDTIME [facility] Last Admin: 11/17/21 20:54 Dose: 50 mg Documented by: Sodium Chloride (Sodium Chloride 0.9% 10 Ml Syringe) 10 ml FLUSH ASDIRECTED PRN PRN Reason: Keep Vein Open Last Admin: 11/14/21 21:30 Dose: 10 ml Documented by: Tuberculin PPD (Tuberculin, Ppd 5 Units/0.1 Ml 1 Ml Mdv) 5 unit IDERM ONETIME ONE Stop: 11/21/21 08:01 Warfarin Sodium (Warfarin Sliding Scale) 1 each PO ASDIRECTED [facility] Warfarin Sodium (Warfarin 5 Mg Tab) 5 mg PO 1600 [facility] Stop: 11/19/21 16:01 Warfarin Sodium (Warfarin 2.5 Mg Tab) 2.5 mg PO Adams@1600 [facility] Stop: 11/20/21 16:01 Discontinued Medications Ceftriaxone Sodium (Ceftriaxone 1 Gm Vial) 1 gm IV Q24H [facility] Last Admin: 11/16/21 20:51 Dose: 1 gm Documented by: Furosemide (Furosemide 40 Mg Tab) 40 mg PO DAILY [facility] Last Admin: 11/15/21 08:32 Dose: 40 mg Documented by: Sodium Chloride (Normal Saline) 1,000 mls @ 100 mls/hr IV ASDIRECTED [facility] Last Admin: 11/14/21 18:30 Dose: 100 mls/hr Documented by: Ceftriaxone Sodium 1 gm/ (Sodium Chloride) 50 mls @ 200 mls/hr IV Q24H [facility] Last Admin: 11/15/21 01:02 Dose: Not Given Documented by: Sodium Chloride (Normal Saline) 1,000 mls @ 0 mls/hr IV ASDIRECTED [facility] Last Admin: 11/17/21 13:45 Dose: 30 mls/hr Documented by: Potassium Chloride (Potassium Chloride 20 Meq Tab.Er) 20 meq PO ONETIME ONE Stop: 11/16/21 07:31 Last Admin: 11/16/21 08:15 Dose: 20 meq Documented by: Quetiapine Fumarate (Quetiapine 100 Mg Tab) 100 mg PO BEDTIME [facility] Last Admin: 11/15/21 20:05 Dose: 100 mg Documented by: Warfarin Sodium (Warfarin Sliding Scale) 1 each PO ASDIRECTED [facility] Warfarin Sodium (Warfarin Sliding Scale) 1 each PO ASDIRECTED [facility] Warfarin Sodium (Warfarin 2.5 Mg Tab) 2.5 mg PO ONETIME ONE Stop: 11/14/21 20:16 Last Admin: 11/14/21 21:30 Dose: 2.5 mg Documented by: Warfarin Sodium (Warfarin 2.5 Mg Tab) 2.5 mg PO SuTuWeThSa@1600 [facility] Last Admin: 11/17/21 16:50 Dose: 2.5 mg Documented by: Warfarin Sodium (Warfarin 5 Mg Tab) 5 mg PO MoFr@1600 [facility] - Exam General: Alert, Cooperative, No Acute Distress HEENT: Pupils Equal Neck: Supple Lungs: Clear to Auscultation Cardiovascular: Regular Rate GI/Abdominal Exam: Normal Bowel Sounds Extremities: Pedal Edema - Patient Data Lab Results Last 24 hrs: Laboratory Results - last 24 hr 11/18/21 11/18/21 11/18/21 Range/Units 06:10 06:10 06:10 PT 18.6 H (9.0-11.1) sec INR 1.79 H (1.00-1.24) Sodium 141 (135-145) mmol/L Potassium 3.2 L (3.5-5.3) mmol/L Chloride 109 (100-110) mmol/L Carbon Dioxide 26 (21-32) mmol/L BUN 9 (7-18) mg/dL Creatinine 0.9 (0.55-1.02) mg/dL Est Cr Clr Drug Dosing 36.41 mL/min Estimated GFR (MDRD) > 60 (>60) BUN/Creatinine Ratio 10.0 (9-20) Glucose 92 (80-116) mg/dL Calcium 9.2 (8.6-10.2) mg/dL NT-Pro-B Natriuret Pep 1004 H* (<=450) pg/mL Result Diagrams: 11/17/21 06:05 11/18/21 06:10 Sepsis Event Note - Evaluation Sepsis Screening Result: No Definite Risk - Focused Exam Vital Signs: Vital Signs Temp Temp Pulse Resp BP BP BP 11/18/21 09:27 147/86 H 11/18/21 08:00 99.7 F 88 18 147/86 H 11/18/21 05:40 98.6 F 85 18 127/60 11/18/21 00:00 98.9 F 84 18 131/67 Pulse Ox 11/18/21 09:27 11/18/21 08:00 94 L 11/18/21 05:40 91 L 11/18/21 00:00 94 L - Problem List & Annotations (1) Weakness SNOMED Code(s): 97405700 Code(s): R53.1 - WEAKNESS Status: Acute Current Visit: Yes (2) Altered mental state SNOMED Code(s): 228963674 Code(s): R41.82 - ALTERED MENTAL STATUS, UNSPECIFIED Status: Acute Current Visit: Yes Qualifiers: Altered mental status type: delirium Qualified Code(s): R41.0 - Disorientation, unspecified (3) Bipolar disorder SNOMED Code(s): 40153707 Code(s): F31.9 - BIPOLAR DISORDER, UNSPECIFIED Status: Chronic Current Visit: Yes Qualifiers: Active/Remission status: currently active (4) HTN (hypertension) SNOMED Code(s): 36012821 Code(s): I10 - ESSENTIAL (PRIMARY) HYPERTENSION Status: Chronic Current Visit: Yes Qualifiers: Hypertension type: primary hypertension Qualified Code(s): I10 - Essential (primary) hypertension (5) CKD (chronic kidney disease) SNOMED Code(s): 297568438 Code(s): N18.9 - CHRONIC KIDNEY DISEASE, UNSPECIFIED Status: Acute Current Visit: Yes Qualifiers: Chronic kidney disease stage: stage 3 (moderate) (6) Hypokalemia SNOMED Code(s): 62471957 Code(s): E87.6 - HYPOKALEMIA Status: Acute Current Visit: Yes (7) CHF (congestive heart failure) SNOMED Code(s): 33304150 Code(s): I50.9 - HEART FAILURE, UNSPECIFIED Status: Acute Current Visit: Yes - Problem List Review Problem List Initiated/Reviewed/Updated: Yes - My Orders Last 24 Hours: My Active Orders 11/18/21 16:00 Warfarin [Coumadin] 5 mg PO 1600 11/20/21 16:00 Warfarin [Coumadin] 2.5 mg PO Adams@1600 - Plan Plan:: Patient had recent cough.(11/03/2021). We'll continue with UTI treatment, for 1 more day.DC IVF. Klebsiella pneumonia being treated. Replace potassium. Hold lithium until a new level is obtained. Discharge to jail in 2-3 days.
[2021-11-18] MEDS ORDERED: Warfarin 5 MG Tab PO SCH (16:00)
[2021-11-18] MEDS: Warfarin 5 MG Tab PO SCH (16:18)
[2021-11-19] MEDS: Levothyroxine 125 MCG Tab PO SCH (06:40)
[2021-11-19] MEDS: Anastrozole 1 MG Tab PO SCH (08:27)
[2021-11-19] MEDS: Phytonadione 100 MCG Tab PO SCH (08:29)
--- NOTE | 2021-11-19 09:18 | PCM.PN ---
- General Info Date of Service: 11/19/21 Subjective Update: Patient states that she feels better today, she slept well last night, she has no acute complaints. Denies dysuria. Functional Status: Reports: Pain Controlled - Review of Systems General: Reports: No Symptoms HEENT: Reports: No Symptoms Pulmonary: Reports: No Symptoms - Patient Data Vitals - Most Recent: Last Vital Signs Temp 99.3 F 11/19/21 05:15 Pulse 89 11/19/21 05:15 Resp 16 11/19/21 05:15 BP 129/74 11/19/21 08:27 Pulse Ox 93 L 11/19/21 05:15 Weight - Most Recent: 66.281 kg Lab Results Last 24 Hours: Laboratory Results - last 24 hr 11/19/21 11/19/21 Range/Units 06:35 06:35 PT 19.0 H (9.0-11.1) sec INR 1.83 H (1.00-1.24) Sodium 141 (135-145) mmol/L Potassium 3.5 (3.5-5.3) mmol/L Chloride 109 (100-110) mmol/L Carbon Dioxide 25 (21-32) mmol/L BUN 6 L (7-18) mg/dL Creatinine 0.8 (0.55-1.02) mg/dL Est Cr Clr Drug Dosing 40.96 mL/min Estimated GFR (MDRD) > 60 (>60) BUN/Creatinine Ratio 7.5 L (9-20) Glucose 93 (80-116) mg/dL Calcium 9.2 (8.6-10.2) mg/dL Med Orders - Current: Current Medications Alendronate Sodium (Alendronate 70 Mg Tab) 70 mg PO We@0630 [facility] Last Admin: 11/16/21 06:29 Dose: 70 mg Documented by: Amoxicillin/Clavulanate Potassium (Amoxicillin/Clavulanate K 875-125 Mg Tab) 1 tab PO Q12H [facility] Stop: 11/19/21 23:00 Last Admin: 11/18/21 21:00 Dose: 1 tab Documented by: Anastrozole (Anastrozole 1 Mg Tab) 1 mg PO DAILY [facility] Last Admin: 11/19/21 08:27 Dose: 1 mg Documented by: Enalapril Maleate (Enalapril 10 Mg Tab) 10 mg PO DAILY [facility] Last Admin: 11/19/21 08:27 Dose: 10 mg Documented by: Fluticasone Propionate (Fluticasone Propionate Nasal [place] 16 Gm Bottle) 0 gm DEMARCUS BID PRN PRN Reason: Allergies Levothyroxine Sodium (Levothyroxine 125 Mcg Tab) 125 mcg PO ACBREAKFAST [facility] Last Admin: 11/19/21 06:40 Dose: 125 mcg Documented by: Vesta Carbonate (Vesta Carbonate 300 Mg Cap) 300 mg PO BEDTIME [facility] Last Admin: 11/16/21 21:29 Dose: 300 mg Documented by: Loperamide HCl (Loperamide 2 Mg Cap) 2 mg PO ASDIRECTED PRN PRN Reason: Diarrhea Last Admin: 11/18/21 10:41 Dose: 2 mg Documented by: Phytonadione (Phytonadione 100 Mcg Tab) 100 mcg PO DAILY [facility] Last Admin: 11/19/21 08:29 Dose: 100 mcg Documented by: Quetiapine Fumarate (Quetiapine 50 Mg Tab) 50 mg PO BEDTIME [facility] Last Admin: 11/18/21 20:29 Dose: 50 mg Documented by: Sodium Chloride (Sodium Chloride 0.9% 10 Ml Syringe) 10 ml FLUSH ASDIRECTED PRN PRN Reason: Keep Vein Open Last Admin: 11/14/21 21:30 Dose: 10 ml Documented by: Tuberculin PPD (Tuberculin, Ppd 5 Units/0.1 Ml 1 Ml Mdv) 5 unit IDERM ONETIME ONE Stop: 11/21/21 08:01 Warfarin Sodium (Warfarin Sliding Scale) 1 each PO ASDIRECTED [facility] Warfarin Sodium (Warfarin 5 Mg Tab) 5 mg PO 1600 [facility] Stop: 11/19/21 16:01 Last Admin: 11/18/21 16:18 Dose: 5 mg Documented by: Warfarin Sodium (Warfarin 2.5 Mg Tab) 2.5 mg PO Adams@1600 [facility] Stop: 11/20/21 16:01 Discontinued Medications Ceftriaxone Sodium (Ceftriaxone 1 Gm Vial) 1 gm IV Q24H [facility] Last Admin: 11/16/21 20:51 Dose: 1 gm Documented by: Furosemide (Furosemide 40 Mg Tab) 40 mg PO DAILY [facility] Last Admin: 11/15/21 08:32 Dose: 40 mg Documented by: Sodium Chloride (Normal Saline) 1,000 mls @ 100 mls/hr IV ASDIRECTED [facility] Last Admin: 11/14/21 18:30 Dose: 100 mls/hr Documented by: Ceftriaxone Sodium 1 gm/ (Sodium Chloride) 50 mls @ 200 mls/hr IV Q24H [facility] Last Admin: 11/15/21 01:02 Dose: Not Given Documented by: Sodium Chloride (Normal Saline) 1,000 mls @ 0 mls/hr IV ASDIRECTED [facility] Last Admin: 11/17/21 13:45 Dose: 30 mls/hr Documented by: Potassium Chloride (Potassium Chloride 20 Meq Tab.Er) 20 meq PO ONETIME ONE Stop: 11/16/21 07:31 Last Admin: 11/16/21 08:15 Dose: 20 meq Documented by: Potassium Chloride (Potassium Chloride 20 Meq Tab.Er) 40 meq PO ONETIME ONE Stop: 11/18/21 09:54 Last Admin: 11/18/21 10:41 Dose: 40 meq Documented by: Quetiapine Fumarate (Quetiapine 100 Mg Tab) 100 mg PO BEDTIME [facility] Last Admin: 11/15/21 20:05 Dose: 100 mg Documented by: Warfarin Sodium (Warfarin Sliding Scale) 1 each PO ASDIRECTED [facility] Warfarin Sodium (Warfarin Sliding Scale) 1 each PO ASDIRECTED [facility] Warfarin Sodium (Warfarin 2.5 Mg Tab) 2.5 mg PO ONETIME ONE Stop: 11/14/21 20:16 Last Admin: 11/14/21 21:30 Dose: 2.5 mg Documented by: Warfarin Sodium (Warfarin 2.5 Mg Tab) 2.5 mg PO SuTuWeThSa@1600 [facility] Last Admin: 11/17/21 16:50 Dose: 2.5 mg Documented by: Warfarin Sodium (Warfarin 5 Mg Tab) 5 mg PO MoFr@1600 [facility] - Exam General: Alert. No: Oriented Neck: Supple Lungs: Clear to Auscultation Cardiovascular: Regular Rate GI/Abdominal Exam: Normal Bowel Sounds - Patient Data Lab Results Last 24 hrs: Laboratory Results - last 24 hr 11/19/21 11/19/21 Range/Units 06:35 06:35 PT 19.0 H (9.0-11.1) sec INR 1.83 H (1.00-1.24) Sodium 141 (135-145) mmol/L Potassium 3.5 (3.5-5.3) mmol/L Chloride 109 (100-110) mmol/L Carbon Dioxide 25 (21-32) mmol/L BUN 6 L (7-18) mg/dL Creatinine 0.8 (0.55-1.02) mg/dL Est Cr Clr Drug Dosing 40.96 mL/min Estimated GFR (MDRD) > 60 (>60) BUN/Creatinine Ratio 7.5 L (9-20) Glucose 93 (80-116) mg/dL Calcium 9.2 (8.6-10.2) mg/dL Result Diagrams: 11/17/21 06:05 11/19/21 06:35 Sepsis Event Note - Evaluation Sepsis Screening Result: No Definite Risk - Focused Exam Vital Signs: Vital Signs Temp Pulse Resp BP BP Pulse Ox 11/19/21 08:27 129/74 11/19/21 05:15 99.3 F 89 16 126/68 93 L 11/19/21 00:00 16 - Problem List & Annotations (1) Weakness SNOMED Code(s): 70398913 Code(s): R53.1 - WEAKNESS Status: Acute Current Visit: Yes (2) Altered mental state SNOMED Code(s): 952209677 Code(s): R41.82 - ALTERED MENTAL STATUS, UNSPECIFIED Status: Acute Current Visit: Yes Qualifiers: Altered mental status type: delirium Qualified Code(s): R41.0 - Disorientation, unspecified (3) Bipolar disorder SNOMED Code(s): 03506361 Code(s): F31.9 - BIPOLAR DISORDER, UNSPECIFIED Status: Chronic Current Visit: Yes Qualifiers: Active/Remission status: currently active (4) HTN (hypertension) SNOMED Code(s): 18689699 Code(s): I10 - ESSENTIAL (PRIMARY) HYPERTENSION Status: Chronic Current Visit: Yes Qualifiers: Hypertension type: primary hypertension Qualified Code(s): I10 - Essential (primary) hypertension (5) CKD (chronic kidney disease) SNOMED Code(s): 259154371 Code(s): N18.9 - CHRONIC KIDNEY DISEASE, UNSPECIFIED Status: Acute Current Visit: Yes Qualifiers: Chronic kidney disease stage: stage 3 (moderate) (6) Hypokalemia SNOMED Code(s): 10396435 Code(s): E87.6 - HYPOKALEMIA Status: Acute Current Visit: Yes (7) CHF (congestive heart failure) SNOMED Code(s): 47112590 Code(s): I50.9 - HEART FAILURE, UNSPECIFIED Status: Acute Current Visit: Yes - Problem List Review Problem List Initiated/Reviewed/Updated: Yes - My Orders Last 24 Hours: My Active Orders 11/18/21 16:00 Warfarin [Coumadin] 5 mg PO 1600 11/20/21 09:53 INR,PT,PROTHROMBIN TIME [COAG] DAILY 11/20/21 16:00 Warfarin [Coumadin] 2.5 mg PO Adams@1600 11/21/21 09:53 INR,PT,PROTHROMBIN TIME [COAG] DAILY - Plan Plan:: Continue current treatment,awaiting transfer to [place] on [place]DAY
[2021-11-19] MEDS: Amoxicillin/Clavulanate K 875-125 MG Tab PO SCH ×2 (10:05→21:12)
[2021-11-19] MEDS: Warfarin 5 MG Tab PO SCH (16:04)
[2021-11-19] MEDS: Lithium Carbonate 300 MG Cap PO SCH (21:12)
[2021-11-20] MEDS: Levothyroxine 125 MCG Tab PO SCH (06:30)
[2021-11-20] MEDS: Anastrozole 1 MG Tab PO SCH (08:04)
[2021-11-20] MEDS: Phytonadione 100 MCG Tab PO SCH (08:05)
--- NOTE | 2021-11-20 08:53 | PCM.PN ---
- General Info Date of Service: 11/20/21 Subjective Update: No new complaints Functional Status: Reports: Pain Controlled - Review of Systems General: Reports: No Symptoms HEENT: Reports: No Symptoms Pulmonary: Reports: No Symptoms Cardiovascular: Reports: No Symptoms Gastrointestinal: Reports: No Symptoms - Patient Data Vitals - Most Recent: Last Vital Signs Temp 98.4 F 11/20/21 07:45 Pulse 78 11/20/21 07:45 Resp 18 11/20/21 07:45 BP 128/73 11/20/21 08:04 Pulse Ox 96 11/20/21 07:45 Weight - Most Recent: 66.706 kg Lab Results Last 24 Hours: Laboratory Results - last 24 hr 11/20/21 Range/Units 06:10 PT 19.3 H (9.0-11.1) sec INR 1.86 H (1.00-1.24) Med Orders - Current: Current Medications Alendronate Sodium (Alendronate 70 Mg Tab) 70 mg PO We@0630 [facility] Last Admin: 11/16/21 06:29 Dose: 70 mg Documented by: Anastrozole (Anastrozole 1 Mg Tab) 1 mg PO DAILY [facility] Last Admin: 11/20/21 08:04 Dose: 1 mg Documented by: Enalapril Maleate (Enalapril 10 Mg Tab) 10 mg PO DAILY [facility] Last Admin: 11/20/21 08:04 Dose: 10 mg Documented by: Fluticasone Propionate (Fluticasone Propionate Nasal [place] 16 Gm Bottle) 0 gm DEMARCUS BID PRN PRN Reason: Allergies Levothyroxine Sodium (Levothyroxine 125 Mcg Tab) 125 mcg PO ACBREAKFAST [facility] Last Admin: 11/20/21 06:30 Dose: 125 mcg Documented by: [place] Carbonate ([place] Carbonate 300 Mg Cap) 300 mg PO BEDTIME [facility] Last Admin: 11/19/21 21:12 Dose: 300 mg Documented by: Loperamide HCl (Loperamide 2 Mg Cap) 2 mg PO ASDIRECTED PRN PRN Reason: Diarrhea Last Admin: 11/18/21 10:41 Dose: 2 mg Documented by: Phytonadione (Phytonadione 100 Mcg Tab) 100 mcg PO DAILY [facility] Last Admin: 11/20/21 08:05 Dose: 100 mcg Documented by: Quetiapine Fumarate (Quetiapine 50 Mg Tab) 50 mg PO BEDTIME [facility] Last Admin: 11/19/21 21:12 Dose: 50 mg Documented by: Sodium Chloride (Sodium Chloride 0.9% 10 Ml Syringe) 10 ml FLUSH ASDIRECTED PRN PRN Reason: Keep Vein Open Last Admin: 11/14/21 21:30 Dose: 10 ml Documented by: Tuberculin PPD (Tuberculin, Ppd 5 Units/0.1 Ml 1 Ml Mdv) 5 unit IDERM ONETIME ONE Stop: 11/21/21 08:01 Warfarin Sodium (Warfarin Sliding Scale) 1 each PO ASDIRECTED [facility] Warfarin Sodium (Warfarin 2.5 Mg Tab) 2.5 mg PO Adams@1600 [facility] Stop: 11/20/21 16:01 Discontinued Medications Amoxicillin/Clavulanate Potassium (Amoxicillin/Clavulanate K 875-125 Mg Tab) 1 tab PO Q12H [facility] Stop: 11/19/21 23:00 Last Admin: 11/19/21 21:12 Dose: 1 tab Documented by: Ceftriaxone Sodium (Ceftriaxone 1 Gm Vial) 1 gm IV Q24H [facility] Last Admin: 11/16/21 20:51 Dose: 1 gm Documented by: Furosemide (Furosemide 40 Mg Tab) 40 mg PO DAILY [facility] Last Admin: 11/15/21 08:32 Dose: 40 mg Documented by: Sodium Chloride (Normal Saline) 1,000 mls @ 100 mls/hr IV ASDIRECTED [facility] Last Admin: 11/14/21 18:30 Dose: 100 mls/hr Documented by: Ceftriaxone Sodium 1 gm/ (Sodium Chloride) 50 mls @ 200 mls/hr IV Q24H [facility] Last Admin: 11/15/21 01:02 Dose: Not Given Documented by: Sodium Chloride (Normal Saline) 1,000 mls @ 0 mls/hr IV ASDIRECTED [facility] Last Admin: 11/17/21 13:45 Dose: 30 mls/hr Documented by: Potassium Chloride (Potassium Chloride 20 Meq Tab.Er) 20 meq PO ONETIME ONE Stop: 11/16/21 07:31 Last Admin: 11/16/21 08:15 Dose: 20 meq Documented by: Potassium Chloride (Potassium Chloride 20 Meq Tab.Er) 40 meq PO ONETIME ONE Stop: 11/18/21 09:54 Last Admin: 11/18/21 10:41 Dose: 40 meq Documented by: Quetiapine Fumarate (Quetiapine 100 Mg Tab) 100 mg PO BEDTIME [facility] Last Admin: 11/15/21 20:05 Dose: 100 mg Documented by: Warfarin Sodium (Warfarin Sliding Scale) 1 each PO ASDIRECTED [facility] Warfarin Sodium (Warfarin Sliding Scale) 1 each PO ASDIRECTED [facility] Warfarin Sodium (Warfarin 2.5 Mg Tab) 2.5 mg PO ONETIME ONE Stop: 11/14/21 20:16 Last Admin: 11/14/21 21:30 Dose: 2.5 mg Documented by: Warfarin Sodium (Warfarin 2.5 Mg Tab) 2.5 mg PO SuTuWeThSa@1600 [facility] Last Admin: 11/17/21 16:50 Dose: 2.5 mg Documented by: Warfarin Sodium (Warfarin 5 Mg Tab) 5 mg PO MoFr@1600 [facility] Warfarin Sodium (Warfarin 5 Mg Tab) 5 mg PO 1600 [facility] Stop: 11/19/21 16:01 Last Admin: 11/19/21 16:04 Dose: 5 mg Documented by: - Exam General: Alert. No: Oriented HEENT: Pupils Equal Neck: Supple Lungs: Clear to Auscultation Cardiovascular: Regular Rate - Patient Data Lab Results Last 24 hrs: Laboratory Results - last 24 hr 11/20/21 Range/Units 06:10 PT 19.3 H (9.0-11.1) sec INR 1.86 H (1.00-1.24) Result Diagrams: 11/17/21 06:05 11/19/21 06:35 Sepsis Event Note - Evaluation Sepsis Screening Result: No Definite Risk - Focused Exam Vital Signs: Vital Signs Temp Temp Pulse Resp BP BP BP 11/20/21 08:04 128/73 11/20/21 07:45 98.4 F 78 18 128/73 11/20/21 06:00 97.9 F 78 16 130/71 11/20/21 01:30 97.8 F 85 16 119/61 Pulse Ox 11/20/21 08:04 11/20/21 07:45 96 11/20/21 06:00 94 L 11/20/21 01:30 92 L - Problem List & Annotations (1) Weakness SNOMED Code(s): 63618538 Code(s): R53.1 - WEAKNESS Status: Acute Current Visit: Yes (2) Altered mental state SNOMED Code(s): 571795786 Code(s): R41.82 - ALTERED MENTAL STATUS, UNSPECIFIED Status: Acute Current Visit: Yes Qualifiers: Altered mental status type: delirium Qualified Code(s): R41.0 - Disorientation, unspecified (3) Bipolar disorder SNOMED Code(s): 74110127 Code(s): F31.9 - BIPOLAR DISORDER, UNSPECIFIED Status: Chronic Current Visit: Yes Qualifiers: Active/Remission status: currently active (4) HTN (hypertension) SNOMED Code(s): 81119781 Code(s): I10 - ESSENTIAL (PRIMARY) HYPERTENSION Status: Chronic Current Visit: Yes Qualifiers: Hypertension type: primary hypertension Qualified Code(s): I10 - Essential (primary) hypertension (5) CKD (chronic kidney disease) SNOMED Code(s): 709299531 Code(s): N18.9 - CHRONIC KIDNEY DISEASE, UNSPECIFIED Status: Acute Current Visit: Yes Qualifiers: Chronic kidney disease stage: stage 3 (moderate) (6) Hypokalemia SNOMED Code(s): 05954078 Code(s): E87.6 - HYPOKALEMIA Status: Acute Current Visit: Yes (7) CHF (congestive heart failure) SNOMED Code(s): 00037149 Code(s): I50.9 - HEART FAILURE, UNSPECIFIED Status: Acute Current Visit: Yes - Problem List Review Problem List Initiated/Reviewed/Updated: Yes - My Orders Last 24 Hours: My Active Orders 11/20/21 16:00 Warfarin [Coumadin] 2.5 mg PO Adams@1600 11/21/21 09:53 INR,PT,PROTHROMBIN TIME [[facility]] DAILY - Plan Plan:: Continue current treatment,awaiting transfer to [place] on TOMORROW
[2021-11-20] MEDS ORDERED: Warfarin 5 MG Tab PO SCH (16:00)
[2021-11-20] MEDS ORDERED: Warfarin 2.5 MG Tab PO SCH (16:00)
[2021-11-20] MEDS: Lithium Carbonate 300 MG Cap PO SCH (20:30)
[2021-11-21] MEDS: Levothyroxine 125 MCG Tab PO SCH (06:30)
[2021-11-21] MEDS ORDERED: Tuberculin, PPD 5 Units/0.1 ML 1 ML MDV IDERM ONE (08:00)
[2021-11-21] MEDS: Anastrozole 1 MG Tab PO SCH (08:25)
[2021-11-21] MEDS: Phytonadione 100 MCG Tab PO SCH (08:26)
--- NOTE | 2021-11-21 09:30 | DISCH ---
DISCHARGE DATE: 11/21/2021 REASON FOR VISIT: 1. Generalized weakness and debility. 2. Hypertension. 3. Acute exacerbation of congestive heart failure. 4. Chronic kidney disease. 5. Coronary artery disease. 6. Hypothyroidism. 7. Urinary tract infection. DISCHARGE DIAGNOSES: 1. Generalized weakness and debility. 2. Hypertension. 3. Acute exacerbation of congestive heart failure. 4. Chronic kidney disease. 5. Coronary artery disease. 6. Hypothyroidism. 7. Urinary tract infection. 8. Bipolar II disorder. 9. Atrial fibrillation. HOSPITAL COURSE: A 80-year-old female admitted from the [facility] with weakness, alteration of mental status. She was treated for UTI and hypokalemia. She is deemed ready to return back today having finished a course of antibiotics. She will go home on her usual home medications. It is of note, lithium had been held based on the high level, but this was restarted at discharge. The Coumadin will be 2.5 mg on Sunday, Sunday, and Sunday, 5 mg on the rest of the days. It is recommended that she check INR on Sunday. I spent more than 35 minutes in the discharge of the patient. /[id number] TAHMINA/MARTHA
== END 2021-11-21 10:45 | DRG 682 ==
LOC: FB.ED 16:20 → FB.MS 17:57 → UNDODISIN 19:50
PROVIDERS: ADMIT Student in an Organized Health Care Education/Training Program; ATTEND Family Medicine
DX: I50.9 Heart failure, unspecified (principal); I11.0 Hypertensive heart disease with heart failure; N17.9 Acute kidney failure, unspecified; I50.33 Acute on chronic diastolic (congestive) heart failure; N39.0 Urinary tract infection, site not specified; I13.0 Hypertensive heart and chronic kidney disease with heart failure and stage 1 through stage 4 chronic kidney disease, or unspecified chronic kidney disease; I25.10 Atherosclerotic heart disease of native coronary artery without angina pectoris; K00.0 Anodontia; E03.9 Hypothyroidism, unspecified; Z51.5 Encounter for palliative care; H54.7 Unspecified visual loss; I48.91 Unspecified atrial fibrillation; E87.6 Hypokalemia; J30.9 Allergic rhinitis, unspecified; H40.9 Unspecified glaucoma; E78.00 Pure hypercholesterolemia, unspecified; N18.9 Chronic kidney disease, unspecified; K21.9 Gastro-esophageal reflux disease without esophagitis; K57.90 Diverticulosis of intestine, part unspecified, without perforation or abscess without bleeding; M19.90 Unspecified osteoarthritis, unspecified site; F31.9 Bipolar disorder, unspecified; F41.9 Anxiety disorder, unspecified; E53.8 Deficiency of other specified B group vitamins; Z85.3 Personal history of malignant neoplasm of breast; Z86.16 Personal history of COVID-19; Z79.899 Other long term (current) drug therapy; Z79.01 Long term (current) use of anticoagulants; Z79.890 Hormone replacement therapy; Z90.89 Acquired absence of other organs; Z90.49 Acquired absence of other specified parts of digestive tract; Z90.11 Acquired absence of right breast and nipple
CPT/HCPCS: 36415; 71046; 80048; 80178; 83735; 83880; 84484; 85025; 85610; 86580; 93005; 93010; 97110-GO; 97116-GP; 97161-GP; 97166-GO; 97530-GO; 97535-GO; 99284; 99285-25; A9270-GY; J0696; J7030

== ENCOUNTER 2021-12-28 16:52 | Inpatient (IN) | payer MEDICARE ==
[2021-12-28] MEDS ORDERED: Sodium Chloride 0.9% 10 ML Syringe FLUSH PRN (17:34)
[2021-12-28] MEDS ORDERED: Furosemide 20 MG/2 ML VIAL IVPUSH ONE (18:45)
[2021-12-28] MEDS: Sodium Chloride 0.9% 1,000 ML IV SCH (19:02)
[2021-12-28] MEDS: QUEtiapine 100 MG Tab PO SCH (20:10)
[2021-12-29] MEDS: LEVOTHYROXINE 112 MCG TAB PO SCH (05:55)
[2021-12-29] MEDS ORDERED: Furosemide 40 MG/4 ML VIAL IVPUSH ONE (08:28)
[2021-12-29] MEDS ORDERED: Cyanocobalamin (Vitamin B12) 1,000 MCG Tab PO SCH (09:00)
[2021-12-29] MEDS: Anastrozole 1 MG Tab PO SCH (09:15)
[2021-12-29] MEDS: Potassium Chloride 10 MEQ Tab.ER PO SCH (09:15)
[2021-12-29] MEDS: Aspirin 81 MG Tab.EC PO SCH (09:15)
[2021-12-29] MEDS: MULTIVITAMIN PO SCH (09:16)
[2021-12-29] MEDS: Divalproex Sodium Delayed-Release 125 MG Cap.Sprink PO SCH (21:03)
[2021-12-29] MEDS: QUEtiapine 100 MG Tab PO SCH (21:03)
[2021-12-29] MEDS: Wheat Dextrin Powder 244 GM Container PO SCH (21:04)
[2021-12-30] MEDS: Sodium Chloride 0.9% 1,000 ML IV SCH (04:06)
[2021-12-30] MEDS: LEVOTHYROXINE 112 MCG TAB PO SCH (06:28)
[2021-12-30] MEDS: Wheat Dextrin Powder 244 GM Container PO SCH ×2 (09:16→20:20)
[2021-12-30] MEDS: Anastrozole 1 MG Tab PO SCH (09:16)
[2021-12-30] MEDS: Aspirin 81 MG Tab.EC PO SCH (09:17)
[2021-12-30] MEDS: Potassium Chloride 10 MEQ Tab.ER PO SCH (09:18)
[2021-12-30] MEDS: MULTIVITAMIN PO SCH (09:19)
[2021-12-30] MEDS ORDERED: Furosemide 20 MG/2 ML VIAL IV ONE (09:45)
[2021-12-30] MEDS: Loperamide 2 MG Cap PO PRN (20:21)
[2021-12-30] MEDS: Divalproex Sodium Delayed-Release 125 MG Cap.Sprink PO SCH (20:22)
[2021-12-31] MEDS: Sodium Chloride 0.9% 1,000 ML IV SCH (00:10)
[2021-12-31] MEDS: LEVOTHYROXINE 112 MCG TAB PO SCH (05:38)
[2021-12-31] MEDS: Loperamide 2 MG Cap PO PRN ×2 (06:15→11:20)
[2021-12-31] MEDS: Anastrozole 1 MG Tab PO SCH (08:15)
[2021-12-31] MEDS: Aspirin 81 MG Tab.EC PO SCH (08:15)
[2021-12-31] MEDS: Potassium Chloride 10 MEQ Tab.ER PO SCH (08:15)
[2021-12-31] MEDS: Wheat Dextrin Powder 244 GM Container PO SCH (08:16)
[2021-12-31] MEDS ORDERED: Multivitamin Tab PO SCH (09:00)
[2021-12-31] MEDS ORDERED: Cyanocobalamin (Vitamin B12) 500 MCG Tab PO SCH (09:00)
[2021-12-31] MEDS ORDERED: Furosemide 40 MG/4 ML VIAL IVPUSH ONE (09:37)
[2021-12-31] MEDS ORDERED: Potassium Chloride 10 MEQ Tab.ER PO SCH (14:00)
[2021-12-31] MEDS ORDERED: QUEtiapine 100 MG Tab PO SCH (21:00)
== END 2021-12-31 12:35 | DRG 641 ==
LOC: FB.MS 17:11 → OBSVTOIN 12-30 10:57
PROVIDERS: ADMIT Family Medicine; ATTEND Family Medicine
DX: E83.52 Hypercalcemia (principal); N17.9 Acute kidney failure, unspecified; R53.1 Weakness; E86.0 Dehydration; I50.9 Heart failure, unspecified; T43.595A Adverse effect of other antipsychotics and neuroleptics, initial encounter; K52.9 Noninfective gastroenteritis and colitis, unspecified; Z51.5 Encounter for palliative care; K21.9 Gastro-esophageal reflux disease without esophagitis; F31.9 Bipolar disorder, unspecified; J30.9 Allergic rhinitis, unspecified; H40.9 Unspecified glaucoma; I11.0 Hypertensive heart disease with heart failure; E03.9 Hypothyroidism, unspecified; E78.00 Pure hypercholesterolemia, unspecified; M19.90 Unspecified osteoarthritis, unspecified site; E53.8 Deficiency of other specified B group vitamins; K57.90 Diverticulosis of intestine, part unspecified, without perforation or abscess without bleeding; H54.7 Unspecified visual loss; F41.9 Anxiety disorder, unspecified; R19.7 Diarrhea, unspecified; Z90.13 Acquired absence of bilateral breasts and nipples; Z79.82 Long term (current) use of aspirin; Z79.890 Hormone replacement therapy; Z79.899 Other long term (current) drug therapy; Z98.49 Cataract extraction status, unspecified eye; Z90.49 Acquired absence of other specified parts of digestive tract; Z85.3 Personal history of malignant neoplasm of breast
CPT/HCPCS: 36415 ×2; 80053; 80069; 80178; 82306; 83970; A9270 ×15; J1940 ×3; J7030 ×2; 74019; 74176; 96374; 96375; 96376; G0378; G0379

== ENCOUNTER 2022-03-14 09:46 | Day surgery (SDC) | payer MEDICARE ==
[~2022-03-14 09:46] MED LIST: Lactated Ringers 1,000 ML IV PRN; Sodium Chloride 0.9% 10 ML Syringe FLUSH PRN; acetaZOLAMIDE 500 MG Cap.ER PO ONE
[2022-03-14] MEDS ORDERED: fentaNYL 100 MCG/2 ML SDV IV ONE (09:47)
[2022-03-14] MEDS ORDERED: Midazolam 1 MG/ML 2 ML SDV IV ONE (09:47)
[2022-03-14] MEDS: acetaZOLAMIDE 500 MG Cap.ER PO ONE (11:47)
== END 2022-03-14 11:55 ==
LOC: FB.SDS 09:46
PROVIDERS: ATTEND Ophthalmology
DX: H25.21 Age-related cataract, morgagnian type, right eye (principal); H25.12 Age-related nuclear cataract, left eye; H40.1131 Primary open-angle glaucoma, bilateral, mild stage; E87.6 Hypokalemia; E83.51 Hypocalcemia; K21.9 Gastro-esophageal reflux disease without esophagitis; E78.00 Pure hypercholesterolemia, unspecified; E03.9 Hypothyroidism, unspecified; Z79.899 Other long term (current) drug therapy; Z98.890 Other specified postprocedural states; Z87.891 Personal history of nicotine dependence
CPT/HCPCS: 00142-QZ; A9270-GY; J2250; J3010

== ENCOUNTER 2022-03-28 10:08 | Day surgery (SDC) | payer MEDICARE ==
[~2022-03-28 10:08] MED LIST changes: -Sodium Chloride 0.9% 10 ML Syringe FLUSH PRN; -acetaZOLAMIDE 500 MG Cap.ER PO ONE
[2022-03-28] MEDS ORDERED: fentaNYL 100 MCG/2 ML SDV IV ONE (10:09)
[2022-03-28] MEDS ORDERED: Midazolam 1 MG/ML 2 ML SDV IV ONE (10:09)
[2022-03-28] MEDS ORDERED: Labetalol 100 MG/20 ML MDV IV ONE (10:09)
[2022-03-28] MEDS ORDERED: Sodium Chloride 0.9% 10 ML Syringe IV ONE (10:09)
[2022-03-28] MEDS: acetaZOLAMIDE 500 MG Cap.ER PO ONE (11:42)
[2022-03-28] MEDS: Sodium Chloride 0.9% 10 ML Syringe FLUSH PRN (12:31)
== END 2022-03-28 12:05 | disposition home or self-care (01) ==
LOC: FB.SDS 10:08
PROVIDERS: ATTEND Ophthalmology
DX: H25.21 Age-related cataract, morgagnian type, right eye (principal); H25.12 Age-related nuclear cataract, left eye; H40.1131 Primary open-angle glaucoma, bilateral, mild stage; H35.033 Hypertensive retinopathy, bilateral; E87.6 Hypokalemia; E83.51 Hypocalcemia; F41.9 Anxiety disorder, unspecified; F31.9 Bipolar disorder, unspecified; K21.9 Gastro-esophageal reflux disease without esophagitis; E78.00 Pure hypercholesterolemia, unspecified; I10 Essential (primary) hypertension; E03.9 Hypothyroidism, unspecified; Z87.891 Personal history of nicotine dependence; Z79.899 Other long term (current) drug therapy
CPT/HCPCS: 00142; 66984; A9270; J2250; J3010; J3490; V2632